=== PATIENT | female | born 1950 | race Caucasian/White ===

== ENCOUNTER → 2016-11-04 | Outpatient (CLI) | payer BC ==
--- NOTE | 2016-11-05 07:54 | MM ---
Reason for exam: screening (asymptomatic). Last mammogram was performed 2 years and 3 months ago. History: Patient is postmenopausal and has history of other cancer at age 59. Took hormonal contraceptives for 20 years. Physical Findings: A clinical breast exam by your physician is recommended on an annual basis and results should be correlated with mammographic findings. MG 3D Screening Mammo W/Cad Bilateral CC and MLO view(s) were taken. Prior study comparison: August 15, 2014, bilateral MG diagnostic mammo w CAD [facility]. January 03, 2013, [facility] DIGITAL LEFT BREAST MAMMOGRAM w/CAD. There are scattered fibroglandular densities. There is chronic nodularity bilaterally. No significant changes when compared with prior studies. ASSESSMENT: Benign, BI-RAD 2 RECOMMENDATION: Routine screening mammogram of both breasts in 1 year.
== END | disposition home or self-care (01) ==
LOC: RADMAMWWP 13:15
PROVIDERS: ATTEND Internal Medicine
DX: Z12.31 Encounter for screening mammogram for malignant neoplasm of breast (principal)
CPT/HCPCS: 77063; G0202

== ENCOUNTER → 2017-05-21 | Outpatient (CLI) | payer BC ==
[2017-05-21 13:24] LABS: Non-African American GFR(MDRD) >60 (>60 ml/min/1.73 sqM)
--- NOTE | 2017-05-27 16:20 | BMR ---
EXAMINATION TYPE: MR breast BILAT wo/w con DATE OF EXAM: 05/21/2017 COMPARISON: MRI Breast from an outside institution dated 01/05/2017. 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 History of chemotherapy without radiation. TECHNIQUE: A series of fat and water weighted images in the long and short axis views of both breasts are obtained in conjunction with dynamic contrast MRI with subtraction technique. The patient was i njected with 8 mL intravenous Gadavist gadolinium contrast. Three-dimensional and additional postpr ocessing imaging is created on independent workstation and reviewed during official interpretation of this study. FINDINGS: The breasts are composed of heterogenous fibroglandular tissue with asymmetric mild backgro und parenchymal enhancement. Distinct asymmetric moderate left breast thickening and edema is seen globally. Right breast: MediPort has been placed. No suspicious mass or nonmass enhancement. No skin thickening . No right-sided suspicious intramammary, internal mammary, or axillary adenopathy. Left breast: There is decrease in degree of enhancement of the known biopsy proven invasive ductal ca rcinoma at the 2:00 to 3:00 position, however this region has elongated now measuring 6.8 x 1.7 cm in anterior posterior by transverse dimensions (previously measuring 5.0 x 2.0 cm). Susceptibility ramonita fact is seen centrally within this region from prior biopsy. The previously seen suspicious mass at the 6:00 position approximately 9 cm from the nipple that mindy ured 1.6 x 1.3 x 1.2 cm is no longer evident on MR demonstrating response to treatment. The previously seen suspicious left axillary lymph nodes have decreased in size, however few lymph no elbert are clustered within the upper outer quadrant at posterior depth with somewhat rounded morphology . No suspicious internal mammary adenopathy is seen. Varicosity is noted from the right internal mamm eddy vasculature. IMPRESSION: BI-RADS [id number] left breast malignancy. There is response to treatment with decreased degree of enhancement in the biopsy-proven invasive ductal carcinoma the 2-3:00 position within the left evelyn ast and no appreciable enhancement of the previously described 1.6 cm mass at the 6:00 position appro ximately 9 cm from the nipple. The biopsy-proven carcinoma does appear more elongated on today's exam ination now measuring 6.8 x 1.7 cm and previously measuring 5.0 x 2.0 cm. If lumpectomy is planned de spite the elongated nature of the mass mammographic guided localization could be performed.
== END | disposition home or self-care (01) ==
LOC: RADMRIMAIN 12:43
PROVIDERS: ATTEND Surgery
DX: C50.912 Malignant neoplasm of unspecified site of left female breast (principal)
CPT/HCPCS: 82565; 77059; 0159T; 36415; A9581

== ENCOUNTER 2017-06-08 10:01 | Inpatient (IN) | payer BC ==
[2017-06-03 08:33] VITALS: BMI 31.9
[~2017-06-08 10:01] MED LIST: DEXAMETHASONE SOD PHOSPHATE 10 MG/ML 1 ML VIAL IV ONE; HEPARIN SODIUM,PORCINE 5,000 UNIT/ML 1 ML VIAL SQ ONE; HYDROmorphone 0.5 MG/0.5 ML SYRINGE IVP PRN; LACTATED RINGERS 1,000 ML IV SCH; LIDOCAINE 1% 20 ML VIAL (10MG/ML) FOR IV START INTRADERMA PRN; MIDAZOLAM 2 MG/2 ML VIAL IV PRN; ONDANSETRON 4 MG/2 ML VIAL IVP ONE; Pre Op ABX Message 1 EACH MISC MISCELLANE ONE; SCOPOLAMINE 1.5MG/72HR PATCH TRANSDERM ONE; ceFAZolin 2 GM in SODIUM CHLORIDE 0.9% 100 ML IVPB ONE
[2017-06-08] MEDS ORDERED: ALPRAZolam 0.5 MG TAB PO ONE (10:21)
[2017-06-08] MEDS ORDERED: METHYLENE BLUE 10 MG/ML (10 ML VIAL) INJ ONE (10:43)
--- NOTE | 2017-06-08 11:35 | NM ---
EXAMINATION TYPE: NM sentinel node injection DATE OF EXAM: 06/08/2017 COMPARISON: NONE HISTORY: Left-sided breast cancer TECHNIQUE AND FINDINGS: The procedure of sentinel lymph node injection was explained to the patient. The benefits, alternatives, and risks were discussed. An informed consent was then obtained. Overlying skin is cleaned with sterile alcohol. Lidocaine buffered with bicarbonate was used as anes thetic into the skin and subcutaneous tissue surrounding the nipple. Following this, 537 uCi Tc 99m Filtered Sulfur Colloid was injected into 4 equivalent doses at 12, 3, 6, and 9:00 position surroundi ng the left nipple intradermally. The injection sites were massaged by nuclear fuels research engineer for 10 minutes after injection. T he patient tolerated the procedure well without any immediate complication. The patient was kept in the radiology department for short stay after the procedure and then taken to surgery for surgical pr ocedure what is presumed intraoperative gamma probe will be used for sentinel lymph node detection. IMPRESSION: Left breast radiotracer injection for sentinel node localization as above.
[2017-06-08] MEDS ORDERED: LIDOCAINE 1% INJ 10MG/ML (20 ML MDV) ONE (12:19)
[2017-06-08] MEDS ORDERED: PROPOFOL 10 MG/ML 20 ML VIAL IV ONE (12:19)
[2017-06-08] MEDS ORDERED: HYDROmorphone (PF) 1 MG/ML ONE (12:19)
[2017-06-08] MEDS ORDERED: PHENYLEPHRINE-0.9% NACL SYG 1 MG/10 ML SYRINGE ONE (12:19)
[2017-06-08] MEDS ORDERED: SUCCINYLCHOLINE CHLORIDE 100 MG/5 ML SYR IV ONE (12:19)
[2017-06-08] MEDS ORDERED: MIDAZOLAM 2 MG/2 ML VIAL ONE (12:19)
[2017-06-08] MEDS ORDERED: fentaNYL (PF) 50 MCG/ML 2 ML AMP ONE (12:19)
[2017-06-08] MEDS ORDERED: ONDANSETRON 4 MG/2 ML VIAL IVP PRN (12:28)
[2017-06-08] MEDS ORDERED: LACTATED RINGERS 1,000 ML IV ONE (14:20)
[2017-06-08 15:09] LABS: Glucose,Whole Blood 128 mg/dL (75-99)
[2017-06-08] MEDS: HYDROmorphone 1 MG/ML 1 ML SYRINGE IVP PRN ×4 (15:27→15:34)
[2017-06-08] MEDS: HYDROcodone/APAP 5-325MG 1 EACH TAB PO PRN ×2 (16:30→19:56)
[2017-06-08] MEDS: LACTATED RINGERS 1,000 ML IV SCH ×2 (17:00→23:29)
[2017-06-08] MEDS: HEPARIN SODIUM,PORCINE 5,000 UNIT/ML 1 ML VIAL SQ SCH ×2 (18:09→23:45)
[2017-06-08] MEDS ORDERED: ACETAMINOPHEN TAB 325 MG TAB PO PRN (18:44)
[2017-06-08] MEDS ORDERED: FUROSEMIDE 20 MG TAB PO PRN (18:44)
[2017-06-08] MEDS ORDERED: ALPRAZolam 0.25 MG TAB PO PRN (18:44)
[2017-06-08] MEDS: VITAMIN E (DL,TOCOPHERYL ACET) 400 UNIT CAP PO SCH (21:12)
[2017-06-09] MEDS: HYDROmorphone 1 MG/ML 1 ML SYRINGE IVP PRN (01:17)
[2017-06-09] MEDS: HYDROcodone/APAP 5-325MG 1 EACH TAB PO PRN ×3 (05:41→15:19)
[2017-06-09 06:10] LABS: Glucose,Whole Blood 148 mg/dL (75-99)
[2017-06-09 06:23] LABS: Basophils % (A) 0 %; CH 30.6; Eosinophils # (A) 0.1 k/uL (0-0.7); Eosinophils % (A) 1 %; HCT 28.2 % (34.0-46.0); Luc # (Auto) 0.19; Luc % (Auto) 2; Lymphocytes # (A) 2.1 k/uL (1.0-4.8); Lymphocytes % (A) 22 %; MCH 30.3 pg (25.0-35.0); MCHC 32.5 g/dL (31.0-37.0); MCV 93.3 fL (80.0-100.0); Mean Platelet Volume 6.6; Monocytes # (A) 0.7 k/uL (0-1.0); Monocytes % (A) 7 %; Neutrophils # (A) 6.3 k/uL (1.3-7.7); Neutrophils % (A) 67 %; RBC 3.02 m/uL (3.80-5.40); RDW 13.7 % (11.5-15.5); WBC 9.4 k/uL (3.8-10.6); WBC (Perox) 9.62
[2017-06-09 06:24] LABS: HGB 9.2 gm/dL (11.4-16.0)
[2017-06-09 06:53] LABS: ALT 28 U/L (9-52); AST 21 U/L (14-36); Alkaline Phosphatase 52 U/L (38-126); Anion Gap 8 mmol/L; Blood Urea Nitrogen 17 mg/dL (7-17); Calcium 8.4 mg/dL (8.4-10.2); Carbon Dioxide 23 mmol/L (22-30); Chloride 103 mmol/L (98-107); Glucose 170 mg/dL (74-99); Magnesium 1.5 mg/dL (1.6-2.3); Non-African American GFR(MDRD) >60 (>60 ml/min/1.73 sqM); Phosphorous 3.9 mg/dL (2.5-4.5); Potassium 4.4 mmol/L (3.5-5.1); Sodium 134 mmol/L (137-145); Total Bilirubin 0.4 mg/dL (0.2-1.3); Total Protein 4.8 g/dL (6.3-8.2)
[2017-06-09] MEDS ORDERED: SODIUM CHLORIDE 0.9% 1,000 ML IV ONE (07:16)
[2017-06-09] MEDS ORDERED: RX INFO: IV CONTRAST WAS GIVEN 1 EACH MISC MISCELLANE PRN ×3 (07:18→12:06)
--- NOTE | 2017-06-09 08:19 | CT ---
EXAMINATION TYPE: CT chest angio for PE DATE OF EXAM: 06/09/2017 COMPARISON: 08/16/2012. HISTORY: PE, Lt mastectomy yesterday CT DLP: 664 mGycm. Automated Exposure Control for Dose Reduction was Utilized. CONTRAST: CTA scan of the thorax is performed with IV Contrast, patient injected with 100 mL of Omnipaque 350, pulmonary embolism protocol. MIP Images are created on CT scanner and reviewed. FINDINGS: LUNGS: Minimal subsegmental bibasilar dependent atelectasis is present, left greater than right. Righ t hemidiaphragm elevation is seen, similar to the exam of 08/16/2012. The lungs are grossly clear, th ere is no concerning parenchymal mass or nodule identified. There is no pleural effusion or pneumot horax seen. The tracheobronchial tree is patent. MEDIASTINUM: There is satisfactory enhancement of the pulmonary artery and its branches, there is no CT evidence for pulmonary embolism. There are no greater than 1 cm hilar or mediastinal lymph nodes. No cardiomegaly or pericardial effusion is seen. OTHER: Extensive inflammatory fat stranding, subcutaneous edema, and skin thickening as well as subcu taneous emphysema are seen of the left chest wall insinuating into the axilla. Surgical drain is also placed within the left chest wall. Few nonenlarged left supraclavicular lymph nodes are noted. Small hiatal hernia is seen with surgical sutures around the gastroesophageal junction. Osseous structures appear intact. IMPRESSION: 1. No evidence of pulmonary embolus. 2. Postoperative changes of extensive inflammatory fat stranding, subcutaneous edema, skin thickening , and subcutaneous edema of the left chest wall extending into the axilla with surgical drain in plac e. 3. Minimal bibasilar subsegmental dependent atelectasis, left greater than right.
[2017-06-09] MEDS: PANTOPRAZOLE 40 MG/10 ML VIAL IVP SCH (08:49)
[2017-06-09] MEDS: HEPARIN SODIUM,PORCINE 5,000 UNIT/ML 1 ML VIAL SQ SCH ×3 (08:49→23:30)
[2017-06-09] MEDS: ESCITALOPRAM 10 MG TAB PO SCH (08:49)
[2017-06-09] MEDS: VITAMIN E (DL,TOCOPHERYL ACET) 400 UNIT CAP PO SCH ×2 (08:49→20:30)
[2017-06-09] MEDS ORDERED: LISINOPRIL 10 MG TAB PO SCH (09:00)
[2017-06-09] MEDS ORDERED: NON-FORMULARY DRUG (Omega-3 Fatty Acids/Fish Oil [Fish Oil 1,000 Mg Softgel] 1 EACH) PO SCH (09:00)
[2017-06-09] MEDS ORDERED: NON-FORMULARY DRUG (Biotin [Biotin] 300 MCG) PO SCH (09:00)
[2017-06-09] MEDS: SODIUM CHLORIDE 0.9% 1,000 ML IV SCH ×2 (10:39→20:29)
[2017-06-09] MEDS: CALCIUM CARB-VIT D 500MG-200UN 1 EACH TAB PO SCH ×2 (10:39→18:00)
[2017-06-09 11:17] LABS: Glucose,Whole Blood 209 mg/dL (75-99)
--- NOTE | 2017-06-09 11:28 | P.CONS ---
History of Present Illness - Reason for Consult Consult date: 06/09/17 medical management Requesting physician: Preciosu Lubin - Chief Complaint status post a modified left mastectomy with lymph node dissection. - History of Present Illness This is a 66-year-old female patient of [facility] with past medical history of diabetes mellitus type 2, obstructive sleep apnea, morbid obesity status post gastric sleeve, gout, hypertension, recently diagnosed breast cancer and completed chemotherapy on 05/09/2017 and is now admitted to hospital under Dr. Lubin status post modified left mastectomy with the lymph node dissection, patient was admitted to the hospital under general surgery care and were asked to see the patient for medical management. Patient was sitting up in bed in the morning earlier at around 6:00 in the morning she sat at the edge of the bed and stood up for 1 minute and she started to walk around and felt suddenly she felt extremely weak hypertensive and elevated to the chair patient was sent down for a stat computed tomography scan of the chest that was negative for primary was some, patient was given a liter of lactated Ringer's and subsequently she was put on normal saline at her cc an hour her blood pressure is 112/70 she will be off her hypertension medicine for the next 24 hours, she will be kept in the hospital for another 24 hours for further evaluation. Review of Systems Constitutional: Reports fatigue, Reports weakness, Reports weight gain, Denies anorexia, Denies chronic headaches, Denies weight loss Eyes: denies blurred vision, denies bulging eye, denies decreased vision, denies diplopia Ears: deny: decreased hearing Ears, nose, mouth and throat: Denies dysphagia, Denies neck lump, Denies swelling in throat, Denies sore throat Cardiovascular: Reports high blood pressure, Reports syncope, Denies chest pain , Denies decreased exercise tolerance, Denies dyspnea on exertion, Denies phlebitis, Denies rapid heart beat, Denies shortness of breath Respiratory: Reports sleep apnea, Denies congestion, Denies cough, Denies cough with sputum, Denies home oxygen, Denies snoring, Denies wheezing Gastrointestinal: Denies abdominal pain, Denies bloating, Denies BRBPR, Denies heartburn, Denies hematemesis, Denies hematochezia, Denies indigestion, Denies melena, Denies nausea, Denies vomiting Genitourinary: Denies dysuria, Denies hematuria Menstruation: Reports postmenopausal Musculoskeletal: Reports as per HPI Musculoskeletal: absent: ankle pain, ankle stiffness, ankle swelling, elbow pain , elbow stiffness, elbow swelling, foot pain, foot stiffness, foot swelling, hand pain, hand stiffness, hand swelling, hip pain, hip stiffness, hip swelling , knee pain, knee stiffness, knee swelling, shoulder pain, shoulder stiffness, shoulder swelling, wrist pain, wrist stiffness, wrist swelling Integumentary: Denies pruritus, Denies rash Neurological: Denies numbness, Denies weakness Psychiatric: Denies anxiety, Denies depression Endocrine: Denies fatigue, Denies weight change Past Medical History Past Medical History: Cancer, Diabetes Mellitus, Hyperlipidemia, Hypertension, Osteoarthritis (OA), Sleep Apnea/CPAP/BIPAP Additional Past Medical History / Comment(s): varicose veins, skin cancer, breast cancer, hx gout, finished chemo 05/09/17, no longer problems with diabetes since gastric sleeve History of Any Multi-Drug Resistant Organisms: None Reported Past Surgical History: Bariatric Surgery, Breast Surgery, Section, Hernia Repair, Tonsillectomy, Tubal Ligation Additional Past Surgical History / Comment(s): sleeve gastrectomy 09/03/13, colonoscopy, EGD, left breast biopsy, left breast mastectomy 06/08/17 Past Anesthesia/Blood Transfusion Reactions: No Reported Reaction Past Psychological History: No Psychological Hx Reported Smoking Status: Never smoker Past Alcohol Use History: None Reported Past Drug Use History: None Reported - Past Family History Mother Family Medical History: Cancer (mother at age of 84 from lung cancer.) Additional Family Medical History / Comment(s): lung Father Family Medical History: Congestive Heart Failure (CHF) (father in his 70s from congestive heart failure.) Daughter(s) Family Medical History: Hypertension (patient has 2 daughters with hypertension. ) Brother(s) Family Medical History: Coronary Artery Disease (CAD) (patient has one brother who has CAD.) Sister(s) Family Medical History: Diabetes Mellitus (patient had one sister who from competition due to diabetes complications.) Medications and Allergies Home Medications Medication Instructions Recorded Confirmed Type Biotin 300 mcg PO DAILY 02/18/14 06/08/17 History Calcium Citrate/Vitamin D3 1 each PO BID 02/18/14 06/08/17 History [Calcium Citrate - Vit D3 Tab] Escitalopram [Lexapro] 10 mg PO DAILY 02/18/14 06/08/17 History Lisinopril [Zestril] 20 mg PO DAILY 03/06/14 06/08/17 History Vitamin E (Dl,Tocopheryl Acet) 400 unit PO BID 03/06/14 06/08/17 History [Vitamin E] Furosemide [Lasix] 10 mg PO DAILY PRN 08/28/14 06/08/17 History ALPRAZolam [Xanax] 0.25 mg PO Q6HR PRN 01/17/17 06/08/17 History Ascorbic Acid [Vitamin C] 500 mg PO DAILY 04/11/17 06/08/17 History Acetaminophen [Tylenol] 325 mg PO Q4H PRN 06/03/17 06/08/17 History Aspirin [Adult Low Dose Aspirin EC] 81 mg PO DAILY 06/03/17 06/08/17 History Cholecalciferol [Vitamin D3] 1,000 unit PO DAILY 06/03/17 06/08/17 History Ibuprofen [Motrin] 200 - 400 mg PO Q6HR PRN 06/03/17 06/08/17 History Multivitamins, Thera [Multivitamin 1 tab PO DAILY 06/03/17 06/08/17 History (formulary)] [place]-3 Fatty Acids/Fish Oil [Fish 1 each PO DAILY 06/03/17 06/08/17 History Oil 1,000 mg Softgel] Docusate [Colace] 100 mg PO BID #30 capsule 06/08/17 Rx Hydrocodone/Acetaminophen [Raymond 1 each PO Q6HR PRN #30 tab 06/08/17 Rx 5-325] Allergies Allergy/AdvReac Type Severity Reaction Status Date / Time Sulfa (Sulfonamide Allergy Anaphylaxis Verified 06/08/17 10:15 Antibiotics) honey AdvReac Unknown Verified 06/08/17 10:15 Physical Exam Vitals: Vital Signs Temp Pulse Resp BP Pulse Ox 06/09/17 09:15 88 112/54 06/09/17 08:16 97 06/09/17 08:15 79 123/51 06/09/17 07:53 97.8 F 84 18 87/47 98 06/09/17 07:14 16 87/47 95 06/09/17 06:55 76 91/52 97 06/09/17 06:23 71 96/57 06/09/17 06:19 67 100/60 06/09/17 06:05 71 116/68 06/09/17 06:00 69 114/67 06/09/17 05:59 79 107/62 06/09/17 05:58 92 119/60 06/09/17 05:56 81 138/63 06/09/17 05:55 85 81/57 06/08/17 23:48 79 134/93 99 06/08/17 23:00 97.5 F L 92 18 169/81 99 06/08/17 18:17 78 16 155/83 97 06/08/17 17:25 83 16 166/68 95 06/08/17 16:31 98 F 96 16 193/95 100 06/08/17 16:00 87 16 154/75 94 L 06/08/17 15:55 98 16 158/82 93 L 06/08/17 15:40 84 16 152/83 100 06/08/17 15:30 80 16 179/82 100 06/08/17 15:00 87 16 169/90 100 06/08/17 14:55 97.8 F 87 16 174/84 100 06/08/17 10:30 96.9 F L 77 16 141/86 93 L Intake and Output 06/08/17 06/09/17 06/09/17 22:59 06:59 14:59 Intake Total 300 Output Total 60 55 Balance 240 -55 Intake: IV 300 Lactated Ringers 1,000 ml 300 @ 75 mls/hr IV .[id number] [facility] Rx#:[id number] Output: Drainage 40 55 Left Breast 20 Left Chest 20 camelia#1 25 camelia#2 30 Estimated Blood Loss 20 Other: Voiding Method Toilet # Voids 1 Weight 84.368 kg - Constitutional General appearance: average body habitus, no acute distress - EENT Eyes: anicteric sclerae, EOMI, PERRLA, no ptosis, no scleral icterus, normal appearance ENT: hearing grossly normal, NA/AT, normal oropharynx, no thrush Ears: bilateral: normal - Neck Neck: no lymphadenopathy, normal ROM, no rigidity, no stridor, no thyromegaly Carotids: bilateral: upstroke normal Thyroid: bilateral: normal size - Respiratory Respiratory: bilateral: diminished, negative: dullness, rales, rhonchi, wheezing , prolonged expiration, prolonged inspiration - Cardiovascular Rhythm: regular Heart sounds: normal: S1, S2 Abnormal Heart Sounds: no S3 Gallop, no S4 Gallop, no click - Gastrointestinal General gastrointestinal: soft, no splenomegaly, no tenderness, no umbilical hernia, no ventral hernia - Integumentary Integumentary: normal, normal turgor - Neurologic Neurologic: CNII-XII intact - Musculoskeletal Musculoskeletal: generalized weakness, strength equal bilaterally - Psychiatric Psychiatric: A&O x's 3, appropriate affect, intact judgment & insight Results CBC & Chem 7: 06/09/17 06:10 06/09/17 06:10 Labs: Abnormal Lab Results - Last 24 Hours (Table) 06/08/17 06/09/17 06/09/17 Range/Units 15:06 05:48 06:10 RBC 3.02 L (3.80-5.40) m/uL Hgb 9.2 L D (11.4-16.0) gm/dL Hct 28.2 L (34.0-46.0) % Sodium (137-145) mmol/L Glucose (74-99) mg/dL POC Glucose (mg/dL) 128 H 148 H (75-99) mg/dL Magnesium (1.6-2.3) mg/dL Total Protein (6.3-8.2) g/dL Albumin (3.5-5.0) g/dL 06/09/17 Range/Units 06:10 RBC (3.80-5.40) m/uL Hgb (11.4-16.0) gm/dL Hct (34.0-46.0) % Sodium 134 L (137-145) mmol/L Glucose 170 H (74-99) mg/dL POC Glucose (mg/dL) (75-99) mg/dL Magnesium 1.5 L (1.6-2.3) mg/dL Total Protein 4.8 L (6.3-8.2) g/dL Albumin 2.7 L (3.5-5.0) g/dL Assessment and Plan Plan: Assessment and plan: 1. Post operative day #1 status post modified left mastectomy with lymph node dissection. Continue the use of incentive Stromberger to reduce the incidence of atelectasis and hospital-acquired pneumonia, continue to monitor the patient very closely, change IV fluid to normal saline at 100 mL an hour for the next 24 hours, encourage oral intake of fluids, advance diet as tolerated, his activity as tolerated with help. 2. Presyncope thought to be due to orthostatic hypotension. Hemoglobin did drop about half grams, we will recheck her CBC tomorrow morning. Transfuse for hemoglobin less than 7, continue IV fluid resuscitation normal saline 100 mL an hour for the next 24 hours. 3. History of the breast cancer status post the chemoradiation therapy as well as modified left mastectomy with lymph node dissection post chemo therapy that was done in April 2017 on Herceptin, and her the care of hematology oncology. 4. Hypertension and hypertensive cardio vascular disease. Currently hypotensive hold lisinopril for the next 24 hours. 5. Strict diabetes mellitus type 2. This is has not become an issue since patient underwent major weight loss after sleeve gastrectomy. Monitor the patient very closely. 6. Hyperlipidemia. Stable at this point in time. 7. Anxiety and depressive disorder. Continue Lexapro 10 mg orally once every day. 8. Acute blood loss anemia. Repeat CBC tomorrow morning transfuse for hemoglobin less than 8. 9. DVT prophylaxis. Bilateral knee-high VERA hose as well as heparin 5000 units subcutaneously every 12 hours, encourage ambulation. 10. GI prophylaxis. Continue Protonix 40 mg orally once every day. 11. Thank you Dr. Lubin for allowing me to participate in the care of your patient, we will follow the patient along with you.
--- NOTE | 2017-06-09 11:41 | P.OP ---
Date of Procedure: 06/08/17 Preoperative Diagnosis: Left breast cancer S/P neoadjuvant chemotherapy Postoperative Diagnosis: Same Procedure(s) Performed: Left modified radical mastectomy Implants: JAROD drainsx2 Anesthesia: JASVIR Surgeon: Precious Lubin Estimated Blood Loss (ml): 50 Pathology: other Disposition: PACU Indications for Procedure: 66 yrs old female presents S/P neoadjuvant chemotherapy for left breast cancer presents for left mastectomy with sentinel lymph node biopsy possible axillary lymph node dissection. Operative Findings: 1. Left breast simple mastectomy performed 2. The gamma probe did not detect radioisotope signal/hot spot in the left axilla. No blue nodes detected in the axilla 3. Three palpable lymph nodes from the axilla were sent, one of which showed some scarring and possible treatment effect. Hence decision to perform axillary lymph node dissection Description of Procedure: The patient underwent injection of radioisotope in the left breast in radiology department. She was brought to the operating room and placed in supine position with both arms out. 5 mL of methylene blue was injected in the subdermal plane at 4 quadrants around the areola and the breast was massaged for 5 minutes . General anesthesia with endotracheal intubation was performed as per anesthesia team. No muscle relaxants were given. Chlorhexidine was used to prep the left breast and left axilla Sterile drapes were applied. A timeout was performed to verify correct patient and correct procedure. Patient was confirmed to receive perioperative IV antibiotics, heparin 5000 units subcutaneous injection for the VTE prophylaxis and bilateral SCDs were placed. A hand-held gamma probe was used to detect signals overlying the breast. Radioisotope signal was not obtained in the axilla. An elliptical skin incision was made to incorporate the nipple and the areola. Subcutaneous flaps were raised superiorly up to the clavicle medially up to the lateral border of the sternum, laterally up to pectoralis major and inferiorly up to the inframammary crease. The breast tissue was taken off the chest wall including the pectoralis fascia. Hemostasis was checked in the flaps. Short superior and long lateral sutures were used to orient the mastectomy specimen The axillary skin incision was extended from the lateral edge of the pectoralis major muscle to the anterior edge of the latissimus dorsi muscle. Flaps were raised cephalad and caudad to the estimated level of the axillary vein superiorly and the edge of the pectoralis major medially using electrocautery. The clavicopectoral fascia was then incised along the edge of the pectoralis major and the pectoralis major and minor were freed from the surrounding fat and cherelle tissue. No blue dye or radioactive isotope signal could be obtained in the left axilla. There were 3 lymph nodes identified in the left axilla lateral to pectoralis minor muscle which were sent for frozen section. One of the lymph nodes appeared scarred and bulky . Since no blue dye or radioisotope signal was obtained, decision was made to perform ALND. Dissection progressed first under pectoralis major and then under the pectoralis minor muscle. The pectoralis muscles were retracted medially with a Franz retractor. The medial pectoral neurovascular bundle was identified and preserved. The level II cherelle tissue deep to the pectoralis minor was included in the dissection. The axillary vein was also identified and cleared of overlying fat. The first branch off the axillary vein was clamped, divided and tied with 2-0 silk ties. Thoracodorsal nerve was then identified deep to the ligated vein and preserved the long thoracic nerve was identified along the edge of the latissimus dorsi on the chest wall and preserved. The remaining cherelle tissue between these nerves was then carefully removed, taking care to protect the nerves. The specimen was then sent to pathology. The cavity was irrigated with normal saline. 2 flat JAROD drain was left in the axilla and was brought out through a separate stab incision . The resulting cavity was checked for hemostasis. Additional fatty tissue taken from inferior area and sent as additional inferior margin. The cavity was then closed in layers using 3-0 interrupted Vicryl and 4-0 running Monocryl subcuticular sutures. Pervena wound vac applied. Sponge, instrument and needle count were correct 2. Patient tolerated the procedure well and was taken to postanesthesia care unit in stable condition Specimen(s) Received A. Lymph Node, [place] Biopsy B. Lymph Node, [place] Biopsy C. Lymph Node, [place] Biopsy D. Breast Simple Mastectomy No Nodes - Left Breast E. Breast, with Margins/Lumpectomy - Additional Inferior Margin Left Breast F. Lymph Nodes, Axillary Clinical History Left breast cancer. Left breast simple mastectomy with sentinel lymph node biopsy. Modified radical left breast mastectomy. History of invasive ductal carcinoma with apocrine change left breast, status post neoadjuvant chemotherapy treatment. Intraoperative Diagnosis FROZEN SECTION DIAGNOSIS A-C. SENTINEL NODES 1-3: NEGATIVE FOR CARCINOMA. FOCAL FIBROSIS SEEN IN B, CANNOT EXCLUDE PREVIOUS METASTASIS WITH CHEMO RESPONSE. I, the undersigned pathologist, have confirmed the patient's identification and verbally delivered the report to the submitting clinician.Dictated by: Lakeshia Tadeo MD Final Pathologic Diagnosis A. SENTINEL LYMPH NODE #1, BIOPSY: LYMPH NODE NEGATIVE FOR METASTASIS. CK7 AND PERFECTO IMMUNOPEROXIDASE STAINS ARE CONFIRMATORY (CONTROLS APPROPRIATE). BENIGN FIBROADIPOSE TISSUE. B. SENTINEL LYMPH NODE #2, BIOPSY: AT LEAST TWO LYMPH NODES NEGATIVE FOR METASTASIS. CK7 AND PERFECTO IMMUNOPEROXIDASE STAINS ARE CONFIRMATORY (CONTROLS APPROPRIATE). FOCAL SCAR WITH FIBROSIS AND CHRONIC INFLAMMATION, CANNOT EXCLUDE PREVIOUS METASTASIS WITH COMPLETE PATHOLOGIC RESPONSE TO NEOADJUVANT CHEMOTHERAPY TREATMENT. BENIGN FIBROADIPOSE TISSUE. C. SENTINEL LYMPH NODE #3, BIOPSY: LYMPH NODE NEGATIVE FOR METASTASIS. CK7 AND PERFECTO IMMUNOPEROXIDASE STAINS ARE CONFIRMATORY (CONTROLS APPROPRIATE). D. BREAST, LEFT, MASTECTOMY: SCAR WITH FIBROSIS, CHRONIC INFLAMMATION AND HISTIOCYTES, FOCAL LOBULAR NEOPLASIA (ALH/LCIS), AND FIBROCYSTIC CHANGES. NO RESIDUAL INVASIVE MALIGNANCY IDENTIFIED STATUS POST NEOADJUVANT CHEMOTHERAPY TREATMENT. SEE SURGICAL PATHOLOGY CANCER CASE SUMMARY AND COMMENT. E. ADDITIONAL INFERIOR MARGIN, LEFT BREAST, EXCISION: BENIGN FIBROADIPOSE TISSUE. F. AXILLARY CONTENTS: ELEVEN TOTAL LYMPH NODES, ALL NODES NEGATIVE FOR METASTATIC MALIGNANCY. CAM 5.2 AND PERFECTO IMMUNOPEROXIDASE STAINS PERFORMED ON BLOCK F2 ARE CONFIRMATORY (CONTROLS APPROPRIATE). FOCAL SCAR WITH FIBROSIS AND CHRONIC INFLAMMATION, CANNOT EXCLUDE PREVIOUS METASTASIS WITH COMPLETE PATHOLOGIC RESPONSE TO NEOADJUVANT TREATMENT. Notes SURGICAL PATHOLOGY CANCER CASE SUMMARY: INVASIVE CARCINOMA OF THE BREAST Procedure: Total mastectomy (including nipple and skin). Lymph Node Sampling: [place] lymph nodes and axillary dissection. Specimen Laterality: Left. Tumor Size: No residual invasive carcinoma after presurgical (neoadjuvant) therapy. Histologic Type: No residual invasive carcinoma after presurgical (neoadjuvant ) therapy. Histologic Grade (Ruth Histologic Score): Glandular (Acinar)/Tubular Differentiation: No residual invasive carcinoma after presurgical (neoadjuvant) therapy. Nuclear Pleomorphism: No residual invasive carcinoma after presurgical ( neoadjuvant) therapy. Mitotic Rate: No residual invasive carcinoma after presurgical (neoadjuvant) therapy. Overall Grade: No residual invasive carcinoma after presurgical (neoadjuvant) therapy. Tumor Focality: No residual invasive carcinoma after presurgical (neoadjuvant) therapy. Ductal Carcinoma In Situ (DCIS): No DCIS is present. Lobular Carcinoma In Situ (LCIS): Present, see comment. Margins: Margins uninvolved by invasive carcinoma and DCIS. Distance from Closest Margin: Cannot be determined, no residual invasive carcinoma or DCIS identified. Lymph Nodes: Total Number of Lymph Nodes Examined ([place] and Non-[place]): At least 14. Number of [place] Lymph Nodes Examined: At least 4. Number of Lymph Nodes with Macrometastases, Micrometastases or Isolated Tumor Cells: 0. Treatment Effect (Response to presurgical (Neoadjuvant) therapy): In the Breast: No residual invasive carcinoma in the breast after presurgical therapy. In the Lymph Nodes: No lymph node metastases. Fibrous scarring, possibly related to prior lymph node metastases with pathologic complete response. Pathologic Staging (pTNM, modifier y (post treatment)): Primary Tumor: No evidence of primary tumor status post neoadjuvant chemotherapy treatment (ypT0). Regional Lymph Nodes: No regional lymph node metastases histologically, negative IHC (ypN0(i-)). Distant Metastasis: Not applicable. Additional Pathologic Findings: Scar with chronic inflammation, fibrosis and histiocytes consistent with neoadjuvant chemotherapy related changes. Fibrocystic changes. Seborrheic keratosis of nipple skin. Ancillary Studies: ER, [place], Her2/Festus studies where performed on the previous core biopsy specimen at an outside facility. COMMENT: Sections of breast (part D) show areas of scar with fibrosis, chronic inflammation and histiocytes consistent with presurgical neoadjuvant chemotherapy related changes. No residual invasive tumor is identified. There are focal lobules expanded by monotonous atypical cells. CK5/6 and E-cadherin immunoperoxidase stains performed on blocks D3 and D4 and evaluated with appropriate controls show the atypical cells within these lobules to be immunohistochemically negative for CK 5/6 and E-Cadherin. CK 5/6 highlights a surrounding myoepithelial layer. The results confirm the diagnosis of lobular neoplasia (ALH/LCIS).
[2017-06-09 11:51] LABS: ALT 36 U/L (9-52); AST 19 U/L (14-36); Alkaline Phosphatase 56 U/L (38-126); Blood Urea Nitrogen 18 mg/dL (7-17); Calcium 8.1 mg/dL (8.4-10.2); Carbon Dioxide 21 mmol/L (22-30); Chloride 104 mmol/L (98-107); Glucose 197 mg/dL (74-99); Non-African American GFR(MDRD) >60 (>60 ml/min/1.73 sqM); Potassium 4.2 mmol/L (3.5-5.1); Total Bilirubin 0.3 mg/dL (0.2-1.3); Total Protein 4.6 g/dL (6.3-8.2)
[2017-06-09 11:53] LABS: Anion Gap 8 mmol/L; Sodium 133 mmol/L (137-145)
--- NOTE | 2017-06-09 11:53 | P.PN ---
Subjective Progress Note Date: 06/09/17 66-year-old female seen and examined. Events noted during the night. A team called at 6 AM this morning. Patient reportedly had an episode of slightly disoriented getting up to ambulate felt dizzy lightheaded lost control over bladder systolic blood pressure at the time of the event 90/52-80/47 was notified ordered a CAT scan of the chest showed no evidence of a pulmonary emboli Patient contributed the event to the IV DILAUDID which was given at 1:00 in the morning currently this morning the patient is sitting up in bed pleasant cooperative talkative blood pressure 110 over 50s the heart rate is in the 80s to 90s room air sats are 97% patient's afebrile hemoglobin this morning 9.2 the remaining labs within normal limits At 11:30 this morning called to see patient with Dr. chau for an episode the patient was diaphoretic felt like she is going to pass out eyes rolled in the back the had nonresponsive incontinent a urine blood sugar 209 blood pressure 90/54 heart rate in the 70s afebrile now labs were ordered the CT of the brain ordered transfer to the ICU for closer monitoring this was discussed with the patient and the family at the bedside by dr chau Patient is postop June 09 left breast modified radical mastectomy with sentinel lymph node biopsy with Objective - Vital Signs Vital signs: Vital Signs Temp 97.8 F 06/09/17 07:53 Pulse 88 06/09/17 09:15 Resp 18 06/09/17 07:53 BP 112/54 06/09/17 09:15 Pulse Ox 97 06/09/17 08:16 Intake & Output 06/08/17 06/09/17 06/09/17 18:59 06:59 18:59 Intake Total 1300 300 Output Total 85 55 Balance 1215 245 Weight 84.368 kg Intake: IV 1300 300 Lactated Ringers 1,000 ml 300 @ 75 mls/hr IV .[id number] [facility] Rx#:[id number] Output: Drainage 40 55 Left Breast 20 Left Chest 20 camelia#1 25 camelia#2 30 Estimated Blood Loss 45 Other: Voiding Method Toilet Toilet Bedside Commode # Voids 1 - Exam Physical exam 66-year-old female pleasant cooperative oriented 3 aware of episodes of dizziness lightheadedness Lungs diminished at the bases otherwise adequate air movement Heart S1-S2 audible regular no murmur noted Abdomen soft nontender urinating no difficulty reports a nausea sensation Extremities Venodyne's on to the bilateral lower extremities Chest 2 CAMELIA drains left anterior chest wall with prevena VAC in place dressing to surgical site dry - Labs CBC & Chem 7: 06/09/17 06:10 06/09/17 06:10 Labs: Abnormal Lab Results - Last 24 Hours (Table) 06/08/17 06/09/17 06/09/17 Range/Units 15:06 05:48 06:10 RBC 3.02 L (3.80-5.40) m/uL Hgb 9.2 L D (11.4-16.0) gm/dL Hct 28.2 L (34.0-46.0) % Sodium (137-145) mmol/L Glucose (74-99) mg/dL POC Glucose (mg/dL) 128 H 148 H (75-99) mg/dL Magnesium (1.6-2.3) mg/dL Total Protein (6.3-8.2) g/dL Albumin (3.5-5.0) g/dL 06/09/17 Range/Units 06:10 RBC (3.80-5.40) m/uL Hgb (11.4-16.0) gm/dL Hct (34.0-46.0) % Sodium 134 L (137-145) mmol/L Glucose 170 H (74-99) mg/dL POC Glucose (mg/dL) (75-99) mg/dL Magnesium 1.5 L (1.6-2.3) mg/dL Total Protein 4.8 L (6.3-8.2) g/dL Albumin 2.7 L (3.5-5.0) g/dL Assessment and Plan Plan: Impression Status post modified left mastectomy with lymph node dissection done on the 08 of June Type 2 diabetes Obesity BMI 31 Recent diagnosed left breast cancer completed chemotherapy April 2017 Postop episode syncopal episode unclear etiology Postop acute blood loss anemia Plan Will order now CBC troponin electrolytes Consult neurology for the syncopal episode Computed tomography scan of the brain Transfer patient to the ICU for close monitoring Consult gear lapping machine operator for ICU management IV fluid 100 and hour monitor The above impression and plan of care have been discussed and directed by signing physician. Sanjana Valero nurse practitioner acting as scribe for signing physician.
[2017-06-09] MEDS: MULTIVITAMINS, THERA 1 EACH TAB PO SCH (12:17)
[2017-06-09] MEDS: MAGNESIUM SULFATE-D5W PMX 1 GM in DEXTROSE/WATER 1 100ML.BAG IVPB SCH ×2 (12:17→14:26)
[2017-06-09] MEDS: ASCORBIC ACID 500 MG TAB PO SCH (12:18)
[2017-06-09] MEDS: CHOLECALCIFEROL 1,000 UNIT TAB PO SCH (12:18)
[2017-06-09 12:19] LABS: Basophils % (A) 0 %; CH 30.9; Eosinophils % (A) 0 %; HCT 25.8 % (34.0-46.0); HDW 3.03; HGB 8.3 gm/dL (11.4-16.0); Hypochromasia Slight; Luc # (Auto) 0.14; Luc % (Auto) 1; Lymphocytes # (A) 1.9 k/uL (1.0-4.8); Lymphocytes % (A) 19 %; MCH 31.4 pg (25.0-35.0); MCHC 32.2 g/dL (31.0-37.0); MCV 97.3 fL (80.0-100.0); Mean Platelet Volume 7.3; Monocytes # (A) 0.6 k/uL (0-1.0); Monocytes % (A) 6 %; Neutrophils # (A) 7.4 k/uL (1.3-7.7); Neutrophils % (A) 73 %; RBC 2.65 m/uL (3.80-5.40); RDW 14.1 % (11.5-15.5); WBC 10.1 k/uL (3.8-10.6); WBC (Perox) 10.28
--- NOTE | 2017-06-09 12:59 | P.CNPUL ---
History of Present Illness Consult date: 06/09/17 Chief complaint: Presyncope History of present illness: A 66-year-old female patient who underwent a left mastectomy. The patient is postop day #1. The patient is also known to me regarding her atelectasis history of obstructive sleep apnea. She was morbidly obese and she has undergone gastric sleeve surgery with successful weight loss. She also has issues with diabetes mellitus and more recently she was diagnosed having breast cancer and she has completed chemotherapy on 05/09/2017 and she was admitted for a left mastectomy and lymph node dissection. Surgery was done without any complications. The patient was on a medical floor when she was trying to get out to the bathroom and she felt dizzy and she had an episode of presyncope. During that time she dropped her blood pressure down to the mid 80s. She was placed back in bed. A CT angios the chest was done that showed no acute abnormalities and there was no evidence of PE or pneumonia. She had another episode where she was laying down in bed and she felt nauseous and sweaty and she had a another episode of presyncope without any tonic body postures or any jerking body movements in upper and lower extremities. Currently she is doing well. CAT scan of the brain will be done. No speech deficits pH is fully alert and awake. She is following commands. She is answering questions. No focal neurological deficit. No vision changes. No speech changes. She is hemodynamically stable. Blood sugar during these episodes showed a level of above 200. No cardiac arrhythmias have been noted. Cardiac rhythm is sinus. EKG and cardiac enzymes are to follow. Review of Systems Constitutional: Reports fatigue, Reports weakness Eyes: denies blurred vision, denies bulging eye, denies decreased vision Ears: deny: decreased hearing, ear discharge, earache Ears, nose, mouth and throat: Denies headache, Denies sore throat Cardiovascular: Reports as per HPI Respiratory: Reports as per HPI Gastrointestinal: Reports nausea Genitourinary: Denies dysuria, Denies hematuria Musculoskeletal: Denies myalgias Musculoskeletal: absent: ankle pain, ankle stiffness, ankle swelling Integumentary: Reports wounds (Left anterior chest area with a placement of a wound VAC in 2 CAMELIA drains are also in place.) Neurological: Reports syncope, Reports weakness Psychiatric: Denies anxiety, Denies depression Endocrine: Denies fatigue, Denies weight change Past Medical History Past Medical History: Cancer, Diabetes Mellitus, Hyperlipidemia, Hypertension, Osteoarthritis (OA), Sleep Apnea/CPAP/BIPAP Additional Past Medical History / Comment(s): Obstructive sleep apnea, diabetes mellitus, history of obesity, varicose veins, skin cancer, breast cancer, hx gout, finished chemo 05/09/17, no longer problems with diabetes since gastric sleeve History of Any Multi-Drug Resistant Organisms: None Reported Past Surgical History: Bariatric Surgery, Breast Surgery, Section, Hernia Repair, Tonsillectomy, Tubal Ligation Additional Past Surgical History / Comment(s): sleeve gastrectomy 09/03/13, colonoscopy, EGD, left breast biopsy, left breast mastectomy 06/08/17 Past Anesthesia/Blood Transfusion Reactions: No Reported Reaction Past Psychological History: No Psychological Hx Reported Smoking Status: Never smoker Past Alcohol Use History: None Reported Past Drug Use History: None Reported - Past Family History Mother Family Medical History: Cancer (mother at age of 84 from lung cancer.) Additional Family Medical History / Comment(s): lung Father Family Medical History: Congestive Heart Failure (CHF) (father in his 70s from congestive heart failure.) Daughter(s) Family Medical History: Hypertension (patient has 2 daughters with hypertension. ) Brother(s) Family Medical History: Coronary Artery Disease (CAD) (patient has one brother who has CAD.) Sister(s) Family Medical History: Diabetes Mellitus (patient had one sister who from competition due to diabetes complications.) Medications and Allergies Home Medications Medication Instructions Recorded Confirmed Type Calcium Citrate/Vitamin D3 1 each PO BID 02/18/14 06/08/17 History [Calcium Citrate - Vit D3 Tab] Escitalopram [Lexapro] 10 mg PO DAILY 02/18/14 06/08/17 History Vitamin E (Dl,Tocopheryl Acet) 400 unit PO BID 03/06/14 06/08/17 History [Vitamin E] Furosemide [Lasix] 10 mg PO DAILY PRN 08/28/14 06/08/17 History ALPRAZolam [Xanax] 0.25 mg PO Q6HR PRN 01/17/17 06/08/17 History Ascorbic Acid [Vitamin C] 500 mg PO DAILY 04/11/17 06/08/17 History Acetaminophen [Tylenol] 325 mg PO Q4H PRN 06/03/17 06/08/17 History Aspirin [Adult Low Dose Aspirin EC] 81 mg PO DAILY 06/03/17 06/08/17 History Cholecalciferol [Vitamin D3] 1,000 unit PO DAILY 06/03/17 06/08/17 History Ibuprofen [Motrin] 200 - 400 mg PO Q6HR PRN 06/03/17 06/08/17 History Multivitamins, Thera [Multivitamin 1 tab PO DAILY 06/03/17 06/08/17 History (formulary)] [place]-3 Fatty Acids/Fish Oil [Fish 1 each PO DAILY 06/03/17 06/08/17 History Oil 1,000 mg Softgel] Docusate [Colace] 100 mg PO BID #30 capsule 06/08/17 Rx Hydrocodone/Acetaminophen [[place] 1 each PO Q6HR PRN #30 tab 06/08/17 Rx 5-325] Biotin 300 mcg PO DAILY 06/09/17 06/09/17 History Lisinopril [Zestril] 20 mg PO DAILY 06/09/17 06/09/17 History Allergies Allergy/AdvReac Type Severity Reaction Status Date / Time Sulfa (Sulfonamide Allergy Anaphylaxis Verified 06/08/17 10:15 Antibiotics) honey AdvReac Unknown Verified 06/08/17 10:15 Physical Exam Vitals: Vital Signs Temp Pulse Resp BP Pulse Ox 06/09/17 11:07 80 109/54 94 L 06/09/17 09:15 88 112/54 06/09/17 08:16 97 06/09/17 08:15 79 123/51 06/09/17 07:53 97.8 F 84 18 87/47 98 06/09/17 07:14 16 87/47 95 06/09/17 06:55 76 91/52 97 06/09/17 06:23 71 96/57 06/09/17 06:19 67 100/60 06/09/17 06:05 71 116/68 06/09/17 06:00 69 114/67 06/09/17 05:59 79 107/62 06/09/17 05:58 92 119/60 06/09/17 05:56 81 138/63 06/09/17 05:55 85 81/57 06/08/17 23:48 79 134/93 99 06/08/17 23:00 97.5 F L 92 18 169/81 99 06/08/17 18:17 78 16 155/83 97 06/08/17 17:25 83 16 166/68 95 06/08/17 16:31 98 F 96 16 193/95 100 06/08/17 16:00 87 16 154/75 94 L 06/08/17 15:55 98 16 158/82 93 L 06/08/17 15:40 84 16 152/83 100 06/08/17 15:30 80 16 179/82 100 06/08/17 15:00 87 16 169/90 100 06/08/17 14:55 97.8 F 87 16 174/84 100 Intake and Output 06/08/17 06/09/17 06/09/17 22:59 06:59 14:59 Intake Total 300 Output Total 60 55 Balance 240 -55 Intake: IV 300 Lactated Ringers 1,000 ml 300 @ 75 mls/hr IV .[id number] [facility] Rx#:[id number] Output: Drainage 40 55 Left Breast 20 Left Chest 20 camelia#1 25 camelia#2 30 Estimated Blood Loss 20 Other: Voiding Method Toilet Toilet Bedside Commode # Voids 1 Weight 84.368 kg Gen. appearance the patient is calm and comfortable. The patient not having any respiratory difficulties. She is alert and awake. She is asked to questions appropriately. Head exam was generally normal. There was no scleral icterus or corneal arcus. Mucous membranes were moist.Neck was supple and without jugular venous distension, thyromegaly, or carotid bruits. Carotids were easily palpable bilaterally. There was no adenopathy.Lungs were clear to auscultation and percussion, and with normal diaphragmatic excursion. No wheezes or rales were noted. Cardiac exam revealed the PMI to be normally situated and sized. The rhythm was regular and no extrasystoles were noted during several minutes of auscultation. The first and second heart sounds were normal and physiologic splitting of the second heart sound was noted. There were no murmurs, rubs, clicks, or gallops.Abdominal exam revealed normal bowel sounds. The abdomen was soft, non-tender, and without masses, organomegaly, or appreciable enlargement of the abdominal aorta.Examination of the extremities revealed easily palpable radial, femoral and pedal pulses. There was no cyanosis , clubbing or edema. The surgical wound site over the left anterior chest area dry clean and intact. Wound VAC is in place. There are 2 CAMELIA drains which are draining some bloody serosanguineous material. Neurologically she is awake and alert. Speech is within normal. No focal neurological deficit. Cranial nerves are intact. Skeletal examination shows no arthritis or joint deformities. Results - Laboratory Findings CBC and BMP: 06/09/17 11:24 06/09/17 11:24 Abnormal lab findings: Abnormal Labs 06/08/17 06/09/17 06/09/17 15:06 05:48 06:10 RBC 3.02 L Hgb 9.2 L D Hct 28.2 L Sodium Carbon Dioxide BUN Glucose POC Glucose (mg/dL) 128 H 148 H Calcium Magnesium Total Protein Albumin 06/09/17 06/09/17 06/09/17 06:10 11:05 11:24 RBC 2.65 L Hgb 8.3 L Hct 25.8 L Sodium 134 L Carbon Dioxide BUN Glucose 170 H POC Glucose (mg/dL) 209 H Calcium Magnesium 1.5 L Total Protein 4.8 L Albumin 2.7 L 06/09/17 11:24 RBC Hgb Hct Sodium 133 L Carbon Dioxide 21 L BUN 18 H Glucose 197 H POC Glucose (mg/dL) Calcium 8.1 L Magnesium Total Protein 4.6 L Albumin 2.7 L - Diagnostic Findings CT scan - chest: image reviewed Assessment and Plan Plan: Assessment 1 presyncope, highly doubt any acute neurologic event or cardiovascular events. Probably related to hypotension/intravascular volume depletion with postoperative blood loss noted that hemoglobin has dropped down to 8.2. She is fully alert and awake without any focal neurological deficit and her CT angios the chest has been negative for now. 2 obesity with a previous gastric sleeve 3 obstructive sleep apnea 4 diabetes mellitus 5 distention 6 breast cancer with recent left mastectomy and lymph node dissection and the patient is postop day #1 7 postoperative anemia with a hemoglobin of 8.2 8 hyperlipidemia 9 anxiety/depression Plan We'll move the patient to the intensive care unit. We'll monitor the cardiac rhythm. We will watch for any cardiac arrhythmias. Monitor cardiac enzymes. Monitor blood pressure. The patient was given a bolus of IV fluids in the form of lactated Ringer, 1 L and then a maintenance for now. Monitor hemoglobin. Monitor output from the CAMELIA drains. We'll make further recommendations based on her progress. For now she will to the intensive care unit for further monitoring.
[2017-06-09 14:19] LABS: Glucose,Whole Blood 169 mg/dL (75-99)
[2017-06-09 16:03] LABS: Creatine Kinase 24 U/L (30-135)
[2017-06-09 16:11] LABS: Basophils % (A) 0 %; CH 31.5; Eosinophils # (A) 0.1 k/uL (0-0.7); Eosinophils % (A) 1 %; HCT 23.9 % (34.0-46.0); Luc # (Auto) 0.05; Luc % (Auto) 1; Lymphocytes # (A) 1.2 k/uL (1.0-4.8); Lymphocytes % (A) 17 %; MCH 31.1 pg (25.0-35.0); MCHC 33.4 g/dL (31.0-37.0); MCV 93.1 fL (80.0-100.0); Mean Platelet Volume 7.2; Monocytes # (A) 0.4 k/uL (0-1.0); Monocytes % (A) 5 %; Neutrophils # (A) 5.7 k/uL (1.3-7.7); Neutrophils % (A) 77 %; RBC 2.57 m/uL (3.80-5.40); RDW 14.2 % (11.5-15.5); WBC 7.4 k/uL (3.8-10.6); WBC (Perox) 7.51
[2017-06-09 16:16] LABS: Creatine Kinase MB 0.2 ng/mL (0.0-2.4); Troponin I <0.012 ng/mL (0.000-0.034)
[2017-06-09 20:26] LABS: Glucose,Whole Blood 164 mg/dL (75-99)
[2017-06-09] MEDS: INSULIN LISPRO (humaLOG) 300 UNIT/3 ML VIAL SQ SCH (20:27)
[2017-06-09 20:29] LABS: Hemoglobin A1C 5.8 % (4.2-6.1)
--- NOTE | 2017-06-09 20:30 | CT ---
EXAMINATION TYPE: CT brain wo con DATE OF EXAM: 06/09/2017 COMPARISON: NONE HISTORY: History of melanoma and breast cancer. Possible brain mets. CT DLP: 1021.90 mGycm Automated exposure control for dose reduction was used. FINDINGS: Ventricles and sulci appear normal. There is no mass effect nor midline shift. There is no sign of in tracranial hemorrhage. The calvarium is intact. IMPRESSION: NEGATIVE CT SCAN OF THE BRAIN.
--- NOTE | 2017-06-09 23:31 | EEG ---
ELECTROENCEPHALOGRAM REPORT DATE OF EE06/09/2017. REFERRING PHYSICIAN: Dr. Lubin. CONSULTING INTERPRETING PHYSICIAN: Dr. Devora Wilks. INDICATION FOR EXAMINATION: This patient is a 66-year-old female who was being monitored in the intensive care unit following recurrent episodes of syncope and obtundation early this morning. Patient postoperative day 1 following left breast mastectomy. AGE: 66. EEG FINDINGS: A routine 21-channel awake digital EEG recording was accomplished utilizing the 10-20 international system with bipolar and referential montages. The background activity in the most alert resting state consists of a low to medium amplitude, fairly well developed and well sustained 7-8 Hz activity over the posterior head regions. Muscle and movement artifact was observed on a few occasions during the tracing. Hyperventilation was not performed. Photic stimulation at flash frequencies of 2-30 Hz produced a minimal occipital driving response. Toward the mid and lateral portion of the tracing, the patient does dripped into spontaneous drowsiness. No epileptiform discharges were seen. IMPRESSION: This EEG is within normal limits for the patient's age. The EEG failed to reveal any focal, lateralized, or epileptiform abnormalities. Clinical correlation is recommended. MMODL / IJN: [id number] /
[2017-06-10] MEDS: HYDROcodone/APAP 5-325MG 1 EACH TAB PO PRN ×5 (00:02→17:12)
[2017-06-10 00:45] LABS: Creatine Kinase 30 U/L (30-135)
--- NOTE | 2017-06-10 00:49 | P.CNNES ---
History of Present Illness Consult date: 06/09/17 Reason for Consult: Patient with acute mental status changes and hypotension. History of Present Illness: This patient is a 66-year-old right-handed white female who was on the oncology floor recovering from recent modified left mastectomy. She was postoperative day one this morning. At about 6 AM this morning she was up walking to the bathroom when she suddenly became very lightheaded and disoriented. She felt very dizzy and the nursing staff had to assist her back to the bedside. Her blood pressure was checked at the time and was significantly low and the reading was noted to be only 80/47. She was complaining of some lightheadedness and shortness of breath. She was sent for a computed tomography scan of the chest which came back negative for any evidence of pulmonary embolus. It was felt she may have had too much pain medication that made her very lightheaded and disoriented. Apparently she was able to return to bed and at 9 AM she had another episode in which she felt lightheaded and nauseous. Her eyes rolled back into her head and she became slightly unresponsive. Her was at bedside when this second episode occurred. A few minutes later she had a third episode at which time a code stroke was initiated. Was unclear why the patient became unresponsive at that time. She was then stabilized and sent for a computed tomography scan of the brain. CAT scan of the brain was reported negative for any acute changes. She was then transferred into the intensive care unit for close monitoring. The patient has no previous history of syncope or collapse. She was recently diagnosed with breast cancer in December of this year. She had evidence of a intraductal carcinoma. This was noted to be HER-2 positive. The patient has undergone 6 cycles of chemotherapy. It was decided for her to undergo this mastectomy which was just completed. She has history of other surgical interventions last year but did not have any complications. As noted she was postoperative day one today. Her hemoglobin was noted to be slightly low. Her most recent hemoglobin in the ICU as come back at 8.0. Dr. Lubin is following the patient closely following her surgery. She is considering whether she may require reexploration tomorrow if her hemoglobin continues to drop. The patient is currently resting comfortably in the ICU. Her and daughter at bedside. She is doing much better and her blood pressure is much improved since coming into the ICU. She is not on any pressor agents. The patient denies any previous history of seizures. She was able to complete a routine EEG in the ICU today and this was reviewed. Her EEG is normal with no evidence of any epileptiform changes. We have discussed the results of the CAT scan of the brain and the EEG with the patient today in detail. She was pleased to know that both studies were normal. The patient is feeling much better now in the ICU. She is receiving fluids as well. As noted her blood pressure is now in the range of 120/70. She has had no further syncopal or near syncopal episodes in the ICU setting. Neurology is now been consulted for further evaluation and recommendations. Review of Systems Constitutional: Denies chills, Denies fever Eyes: denies blurred vision, denies pain Ears, nose, mouth and throat: Denies headache, Denies sore throat Cardiovascular: Denies chest pain, Denies shortness of breath Respiratory: Denies cough Gastrointestinal: Denies abdominal pain, Denies diarrhea, Denies nausea, Denies vomiting Genitourinary: Denies dysuria, Denies hematuria Musculoskeletal: Denies myalgias Integumentary: Denies pruritus, Denies rash Neurological: Reports confusion, Reports paresthesias, Reports syncope, Denies numbness, Denies weakness Psychiatric: Denies anxiety, Denies depression Endocrine: Denies fatigue, Denies weight change Past Medical History Past Medical History: Cancer, Diabetes Mellitus, Hyperlipidemia, Hypertension, Osteoarthritis (OA), Sleep Apnea/CPAP/BIPAP Additional Past Medical History / Comment(s): Obstructive sleep apnea, diabetes mellitus, history of obesity, varicose veins, skin cancer, breast cancer, hx gout, finished chemo 05/09/17, no longer problems with diabetes since gastric sleeve History of Any Multi-Drug Resistant Organisms: None Reported Past Surgical History: Bariatric Surgery, Breast Surgery, Section, Hernia Repair, Tonsillectomy, Tubal Ligation Additional Past Surgical History / Comment(s): sleeve gastrectomy 09/03/13, colonoscopy, EGD, left breast biopsy, left breast mastectomy 06/08/17 Past Anesthesia/Blood Transfusion Reactions: No Reported Reaction Past Psychological History: No Psychological Hx Reported Smoking Status: Never smoker Past Alcohol Use History: None Reported Past Drug Use History: None Reported - Past Family History Mother Family Medical History: Cancer (mother at age of 84 from lung cancer.) Additional Family Medical History / Comment(s): lung Father Family Medical History: Congestive Heart Failure (CHF) (father in his 70s from congestive heart failure.) Daughter(s) Family Medical History: Hypertension (patient has 2 daughters with hypertension. ) Brother(s) Family Medical History: Coronary Artery Disease (CAD) (patient has one brother who has CAD.) Sister(s) Family Medical History: Diabetes Mellitus (patient had one sister who from competition due to diabetes complications.) Medications and Allergies Home Medications Medication Instructions Recorded Confirmed Type Calcium Citrate/Vitamin D3 1 tab PO BID 02/18/14 06/09/17 History [Calcium Citrate - Vit D3 Tab] Escitalopram [Lexapro] 10 mg PO DAILY 02/18/14 06/09/17 History Vitamin E (Dl,Tocopheryl Acet) 400 unit PO BID 03/06/14 06/09/17 History [Vitamin E] Furosemide [Lasix] 10 mg PO DAILY PRN 08/28/14 06/09/17 History ALPRAZolam [Xanax] 0.25 mg PO Q6HR PRN 01/17/17 06/09/17 History Ascorbic Acid [Vitamin C] 500 mg PO DAILY 04/11/17 06/09/17 History Acetaminophen [Tylenol] 325 mg PO Q4H PRN 06/03/17 06/09/17 History Aspirin [Adult Low Dose Aspirin EC] 81 mg PO DAILY 06/03/17 06/09/17 History Cholecalciferol [Vitamin D3] 1,000 unit PO DAILY 06/03/17 06/09/17 History Ibuprofen [Motrin] 200 - 400 mg PO Q6HR PRN 06/03/17 06/09/17 History Multivitamins, Thera [Multivitamin 1 tab PO DAILY 06/03/17 06/09/17 History (formulary)] [place]-3 Fatty Acids/Fish Oil [Fish 1 cap PO DAILY 06/03/17 06/09/17 History Oil 1,000 mg Softgel] Docusate [Colace] 100 mg PO BID #30 capsule 06/08/17 Rx Hydrocodone/Acetaminophen [[place] 1 each PO Q6HR PRN #30 tab 06/08/17 Rx 5-325] Biotin 300 mcg PO DAILY 06/09/17 06/09/17 History Lisinopril [Zestril] 20 mg PO DAILY 06/09/17 06/09/17 History Allergies Allergy/AdvReac Type Severity Reaction Status Date / Time Sulfa (Sulfonamide Allergy Anaphylaxis Verified 06/08/17 10:15 Antibiotics) honey AdvReac Unknown Verified 06/08/17 10:15 Physical Examination - Vital Signs Vital Signs: Vital Signs Temp Pulse Pulse Resp BP BP Pulse Ox 06/09/17 14:15 98.4 F 72 15 110/62 98 06/09/17 11:07 80 109/54 94 L 06/09/17 09:15 88 112/54 06/09/17 08:16 97 06/09/17 08:15 79 123/51 06/09/17 07:53 97.8 F 84 18 87/47 98 06/09/17 07:14 16 87/47 95 06/09/17 06:55 76 91/52 97 06/09/17 06:23 71 96/57 06/09/17 06:19 67 100/60 06/09/17 06:05 71 116/68 06/09/17 06:00 69 114/67 06/09/17 05:59 79 107/62 06/09/17 05:58 92 119/60 06/09/17 05:56 81 138/63 06/09/17 05:55 85 81/57 06/08/17 23:48 79 134/93 99 06/08/17 23:00 97.5 F L 92 18 169/81 99 06/08/17 18:17 78 16 155/83 97 06/08/17 17:25 83 16 166/68 95 06/08/17 16:31 98 F 96 16 193/95 100 06/08/17 16:00 87 16 154/75 94 L 06/08/17 15:55 98 16 158/82 93 L 06/08/17 15:40 84 16 152/83 100 06/08/17 15:30 80 16 179/82 100 06/08/17 15:00 87 16 169/90 100 06/08/17 14:55 97.8 F 87 16 174/84 100 Intake and Output 06/08/17 06/09/17 06/09/17 22:59 06:59 14:59 Intake Total 300 1649 Output Total 60 55 Balance 240 -55 1649 Intake: IV 300 Lactated Ringers 1,000 ml 300 @ 75 mls/hr IV .[id number] KEYLA Rx#:[id number] Intake, IV Titration 1649 Amount Magnesium Sulfate-D5w Pmx 100 1 gm In Dextrose/Water 1 100ml.bag @ 100 mls/hr IVPB Q1H [facility] Rx#: [id number] Sodium Chloride 0.9% 1, 550 000 ml @ 125 mls/hr IV . Q8H KEYLA Rx#:[id number] Sodium Chloride 0.9% 1, 999 000 ml @ 999 mls/hr IV . Q1H1M ONE Rx#:[id number] Output: Drainage 40 55 Left Breast 20 Left Chest 20 camelia#1 25 camelia#2 30 Estimated Blood Loss 20 Other: Voiding Method Toilet Toilet Bedside Commode # Voids 1 Weight 84.368 kg - Constitutional General appearance: average body habitus, cooperative - EENT EENT: PERRL, mucous membranes moist - Respiratory Respiratory: lungs clear, normal breath sounds - Cardiovascular Cardiovascular: regular rate, normal S1, normal S2 Extremities: no peripheral edema bilaterally - Gastrointestinal Gastrointestinal: normoactive bowel sounds - Integumentary Integumentary: normal - Neurologic Cranial nerve examination: PERRL, EOMI, VFF, V1/V2/V3 grossly intact, face symmetric, tongue midline, intact gag reflex, intact corneal reflex, normal palatal elevation Speech examination: intact Sensorimotor examination: intact Detailed motor examination: grossly full strength in all extremities Motor examination - right side: 4/5: biceps, triceps, wrist flexion, wrist extension, safety intern, hip flexors, knee extensors, dorsiflexion, toe extension (EHL) , plantarflexion Motor examination - left side: 4/5: biceps, triceps, wrist flexion, wrist extension, safety intern, hip flexors, knee extensors, dorsiflexion, toe extension (EHL) , plantarflexion Detailed sensory examination: intact Reflex and gait examination: intact Reflexes: 1+: ankle, bicep, knee, tricep - Musculoskeletal Musculoskeletal: no pain - Psychiatric Psychiatric: mood/affect appropriate, cooperative Results - Laboratory Findings CBC and BMP: 06/09/17 15:40 06/09/17 11:24 Abnormal Lab Findings: Abnormal Labs 06/08/17 06/09/17 06/09/17 15:06 05:48 06:10 RBC 3.02 L Hgb 9.2 L D Hct 28.2 L Sodium Carbon Dioxide BUN Glucose POC Glucose (mg/dL) 128 H 148 H Calcium Magnesium Total Protein Albumin 06/09/17 06/09/17 06/09/17 06:10 11:05 11:24 RBC 2.65 L Hgb 8.3 L Hct 25.8 L Sodium 134 L Carbon Dioxide BUN Glucose 170 H POC Glucose (mg/dL) 209 H Calcium Magnesium 1.5 L Total Protein 4.8 L Albumin 2.7 L 06/09/17 06/09/17 11:24 14:16 RBC Hgb Hct Sodium 133 L Carbon Dioxide 21 L BUN 18 H Glucose 197 H POC Glucose (mg/dL) 169 H Calcium 8.1 L Magnesium Total Protein 4.6 L Albumin 2.7 L Assessment and Plan (1) Acute encephalopathy Status: Acute Code(s): G93.40 - ENCEPHALOPATHY, UNSPECIFIED (2) Near syncope Status: Acute Code(s): R55 - SYNCOPE AND COLLAPSE (3) History of breast cancer Status: Acute Code(s): Z85.3 - PERSONAL HISTORY OF MALIGNANT NEOPLASM OF BREAST (4) H/O total mastectomy of left breast Status: Acute Code(s): Z90.12 - ACQUIRED ABSENCE OF LEFT BREAST AND NIPPLE Plan: This patient is a 66-year-old right-handed white female who underwent a modified left mastectomy with lymph node dissection yesterday by Dr. Lubin. Patient was postoperative day one this morning at about 6 AM on the oncology floor when she suddenly developed episode of lightheadedness and lethargy. She became very lightheaded and had a near syncopal episode. Apparently her eyes rolled back and she felt very weak and nearly collapsed. She had 2 further episodes at 9 AM very similar to the first. She was sent for a CTA angiogram of the lungs which came back negative for pulmonary embolus. She then went for a computed tomography scan of the brain which was negative for any acute changes. She was then transferred to the intensive care unit for close monitoring. The patient was noted to have evidence of severe hypotension prior to coming into the ICU. She was given fluids and is now doing much better. Patient's computed tomography scan of the brain was reviewed and is negative for any acute changes. She underwent routine EEG today which is reviewed and is normal for her age. There is no evidence of any epileptiform discharges. This patient likely suffered a near syncopal episode secondary to hypotension and intravascular volume depletion. She is being closely monitored for blood loss anemia as well. Her hemoglobin today in the ICU was 8.0. She is being followed closely by his surgery and Dr. Lubin was going to reevaluate her tomorrow morning and reassess her total hemoglobin count. The patient neurologically remains very much intact in the ICU. She is following all commands. She has no focal deficit on examination. We are recommending close monitoring of the patient for the next 24 hours in the ICU setting. We have reviewed the results of her CAT scan of the brain and EEG today with the patient and her . All of these findings were discussed in detail. We will continue close neurological follow-up for this patient in the ICU. Her overall prognosis at this time remains guarded. Time with Patient: Greater than 30
[2017-06-10 00:57] LABS: Creatine Kinase MB <0.2 ng/mL (0.0-2.4); Troponin I <0.012 ng/mL (0.000-0.034)
[2017-06-10] MEDS: SODIUM CHLORIDE 0.9% 1,000 ML IV SCH ×4 (04:29→22:19)
[2017-06-10 04:46] LABS: CH 31.8; HDW 3.08; HGB 7.4 gm/dL (11.4-16.0); MCH 30.3 pg (25.0-35.0); MCHC 32.1 g/dL (31.0-37.0); MCV 94.3 fL (80.0-100.0); Mean Platelet Volume 7.3; RBC 2.44 m/uL (3.80-5.40); RDW 14.2 % (11.5-15.5); WBC 6.4 k/uL (3.8-10.6)
[2017-06-10 05:01] LABS: ALT 30 U/L (9-52); AST 16 U/L (14-36); Alkaline Phosphatase 46 U/L (38-126); Anion Gap 5 mmol/L; Blood Urea Nitrogen 15 mg/dL (7-17); Calcium 8.1 mg/dL (8.4-10.2); Carbon Dioxide 24 mmol/L (22-30); Chloride 110 mmol/L (98-107); Glucose 96 mg/dL (74-99); Non-African American GFR(MDRD) >60 (>60 ml/min/1.73 sqM); Potassium 4.7 mmol/L (3.5-5.1); Sodium 139 mmol/L (137-145); Total Bilirubin 0.2 mg/dL (0.2-1.3); Total Protein 4.5 g/dL (6.3-8.2)
[2017-06-10] MEDS: CALCIUM CARB-VIT D 500MG-200UN 1 EACH TAB PO SCH ×2 (08:00→17:59)
--- NOTE | 2017-06-10 08:06 | P.PN ---
Subjective Progress Note Date: 06/10/17 Principal diagnosis: Left breast cancer S/P left MRM for left breast cancer. Patient had SOB and dizziness. No falls. No tachycardia or hypotension. Pain in left axilla. Hb drop from 11 as outpatient to 9 on post op #1 and 7.4 on post op #2 . CAMELIA drains have sanguinous output. She had work up including CTA negative for PE, neurology consult and EEG Objective - Vital Signs Vital signs: Vital Signs Temp 98.7 F 06/10/17 07:34 Pulse 89 06/10/17 07:34 Resp 16 06/10/17 07:34 BP 152/72 06/10/17 06:50 Pulse Ox 96 06/10/17 07:34 Intake & Output 06/09/17 06/10/17 06/10/17 18:59 06:59 18:59 Intake Total 2399 1712 0 Output Total 630 2110 Balance 1769 -398 0 Weight 95.1 kg Intake: IV 500 1475 Sodium Chloride 0.9% 1, 500 1475 000 ml @ 125 mls/hr IV . Q8H [facility] Rx#:[id number] Intake, IV Titration 1649 Amount Magnesium Sulfate-D5w Pmx 100 1 gm In Dextrose/Water 1 100ml.bag @ 100 mls/hr IVPB Q1H [facility] Rx#: [id number] Sodium Chloride 0.9% 1, 550 000 ml @ 125 mls/hr IV . Q8H [facility] Rx#:[id number] Sodium Chloride 0.9% 1, 999 000 ml @ 999 mls/hr IV . Q1H1M ONE Rx#:[id number] Oral 250 237 Blood Product 0 Rc As-1 Unit 0 [id number] Output: Drainage 30 10 Left Chest 0 camelia#1 20 10 camelia#2 10 0 Urine 600 2100 Other: Voiding Method Bedside Commode Bedside Commode # Voids 1 - Exam Patient alert and awake. Not inacute distress Breast flaps - viable. Fullness in left axilla - Labs CBC & Chem 7: 06/10/17 04:27 06/10/17 04:27 Labs: Abnormal Lab Results - Last 24 Hours (Table) 06/09/17 06/09/17 06/09/17 Range/Units 11:05 11:24 11:24 RBC 2.65 L (3.80-5.40) m/uL Hgb 8.3 L (11.4-16.0) gm/dL Hct 25.8 L (34.0-46.0) % Sodium 133 L (137-145) mmol/L Chloride (98-107) mmol/L Carbon Dioxide 21 L (22-30) mmol/L BUN 18 H (7-17) mg/dL Glucose 197 H (74-99) mg/dL POC Glucose (mg/dL) 209 H (75-99) mg/dL Calcium 8.1 L (8.4-10.2) mg/dL Total Creatine Kinase (30-135) U/L Total Protein 4.6 L (6.3-8.2) g/dL Albumin 2.7 L (3.5-5.0) g/dL Crossmatch 06/09/17 06/09/17 06/09/17 Range/Units 14:16 15:40 15:40 RBC 2.57 L (3.80-5.40) m/uL Hgb 8.0 L (11.4-16.0) gm/dL Hct 23.9 L (34.0-46.0) % Sodium (137-145) mmol/L Chloride (98-107) mmol/L Carbon Dioxide (22-30) mmol/L BUN (7-17) mg/dL Glucose (74-99) mg/dL POC Glucose (mg/dL) 169 H (75-99) mg/dL Calcium (8.4-10.2) mg/dL Total Creatine Kinase 24 L (30-135) U/L Total Protein (6.3-8.2) g/dL Albumin (3.5-5.0) g/dL Crossmatch 06/09/17 06/09/17 06/10/17 Range/Units 16:02 20:25 04:27 RBC 2.44 L (3.80-5.40) m/uL Hgb 7.4 L (11.4-16.0) gm/dL Hct 23.0 L (34.0-46.0) % Sodium (137-145) mmol/L Chloride (98-107) mmol/L Carbon Dioxide (22-30) mmol/L BUN (7-17) mg/dL Glucose (74-99) mg/dL POC Glucose (mg/dL) 164 H (75-99) mg/dL Calcium (8.4-10.2) mg/dL Total Creatine Kinase (30-135) U/L Total Protein (6.3-8.2) g/dL Albumin (3.5-5.0) g/dL Crossmatch See Detail 06/10/17 Range/Units 04:27 RBC (3.80-5.40) m/uL Hgb (11.4-16.0) gm/dL Hct (34.0-46.0) % Sodium (137-145) mmol/L Chloride 110 H (98-107) mmol/L Carbon Dioxide (22-30) mmol/L BUN (7-17) mg/dL Glucose (74-99) mg/dL POC Glucose (mg/dL) (75-99) mg/dL Calcium 8.1 L (8.4-10.2) mg/dL Total Creatine Kinase (30-135) U/L Total Protein 4.5 L (6.3-8.2) g/dL Albumin 2.5 L (3.5-5.0) g/dL Crossmatch Assessment and Plan (1) H/O total mastectomy of left breast Status: Acute (2) History of breast cancer Status: Acute Plan: 1. Discussed with patient and family 2. Symptomatic acute blood loss anemia. Transfuse 1 unit of PRBC. 2Units PRBC on hold 3. To OR for evacuation of left chest hematoma and washout.
[2017-06-10 08:09] LABS: Glucose,Whole Blood 114 mg/dL (75-99)
[2017-06-10] MEDS: INSULIN LISPRO (humaLOG) 300 UNIT/3 ML VIAL SQ SCH ×4 (08:11→20:29)
[2017-06-10] MEDS: HEPARIN SODIUM,PORCINE 5,000 UNIT/ML 1 ML VIAL SQ SCH (08:11)
[2017-06-10] MEDS ORDERED: PHENYLEPHRINE-0.9% NACL SYG 1 MG/10 ML SYRINGE ONE (09:27)
[2017-06-10] MEDS ORDERED: SUCCINYLCHOLINE CHLORIDE 100 MG/5 ML SYR IV ONE (09:27)
[2017-06-10] MEDS ORDERED: IV FLUID CONTINUATION 500 ML IV ONE (09:27)
[2017-06-10] MEDS ORDERED: fentaNYL (PF) 50 MCG/ML 2 ML AMP ONE (09:27)
[2017-06-10] MEDS ORDERED: PROPOFOL 10 MG/ML 20 ML VIAL IV ONE (09:27)
--- NOTE | 2017-06-10 09:31 | P.PN ---
<Ambika Hardy - Last Filed: 06/10/17 08:59> Subjective Progress Note Date: 06/10/17 Principal diagnosis: A 66-year-old female patient who underwent a left mastectomy. The patient is postop day #1. The patient is also known to me regarding her atelectasis history of obstructive sleep apnea. She was morbidly obese and she has undergone gastric sleeve surgery with successful weight loss. She also has issues with diabetes mellitus and more recently she was diagnosed having breast cancer and she has completed chemotherapy on 05/09/2017 and she was admitted for a left mastectomy and lymph node dissection. Surgery was done without any complications. The patient was on a medical floor when she was trying to get out to the bathroom and she felt dizzy and she had an episode of presyncope. During that time she dropped her blood pressure down to the mid 80s. She was placed back in bed. A CT angios the chest was done that showed no acute abnormalities and there was no evidence of PE or pneumonia. She had another episode where she was laying down in bed and she felt nauseous and sweaty and she had a another episode of presyncope without any tonic body postures or any jerking body movements in upper and lower extremities. Currently she is doing well. CAT scan of the brain will be done. No speech deficits pH is fully alert and awake. She is following commands. She is answering questions. No focal neurological deficit. No vision changes. No speech changes. She is hemodynamically stable. Blood sugar during these episodes showed a level of above 200. No cardiac arrhythmias have been noted. Cardiac rhythm is sinus. EKG and cardiac enzymes are to follow. The patient is seen again today 06/10/2017 in follow-up in the intensive care unit. She is awake and alert and oriented 3, in no acute distress. She did not have any further episodes of syncope throughout the evening. She has remained hemodynamically stable. No pressors required. Afebrile. Maintaining good O2 saturations in the 90s on room air. CT of the brain was negative for abnormality. EEG was normal. Troponins were negative. Her hemoglobin this morning is 7.4. She is receiving 1 unit of packed red blood cells. 2 more units are available. She has been seen and evaluated by Dr. Lubin who was planning to take the patient back to the operating room today for left chest wall hematoma evacuation and washout. Wound VAC remains in place. CAMELIA drains [address] with minimal sanguineous drainage. Objective - Vital Signs Vital signs: Vital Signs Temp 98.5 F 06/10/17 08:14 Pulse 81 06/10/17 08:14 Resp 14 06/10/17 08:14 BP 138/65 06/10/17 08:14 Pulse Ox 96 06/10/17 08:14 Intake & Output 06/09/17 06/10/17 06/10/17 18:59 06:59 18:59 Intake Total 2399 1712 100 Output Total 630 2110 570 Balance 3330 -519 -565 Weight 95.1 kg Intake: IV 500 1475 0 Sodium Chloride 0.9% 1, 500 1475 0 000 ml @ 125 mls/hr IV . Q8H [facility] Rx#:[id number] Intake, IV Titration 1649 Amount Magnesium Sulfate-D5w Pmx 100 1 gm In Dextrose/Water 1 100ml.bag @ 100 mls/hr IVPB Q1H [facility] Rx#: [id number] Sodium Chloride 0.9% 1, 550 000 ml @ 125 mls/hr IV . Q8H [facility] Rx#:[id number] Sodium Chloride 0.9% 1, 999 000 ml @ 999 mls/hr IV . Q1H1M [facility] Rx#:[id number] Oral 250 237 Blood Product 100 Rc As-1 Unit 0 [id number] Output: Drainage 30 10 20 Left Chest 0 camelia#1 20 10 15 camelia#2 10 0 5 Urine 600 2100 550 Other: Voiding Method Bedside Commode Bedside Commode # Voids 1 - Exam Gen. appearance the patient is calm and comfortable. The patient not having any respiratory difficulties. She is alert and awake. She is asked to questions appropriately. Head exam was generally normal. There was no scleral icterus or corneal arcus. Mucous membranes were moist.Neck was supple and without jugular venous distension, thyromegaly, or carotid bruits. Carotids were easily palpable bilaterally. There was no adenopathy.Lungs were clear to auscultation and percussion, and with normal diaphragmatic excursion. No wheezes or rales were noted. Cardiac exam revealed the PMI to be normally situated and sized. The rhythm was regular and no extrasystoles were noted during several minutes of auscultation. The first and second heart sounds were normal and physiologic splitting of the second heart sound was noted. There were no murmurs, rubs, clicks, or gallops.Abdominal exam revealed normal bowel sounds. The abdomen was soft, non-tender, and without masses, organomegaly, or appreciable enlargement of the abdominal aorta.Examination of the extremities revealed easily palpable radial, femoral and pedal pulses. There was no cyanosis , clubbing or edema. The surgical wound site over the left anterior chest area dry clean and intact. Wound VAC is in place. There are 2 CAMELIA drains which are draining some bloody serosanguineous material. Neurologically she is awake and alert. Speech is within normal. No focal neurological deficit. Cranial nerves are intact. Skeletal examination shows no arthritis or joint deformities. - Labs CBC & Chem 7: 06/10/17 04:27 06/10/17 04:27 Labs: Abnormal Lab Results - Last 24 Hours (Table) 06/09/17 06/09/17 06/09/17 Range/Units 11:05 11:24 11:24 RBC 2.65 L (3.80-5.40) m/uL Hgb 8.3 L (11.4-16.0) gm/dL Hct 25.8 L (34.0-46.0) % Sodium 133 L (137-145) mmol/L Chloride (98-107) mmol/L Carbon Dioxide 21 L (22-30) mmol/L BUN 18 H (7-17) mg/dL Glucose 197 H (74-99) mg/dL POC Glucose (mg/dL) 209 H (75-99) mg/dL Calcium 8.1 L (8.4-10.2) mg/dL Total Creatine Kinase (30-135) U/L Total Protein 4.6 L (6.3-8.2) g/dL Albumin 2.7 L (3.5-5.0) g/dL Crossmatch 06/09/17 06/09/17 06/09/17 Range/Units 14:16 15:40 15:40 RBC 2.57 L (3.80-5.40) m/uL Hgb 8.0 L (11.4-16.0) gm/dL Hct 23.9 L (34.0-46.0) % Sodium (137-145) mmol/L Chloride (98-107) mmol/L Carbon Dioxide (22-30) mmol/L BUN (7-17) mg/dL Glucose (74-99) mg/dL POC Glucose (mg/dL) 169 H (75-99) mg/dL Calcium (8.4-10.2) mg/dL Total Creatine Kinase 24 L (30-135) U/L Total Protein (6.3-8.2) g/dL Albumin (3.5-5.0) g/dL Crossmatch 06/09/17 06/09/17 06/10/17 Range/Units 16:02 20:25 04:27 RBC 2.44 L (3.80-5.40) m/uL Hgb 7.4 L (11.4-16.0) gm/dL Hct 23.0 L (34.0-46.0) % Sodium (137-145) mmol/L Chloride (98-107) mmol/L Carbon Dioxide (22-30) mmol/L BUN (7-17) mg/dL Glucose (74-99) mg/dL POC Glucose (mg/dL) 164 H (75-99) mg/dL Calcium (8.4-10.2) mg/dL Total Creatine Kinase (30-135) U/L Total Protein (6.3-8.2) g/dL Albumin (3.5-5.0) g/dL Crossmatch See Detail 06/10/17 06/10/17 Range/Units 04:27 08:08 RBC (3.80-5.40) m/uL Hgb (11.4-16.0) gm/dL Hct (34.0-46.0) % Sodium (137-145) mmol/L Chloride 110 H (98-107) mmol/L Carbon Dioxide (22-30) mmol/L BUN (7-17) mg/dL Glucose (74-99) mg/dL POC Glucose (mg/dL) 114 H (75-99) mg/dL Calcium 8.1 L (8.4-10.2) mg/dL Total Creatine Kinase (30-135) U/L Total Protein 4.5 L (6.3-8.2) g/dL Albumin 2.5 L (3.5-5.0) g/dL Crossmatch Assessment and Plan Plan: Assessment 1 presyncope, highly doubt any acute neurologic event or cardiovascular events. She is fully alert and awake without any focal neurological deficit and her CT angios the chest has been negative for now. Probably related to hypotension/ intravascular volume depletion with postoperative blood loss noted that hemoglobin has dropped down to 8.2. On 06/10/2017 she is seen again today in follow-up in the intensive care unit. She's not had any further syncopal episodes. She is awake and alert in no acute distress. Computed tomography scan of the brain was negative. EEG was negative. Her hemoglobin did drop to 7.4. She is receiving 1 unit of packed red blood cells with 2 units available. The plan is to return to the operating room for evacuation of left chest hematoma and washout today. 2 obesity with a previous gastric sleeve 3 obstructive sleep apnea 4 diabetes mellitus 5 distention 6 breast cancer with recent left mastectomy and lymph node dissection and the patient is postop day #2 7 postoperative anemia with a hemoglobin of 8.2, currently 7.4. She is receiving 1 unit of packed red blood cells. 8 hyperlipidemia 9 anxiety/depression Plan The patient was seen and evaluated by Dr. Alexandre. She is currently stable from the pulmonary and critical care standpoint. She did not require any pressors. She is receiving 1 unit of packed red blood cells today. The plan is to return to the OR for hematoma evacuation and washout. Wound VAC in CAMELIA drains remain in place. We will continue to follow her in the postoperative period. I performed a history and physical examination on this patient. Her lung sounds are clear. Maintaining good O2 saturations in the mid 90s on room air. No pulmonary complaints. I reviewed and discussed the assessment and plan of care with my nurse practitioner Ambika Hardy. I agree with the above note as dictated by her. <Dionna Alexandre - Last Filed: 06/10/17 09:58> Objective - Vital Signs Vital signs: Vital Signs Temp 98.5 F 06/10/17 08:14 Pulse 82 06/10/17 09:00 Resp 17 06/10/17 09:00 BP 133/63 06/10/17 09:00 Pulse Ox 98 06/10/17 09:00 Intake & Output 06/09/17 06/10/17 06/10/17 18:59 06:59 18:59 Intake Total 2399 1712 200 Output Total 967 2110 570 Balance 1769 -398 -370 Weight 95.1 kg Intake: IV 500 1475 0 Sodium Chloride 0.9% 1, 500 1475 0 000 ml @ 125 mls/hr IV . Q8H [facility] Rx#:[id number] Intake, IV Titration 1649 Amount Magnesium Sulfate-D5w Pmx 100 1 gm In Dextrose/Water 1 100ml.bag @ 100 mls/hr IVPB Q1H [facility] Rx#: [id number] Sodium Chloride 0.9% 1, 550 000 ml @ 125 mls/hr IV . Q8H [facility] Rx#:[id number] Sodium Chloride 0.9% 1, 999 000 ml @ 999 mls/hr IV . Q1H1M [facility] Rx#:[id number] Oral 250 237 Blood Product 200 Rc As-1 Unit 0 [id number] Output: Drainage 30 10 20 Left Chest 0 camelia#1 20 10 15 camelia#2 10 0 5 Urine 600 2100 550 Other: Voiding Method Bedside Commode Bedside Commode # Voids 1 - Labs CBC & Chem 7: 06/10/17 04:27 06/10/17 04:27 Labs: Abnormal Lab Results - Last 24 Hours (Table) 06/09/17 06/09/17 06/09/17 Range/Units 11:05 11:24 11:24 RBC 2.65 L (3.80-5.40) m/uL Hgb 8.3 L (11.4-16.0) gm/dL Hct 25.8 L (34.0-46.0) % Sodium 133 L (137-145) mmol/L Chloride (98-107) mmol/L Carbon Dioxide 21 L (22-30) mmol/L BUN 18 H (7-17) mg/dL Glucose 197 H (74-99) mg/dL POC Glucose (mg/dL) 209 H (75-99) mg/dL Calcium 8.1 L (8.4-10.2) mg/dL Total Creatine Kinase (30-135) U/L Total Protein 4.6 L (6.3-8.2) g/dL Albumin 2.7 L (3.5-5.0) g/dL Crossmatch 06/09/17 06/09/17 06/09/17 Range/Units 14:16 15:40 15:40 RBC 2.57 L (3.80-5.40) m/uL Hgb 8.0 L (11.4-16.0) gm/dL Hct 23.9 L (34.0-46.0) % Sodium (137-145) mmol/L Chloride (98-107) mmol/L Carbon Dioxide (22-30) mmol/L BUN (7-17) mg/dL Glucose (74-99) mg/dL POC Glucose (mg/dL) 169 H (75-99) mg/dL Calcium (8.4-10.2) mg/dL Total Creatine Kinase 24 L (30-135) U/L Total Protein (6.3-8.2) g/dL Albumin (3.5-5.0) g/dL Crossmatch 06/09/17 06/09/17 06/10/17 Range/Units 16:02 20:25 04:27 RBC 2.44 L (3.80-5.40) m/uL Hgb 7.4 L (11.4-16.0) gm/dL Hct 23.0 L (34.0-46.0) % Sodium (137-145) mmol/L Chloride (98-107) mmol/L Carbon Dioxide (22-30) mmol/L BUN (7-17) mg/dL Glucose (74-99) mg/dL POC Glucose (mg/dL) 164 H (75-99) mg/dL Calcium (8.4-10.2) mg/dL Total Creatine Kinase (30-135) U/L Total Protein (6.3-8.2) g/dL Albumin (3.5-5.0) g/dL Crossmatch See Detail 06/10/17 06/10/17 Range/Units 04:27 08:08 RBC (3.80-5.40) m/uL Hgb (11.4-16.0) gm/dL Hct (34.0-46.0) % Sodium (137-145) mmol/L Chloride 110 H (98-107) mmol/L Carbon Dioxide (22-30) mmol/L BUN (7-17) mg/dL Glucose (74-99) mg/dL POC Glucose (mg/dL) 114 H (75-99) mg/dL Calcium 8.1 L (8.4-10.2) mg/dL Total Creatine Kinase (30-135) U/L Total Protein 4.5 L (6.3-8.2) g/dL Albumin 2.5 L (3.5-5.0) g/dL Crossmatch Assessment and Plan Plan: This is a joint evaluation that was done along with an expectation her. I do attested information mentioned above. The patient had drop in hemoglobin down to 7.4 and she is currently receiving a unit of packed RBC. I discussed the case with the general surgeon. The bleeding source is the surgical wound site over the left breast. The CAMELIA drains have not been actively draining this morning. Nevertheless, based on her ongoing drop in hemoglobin the patient will be taken to the operating room for a reexploration. The patient will be moved back to the ICU after her surgery. She is awake and alert and she is hemodynamically stable at this point. We'll continue to follow.
[2017-06-10] MEDS ORDERED: SODIUM CHLORIDE 0.9% 500 ML IV ONE (11:32)
[2017-06-10] MEDS: VITAMIN E (DL,TOCOPHERYL ACET) 400 UNIT CAP PO SCH ×2 (11:37→20:30)
[2017-06-10] MEDS: HYDROmorphone 1 MG/ML 1 ML SYRINGE IVP PRN (11:58)
[2017-06-10] MEDS: PANTOPRAZOLE 40 MG/10 ML VIAL IVP SCH (12:03)
--- NOTE | 2017-06-10 12:09 | P.PN ---
Subjective Progress Note Date: 06/10/17 This is a 66-year-old female patient of [facility] with past medical history of diabetes mellitus type 2, obstructive sleep apnea, morbid obesity status post gastric sleeve, gout, hypertension, recently diagnosed breast cancer and completed chemotherapy on 05/09/2017 and is now admitted to hospital under Dr. Lubin status post modified left mastectomy with the lymph node dissection, patient was admitted to the hospital under general surgery care and were asked to see the patient for medical management. Patient was sitting up in bed in the morning earlier at around 6:00 in the morning she sat at the edge of the bed and stood up for 1 minute and she started to walk around and felt suddenly she felt extremely weak hypertensive and elevated to the chair patient was sent down for a stat computed tomography scan of the chest that was negative for primary was some, patient was given a liter of lactated Ringer's and subsequently she was put on normal saline at her cc an hour her blood pressure is 112/70 she will be off her hypertension medicine for the next 24 hours, she will be kept in the hospital for another 24 hours for further evaluation. 06/10: Yesterday, patient was moved into intensive care unit as her blood pressure dropped to the mid 80s when she was trying to get out of the bathroom and was feeling dizzy and presyncopal. New consults were added for Dr. Alexandre and Dr. Wilks. She is undergone an EEG which was within normal limits. CAT scan of the brain was negative. She had further drop in her hemoglobin down to 7.4 and she has been ordered for 1 unit of packed RBCs. She also underwent a CTA of the chest that was negative for pulmonary embolism. Patient did have drainage from the CAMELIA drain yesterday of 6 Elina's fluid but this has decreased today. Patient was taken back to the OR for left chest wall hematoma evacuation washout. The VAC was placed. Patient now has 2 CAMELIA drains. Objective - Vital Signs Vital signs: Vital Signs Temp 98.5 F 06/10/17 08:14 Pulse 81 06/10/17 08:14 Resp 14 06/10/17 08:14 BP 138/65 06/10/17 08:14 Pulse Ox 96 06/10/17 08:14 Intake & Output 06/09/17 06/10/17 06/10/17 18:59 06:59 18:59 Intake Total 2399 1712 100 Output Total 630 2110 570 Balance 1769 398 -470 Weight 95.1 kg Intake: IV 500 1475 0 Sodium Chloride 0.9% 1, 500 1475 0 000 ml @ 125 mls/hr IV . Q8H [facility] Rx#:[id number] Intake, IV Titration 1649 Amount Magnesium Sulfate-D5w Pmx 100 1 gm In Dextrose/Water 1 100ml.bag @ 100 mls/hr IVPB Q1H [facility] Rx#: [id number] Sodium Chloride 0.9% 1, 550 000 ml @ 125 mls/hr IV . Q8H [facility] Rx#:[id number] Sodium Chloride 0.9% 1, 999 000 ml @ 999 mls/hr IV . Q1H1M [facility] Rx#:[id number] Oral 250 237 Blood Product 100 Rc As-1 Unit 0 [id number] Output: Drainage 30 10 20 Left Chest 0 camelia#1 20 10 15 camelia#2 10 0 5 Urine 600 2100 550 Other: Voiding Method Bedside Commode Bedside Commode # Voids 1 - Exam General appearance: average body habitus, no acute distress - EENT Eyes: anicteric sclerae, EOMI, PERRLA, no ptosis, no scleral icterus, normal appearance ENT: hearing grossly normal, NA/AT, normal oropharynx, no thrush Ears: bilateral: normal - Neck Neck: no lymphadenopathy, normal ROM, no rigidity, no stridor, no thyromegaly Carotids: bilateral: upstroke normal Thyroid: bilateral: normal size - Respiratory Respiratory: bilateral: diminished, negative: dullness, rales, rhonchi, wheezing , prolonged expiration, prolonged inspiration - Cardiovascular Rhythm: regular Heart sounds: normal: S1, S2 Abnormal Heart Sounds: no S3 Gallop, no S4 Gallop, no click - Gastrointestinal General gastrointestinal: soft, no splenomegaly, no tenderness, no umbilical hernia, no ventral hernia - Integumentary Integumentary: normal, normal turgor - Neurologic Neurologic: CNII-XII intact - Musculoskeletal Musculoskeletal: generalized weakness, strength equal bilaterally - Psychiatric Psychiatric: A&O x's 3, appropriate affect, intact judgment & insight - Labs CBC & Chem 7: 06/10/17 04:27 06/10/17 04:27 Labs: Abnormal Lab Results - Last 24 Hours (Table) 06/09/17 06/09/17 06/09/17 Range/Units 11:05 11:24 11:24 RBC 2.65 L (3.80-5.40) m/uL Hgb 8.3 L (11.4-16.0) gm/dL Hct 25.8 L (34.0-46.0) % Sodium 133 L (137-145) mmol/L Chloride (98-107) mmol/L Carbon Dioxide 21 L (22-30) mmol/L BUN 18 H (7-17) mg/dL Glucose 197 H (74-99) mg/dL POC Glucose (mg/dL) 209 H (75-99) mg/dL Calcium 8.1 L (8.4-10.2) mg/dL Total Creatine Kinase (30-135) U/L Total Protein 4.6 L (6.3-8.2) g/dL Albumin 2.7 L (3.5-5.0) g/dL Crossmatch 06/09/17 06/09/17 06/09/17 Range/Units 14:16 15:40 15:40 RBC 2.57 L (3.80-5.40) m/uL Hgb 8.0 L (11.4-16.0) gm/dL Hct 23.9 L (34.0-46.0) % Sodium (137-145) mmol/L Chloride (98-107) mmol/L Carbon Dioxide (22-30) mmol/L BUN (7-17) mg/dL Glucose (74-99) mg/dL POC Glucose (mg/dL) 169 H (75-99) mg/dL Calcium (8.4-10.2) mg/dL Total Creatine Kinase 24 L (30-135) U/L Total Protein (6.3-8.2) g/dL Albumin (3.5-5.0) g/dL Crossmatch 06/09/17 06/09/17 06/10/17 Range/Units 16:02 20:25 04:27 RBC 2.44 L (3.80-5.40) m/uL Hgb 7.4 L (11.4-16.0) gm/dL Hct 23.0 L (34.0-46.0) % Sodium (137-145) mmol/L Chloride (98-107) mmol/L Carbon Dioxide (22-30) mmol/L BUN (7-17) mg/dL Glucose (74-99) mg/dL POC Glucose (mg/dL) 164 H (75-99) mg/dL Calcium (8.4-10.2) mg/dL Total Creatine Kinase (30-135) U/L Total Protein (6.3-8.2) g/dL Albumin (3.5-5.0) g/dL Crossmatch See Detail 06/10/17 06/10/17 Range/Units 04:27 08:08 RBC (3.80-5.40) m/uL Hgb (11.4-16.0) gm/dL Hct (34.0-46.0) % Sodium (137-145) mmol/L Chloride 110 H (98-107) mmol/L Carbon Dioxide (22-30) mmol/L BUN (7-17) mg/dL Glucose (74-99) mg/dL POC Glucose (mg/dL) 114 H (75-99) mg/dL Calcium 8.1 L (8.4-10.2) mg/dL Total Creatine Kinase (30-135) U/L Total Protein 4.5 L (6.3-8.2) g/dL Albumin 2.5 L (3.5-5.0) g/dL Crossmatch Assessment and Plan Plan: 1. Status post modified left mastectomy with lymph node dissection. Continue the use of incentive spirometer to reduce the incidence of atelectasis and hospital-acquired pneumonia, continue to monitor the patient very closely, change IV fluid to normal saline at 100 mL an hour for the next 24 hours, encourage oral intake of fluids, advance diet as tolerated, his activity as tolerated with help. 2. Presyncope thought to be due to orthostatic hypotension. Hemoglobin did drop about half grams, we will recheck her CBC tomorrow morning. Transfuse for hemoglobin less than 7, continue IV fluid resuscitation normal saline 100 mL an hour for the next 24 hours. 3. History of the breast cancer status post the chemoradiation therapy as well as modified left mastectomy with lymph node dissection post chemo therapy that was done in April 2017 on Herceptin, and her the care of hematology oncology. 4. Hypertension and hypertensive cardio vascular disease. Currently hypotensive hold lisinopril for the next 24 hours. 5. Diabetes mellitus type 2. This is has not become an issue since patient underwent major weight loss after sleeve gastrectomy. Monitor the patient very closely. 6. Hyperlipidemia. Stable at this point in time. 7. Generalized anxiety disorder and recurrent depression. Continue Lexapro 10 mg orally once every day. 8. Acute blood loss anemia. Status post transfusion 1 unit of packed RBCs. 9. DVT prophylaxis. Bilateral knee-high VERA hose as well as heparin 5000 units subcutaneously every 12 hours, encourage ambulation. 10. GI prophylaxis. Continue Protonix 40 mg orally once every day. Impression and plan of care have been directed as dictated by the signing physician. Nano uDque nurse practitioner acting as scribe for signing physician.
[2017-06-10 12:32] LABS: Glucose,Whole Blood 103 mg/dL (75-99)
[2017-06-10 15:10] LABS: Basophils % (A) 0 %; CH 31.3; CHCM 32.8; Eosinophils # (A) 0.1 k/uL (0-0.7); Eosinophils % (A) 1 %; HDW 3.19; Luc # (Auto) 0.05; Luc % (Auto) 1; Lymphocytes # (A) 1.1 k/uL (1.0-4.8); Lymphocytes % (A) 23 %; MCH 30.5 pg (25.0-35.0); MCHC 31.8 g/dL (31.0-37.0); Mean Platelet Volume 7.2; Monocytes # (A) 0.3 k/uL (0-1.0); Monocytes % (A) 5 %; Neutrophils # (A) 3.3 k/uL (1.3-7.7); Neutrophils % (A) 69 %; RBC 2.61 m/uL (3.80-5.40); RDW 14.7 % (11.5-15.5); WBC 4.8 k/uL (3.8-10.6)
[2017-06-10 17:05] LABS: Glucose,Whole Blood 108 mg/dL (75-99)
[2017-06-10] MEDS: ESCITALOPRAM 10 MG TAB PO SCH (17:12)
--- NOTE | 2017-06-10 17:22 | P.OP ---
Date of Procedure: 06/10/17 Preoperative Diagnosis: Left breast cancer status post left modified radical mastectomy Left chest wall hematoma Acute blood loss anemia Postoperative Diagnosis: Same Procedure(s) Performed: Evacuation of left chest wall hematoma S/P Left MRM Implants: NA Anesthesia: CORBINA Surgeon: Precious Lubin Estimated Blood Loss (ml): 200 Pathology: none sent Condition: stable Disposition: PACU Indications for Procedure: 66 years old female status post modified radical mastectomy presents with acute blood loss anemia and chest wall hematoma. Operative Findings: No active bleeder. Approximately 300 mL of old clots evacuated. Description of Procedure: The patient was brought to the operating room and placed in supine position with both arms out. Gen. anesthesia with endotracheal intubation was performed as per anesthesia team. Pervena wound VAC was removed. Existing JAROD drains were also removed. Area was prepped with Betadine. The surgical incision was opened up using scalpel blade after removing all the sutures. Approximately 350 mL of old blood clot was evacuated. No active area of bleeding identified. There was some diffuse oozing noted from the skin flaps and hemostasis was obtained. The cavity was copiously irrigated with 3 L warm saline. 3 JAROD drains were brought out through separate stab incisions and placed up in the axilla and one along the breast flap. The subcutaneous tissue was closed with interrupted sutures of 3-0 Vicryl and running 4-0 Monocryl. The drains were secured. Dermabond skin glue applied. Clean dressings applied. Instrument and needle count were correct 2. Patient tolerated procedure well and was taken to post anesthesia care unit in stable condition
[2017-06-10] MEDS: CHOLECALCIFEROL 1,000 UNIT TAB PO SCH (17:59)
[2017-06-10] MEDS: MULTIVITAMINS, THERA 1 EACH TAB PO SCH (17:59)
[2017-06-10] MEDS: ASCORBIC ACID 500 MG TAB PO SCH (17:59)
[2017-06-10 20:31] LABS: Glucose,Whole Blood 124 mg/dL (75-99)
--- NOTE | 2017-06-10 20:33 | P.PN ---
Subjective Progress Note Date: 06/10/17 This patient is a 66-year-old right-handed white female who was seen in neurology consultation yesterday for episode of unresponsiveness and questionable stroke versus seizure. Patient underwent a computed tomography scan of the brain as well as a routine EEG both of which were reviewed and were negative for any acute findings. Patient had been admitted to the hospital and was postoperative day 1 following a modified left mastectomy and lymph node dissection for breast cancer. She was transferred to the intensive care unit when she became unresponsive and was having near syncopal episode feelings while in bed. She was noted to be severely hypotensive during the time. She was seen yesterday in the intensive care unit and was near baseline level of function. She was able to answer all questions appropriately. As mentioned her EEG was reviewed and was normal for her age. Yesterday her hemoglobin level was noted to be 8.0. Today her hemoglobin dropped to 7.4. She was ordered one unit of packed RBCs for treatment. The patient was taken back to the operating room for left chest wall hematoma evacuation with washout. A wound VAC was placed. 2 CAMELIA drains were also placed. Patient is now back in the intensive care unit following this surgery early this morning. Serial hemoglobins have been ordered for the patient. Neurologically she remains very much intact. There is no evidence of any recurrent syncope or confusion today. The patient has been sitting up in the chair in the ICU and seems to be comfortable. She denies any headache or focal weakness. We will wait to see how her repeat hemoglobin level comes back tomorrow morning. We will continue close neurological follow-up with this patient in the intensive care unit. Her overall prognosis at this time remains guarded. Objective - Vital Signs Vital signs: Vital Signs Temp 98.1 F 06/10/17 16:00 Pulse 88 06/10/17 18:00 Resp 14 06/10/17 18:00 BP 151/72 06/10/17 18:00 Pulse Ox 100 06/10/17 18:00 Intake & Output 06/09/17 06/10/17 06/10/17 18:59 06:59 18:59 Intake Total 2399 1712 1995 Output Total 630 2110 790 Balance 1769 -398 1205 Weight 95.1 kg Intake: IV 500 1475 1375 Sodium Chloride 0.9% 1, 500 1475 875 000 ml @ 125 mls/hr IV . Q8H [facility] Rx#:[id number] Intake, IV Titration 1649 Amount Magnesium Sulfate-D5w Pmx 100 1 gm In Dextrose/Water 1 100ml.bag @ 100 mls/hr IVPB Q1H [facility] Rx#: [id number] Sodium Chloride 0.9% 1, 550 000 ml @ 125 mls/hr IV . Q8H [facility] Rx#:[id number] Sodium Chloride 0.9% 1, 999 000 ml @ 999 mls/hr IV . Q1H1M [facility] Rx#:[id number] Oral 250 237 Blood Product 620 Rc As-1 Unit 310 [id number] Output: Drainage 30 10 40 CAMELIA #3 10 Left Chest 0 camelia#1 20 10 20 camelia#2 10 0 10 Urine 600 2100 550 Estimated Blood Loss 200 Other: Voiding Method Bedside Commode Bedside Commode Bedside Commode # Voids 1 - Exam Physical examination: PHYSICAL EXAMINATION: Patient is resting comfortably in bed. VITAL SIGNS: Blood pressure is [151/72]. Heart rate is [88]. Respiration is [16] . Temperature is [98.1]. HEENT: Head is atraumatic, neck is supple, there were no carotid bruits. CHEST: Lungs are clear to auscultation and percussion. CARDIAC: S1, S2 normal rate and rhythm. There is no murmur. ABDOMEN: Soft and nontender. Bowel sounds are present. EXTREMITIES: There is no pedal edema. Peripheral pulses are present. Neurological examination: Patient has a nonfocal neurological examination today in the intensive care unit. - Labs CBC & Chem 7: 06/10/17 15:00 06/10/17 04:27 Labs: Abnormal Lab Results - Last 24 Hours (Table) 06/09/17 06/09/17 06/10/17 Range/Units 16:02 20:25 04:27 RBC 2.44 L (3.80-5.40) m/uL Hgb 7.4 L (11.4-16.0) gm/dL Hct 23.0 L (34.0-46.0) % Chloride (98-107) mmol/L POC Glucose (mg/dL) 164 H (75-99) mg/dL Calcium (8.4-10.2) mg/dL Total Protein (6.3-8.2) g/dL Albumin (3.5-5.0) g/dL Crossmatch See Detail 06/10/17 06/10/17 06/10/17 Range/Units 04:27 08:08 12:30 RBC (3.80-5.40) m/uL Hgb (11.4-16.0) gm/dL Hct (34.0-46.0) % Chloride 110 H (98-107) mmol/L POC Glucose (mg/dL) 114 H 103 H (75-99) mg/dL Calcium 8.1 L (8.4-10.2) mg/dL Total Protein 4.5 L (6.3-8.2) g/dL Albumin 2.5 L (3.5-5.0) g/dL Crossmatch 06/10/17 06/10/17 Range/Units 15:00 17:02 RBC 2.61 L (3.80-5.40) m/uL Hgb 8.0 L (11.4-16.0) gm/dL Hct 25.0 L (34.0-46.0) % Chloride (98-107) mmol/L POC Glucose (mg/dL) 108 H (75-99) mg/dL Calcium (8.4-10.2) mg/dL Total Protein (6.3-8.2) g/dL Albumin (3.5-5.0) g/dL Crossmatch Assessment and Plan (1) Acute encephalopathy Status: Acute Code(s): G93.40 - ENCEPHALOPATHY, UNSPECIFIED (2) Near syncope Status: Acute Code(s): R55 - SYNCOPE AND COLLAPSE (3) History of breast cancer Status: Acute Code(s): Z85.3 - PERSONAL HISTORY OF MALIGNANT NEOPLASM OF BREAST (4) H/O total mastectomy of left breast Status: Acute Code(s): Z90.12 - ACQUIRED ABSENCE OF LEFT BREAST AND NIPPLE Plan: This patient is a 66-year-old right-handed white female who underwent a modified left mastectomy with lymph node dissection yesterday by Dr. Lubin. Patient was postoperative day one this morning at about 6 AM on the oncology floor when she suddenly developed episode of lightheadedness and lethargy. She became very lightheaded and had a near syncopal episode. Apparently her eyes rolled back and she felt very weak and nearly collapsed. She had 2 further episodes at 9 AM very similar to the first. She was sent for a CTA angiogram of the lungs which came back negative for pulmonary embolus. She then went for a computed tomography scan of the brain which was negative for any acute changes. She was then transferred to the intensive care unit for close monitoring. The patient was noted to have evidence of severe hypotension prior to coming into the ICU. She was given fluids and is now doing much better. Patient's computed tomography scan of the brain was reviewed and is negative for any acute changes. She underwent routine EEG today which is reviewed and is normal for her age. There is no evidence of any epileptiform discharges. This patient likely suffered a near syncopal episode secondary to hypotension and intravascular volume depletion. She is being closely monitored for blood loss anemia as well. Her hemoglobin today in the ICU was 8.0. She is being followed closely by his surgery and Dr. Lubin was going to reevaluate her tomorrow morning and reassess her total hemoglobin count. Her hemoglobin this morning was 7.4. This was a drop from her hemoglobin from yesterday. She was taken back to the operating room today for left chest wall hematoma evacuation with washout. She was given 1 unit of packed red cells for treatment as well. The patient neurologically remains very much intact in the ICU. She is following all commands. She has no focal deficit on examination. We are recommending close monitoring of the patient for the next 24 hours in the ICU setting. We have reviewed the results of her CAT scan of the brain and EEG today with the patient and her . All of these findings were discussed in detail. The patient did return to the operating room and seems to have made a very good recovery. She does have a very tight compression dressing to the chest wall. She is to have a repeat hemoglobin level done tomorrow morning. We will continue close neurological follow-up for this patient in the ICU. Her overall prognosis at this time remains guarded.
[2017-06-10] MEDS: diphenhydrAMINE 25 MG CAP PO PRN (22:19)
[2017-06-10 23:02] LABS: Basophils % (A) 0 %; CH 31.2; CHCM 33.1; Eosinophils # (A) 0.1 k/uL (0-0.7); Eosinophils % (A) 1 %; HDW 3.29; Luc # (Auto) 0.04; Luc % (Auto) 1; Lymphocytes % (A) 18 %; MCH 30.5 pg (25.0-35.0); MCHC 32.1 g/dL (31.0-37.0); MCV 94.8 fL (80.0-100.0); Mean Platelet Volume 6.7; Monocytes # (A) 0.4 k/uL (0-1.0); Monocytes % (A) 6 %; Neutrophils # (A) 4.1 k/uL (1.3-7.7); Neutrophils % (A) 73 %; RBC 2.64 m/uL (3.80-5.40); RDW 14.6 % (11.5-15.5); WBC 5.6 k/uL (3.8-10.6); WBC (Perox) 5.75
[2017-06-11] MEDS: SODIUM CHLORIDE 0.9% 1,000 ML IV SCH ×2 (00:06→01:55)
[2017-06-11] MEDS: HYDROmorphone 1 MG/ML 1 ML SYRINGE IVP PRN ×2 (00:13→06:09)
[2017-06-11] MEDS ORDERED: FUROSEMIDE 10 MG/ML 2 ML VIAL IV ONE (01:32)
[2017-06-11] MEDS: HYDROcodone/APAP 5-325MG 1 EACH TAB PO PRN ×3 (03:38→13:15)
[2017-06-11 05:50] LABS: Glucose,Whole Blood 118 mg/dL (75-99)
[2017-06-11] MEDS: INSULIN LISPRO (humaLOG) 300 UNIT/3 ML VIAL SQ SCH ×4 (06:05→20:09)
[2017-06-11 06:10] LABS: Basophils % (A) 0 %; CH 29.9; CHCM 32.7; Eosinophils # (A) 0.1 k/uL (0-0.7); Eosinophils % (A) 2 %; HCT 24.3 % (34.0-46.0); HDW 3.48; HGB 7.9 gm/dL (11.4-16.0); Hypochromasia Slight; Luc # (Auto) 0.13; Luc % (Auto) 2; Lymphocytes # (A) 1.3 k/uL (1.0-4.8); Lymphocytes % (A) 20 %; MCH 29.9 pg (25.0-35.0); MCHC 32.5 g/dL (31.0-37.0); MCV 92.2 fL (80.0-100.0); Mean Platelet Volume 6.4; Monocytes # (A) 0.4 k/uL (0-1.0); Monocytes % (A) 7 %; Neutrophils # (A) 4.3 k/uL (1.3-7.7); Neutrophils % (A) 69 %; Poikilocytosis Slight; RBC 2.64 m/uL (3.80-5.40); WBC 6.2 k/uL (3.8-10.6); WBC (Perox) 6.04
[2017-06-11 06:33] LABS: ALT 26 U/L (9-52); AST 21 U/L (14-36); Alkaline Phosphatase 51 U/L (38-126); Anion Gap 7 mmol/L; Blood Urea Nitrogen 13 mg/dL (7-17); Calcium 8.3 mg/dL (8.4-10.2); Carbon Dioxide 29 mmol/L (22-30); Chloride 102 mmol/L (98-107); Glucose 106 mg/dL (74-99); Non-African American GFR(MDRD) >60 (>60 ml/min/1.73 sqM); Potassium 4.2 mmol/L (3.5-5.1); Sodium 138 mmol/L (137-145); Total Bilirubin 0.3 mg/dL (0.2-1.3); Total Protein 4.9 g/dL (6.3-8.2)
[2017-06-11] MEDS: CALCIUM CARB-VIT D 500MG-200UN 1 EACH TAB PO SCH ×3 (07:05→17:13)
[2017-06-11] MEDS: diphenhydrAMINE 25 MG CAP PO PRN ×2 (07:53→17:13)
[2017-06-11] MEDS: VITAMIN E (DL,TOCOPHERYL ACET) 400 UNIT CAP PO SCH ×2 (07:55→20:09)
[2017-06-11] MEDS: PANTOPRAZOLE 40 MG/10 ML VIAL IVP SCH (07:58)
[2017-06-11] MEDS: MULTIVITAMINS, THERA 1 EACH TAB PO SCH (07:58)
[2017-06-11] MEDS: CHOLECALCIFEROL 1,000 UNIT TAB PO SCH (07:58)
[2017-06-11] MEDS: ASCORBIC ACID 500 MG TAB PO SCH (07:58)
[2017-06-11] MEDS: ESCITALOPRAM 10 MG TAB PO SCH (07:59)
--- NOTE | 2017-06-11 10:45 | P.PN ---
Subjective Progress Note Date: 06/11/17 A 66-year-old female patient who underwent a left mastectomy. The patient is postop day #1. The patient is also known to me regarding her atelectasis history of obstructive sleep apnea. She was morbidly obese and she has undergone gastric sleeve surgery with successful weight loss. She also has issues with diabetes mellitus and more recently she was diagnosed having breast cancer and she has completed chemotherapy on 05/09/2017 and she was admitted for a left mastectomy and lymph node dissection. Surgery was done without any complications. The patient was on a medical floor when she was trying to get out to the bathroom and she felt dizzy and she had an episode of presyncope. During that time she dropped her blood pressure down to the mid 80s. She was placed back in bed. A CT angios the chest was done that showed no acute abnormalities and there was no evidence of PE or pneumonia. She had another episode where she was laying down in bed and she felt nauseous and sweaty and she had a another episode of presyncope without any tonic body postures or any jerking body movements in upper and lower extremities. Currently she is doing well. CAT scan of the brain will be done. No speech deficits pH is fully alert and awake. She is following commands. She is answering questions. No focal neurological deficit. No vision changes. No speech changes. She is hemodynamically stable. Blood sugar during these episodes showed a level of above 200. No cardiac arrhythmias have been noted. Cardiac rhythm is sinus. EKG and cardiac enzymes are to follow. The patient is seen again today 06/10/2017 in follow-up in the intensive care unit. She is awake and alert and oriented 3, in no acute distress. She did not have any further episodes of syncope throughout the evening. She has remained hemodynamically stable. No pressors required. Afebrile. Maintaining good O2 saturations in the 90s on room air. CT of the brain was negative for abnormality. EEG was normal. Troponins were negative. Her hemoglobin this morning is 7.4. She is receiving 1 unit of packed red blood cells. 2 more units are available. She has been seen and evaluated by Dr. Lubin who was planning to take the patient back to the operating room today for left chest wall hematoma evacuation and washout. Wound VAC remains in place. CAMELIA drains [address] with minimal sanguineous drainage. On 06/11/2017 the patient is being seen in follow-up. The patient is doing well. As mentioned the patient was taken to back to the operating room and she had an evacuation of a hematoma of her left breast. Currently she is not having any active bleeding. His hemoglobin has remained stable and hemodynamics is also remains stable. Morning hemoglobin is at 7.9. She is post modified radical mastectomy of the left breast and she has no specific complaints pH is tolerating her diet. No nausea vomiting or diarrhea. No abdominal pain. Objective - Vital Signs Vital signs: Vital Signs Temp 97.8 F 06/11/17 08:00 Pulse 83 06/11/17 08:00 Resp 18 06/11/17 08:00 BP 134/64 06/11/17 08:00 Pulse Ox 93 L 06/11/17 08:00 Intake & Output 06/10/17 06/11/17 06/11/17 18:59 06:59 18:59 Intake Total 1995 525 120 Output Total 790 125 Balance 1205 400 120 Weight 91.7 kg Intake: IV 1375 525 Sodium Chloride 0.9% 1, 875 525 000 ml @ 80 mls/hr IV . [id number] [facility] Rx#:[id number] Oral 120 Blood Product 620 Rc As-1 Unit 310 [id number] Output: Drainage 40 125 CAMELIA #3 10 55 camelia#1 20 35 camelia#2 10 35 Urine 550 Estimated Blood Loss 200 Other: Voiding Method Bedside Commode Toilet # Voids 2 - Exam Gen. appearance the patient is calm and comfortable. The patient not having any respiratory difficulties. She is alert and awake. She is asked to questions appropriately. Head exam was generally normal. There was no scleral icterus or corneal arcus. Mucous membranes were moist.Neck was supple and without jugular venous distension, thyromegaly, or carotid bruits. Carotids were easily palpable bilaterally. There was no adenopathy.Lungs were clear to auscultation and percussion, and with normal diaphragmatic excursion. No wheezes or rales were noted. Cardiac exam revealed the PMI to be normally situated and sized. The rhythm was regular and no extrasystoles were noted during several minutes of auscultation. The first and second heart sounds were normal and physiologic splitting of the second heart sound was noted. There were no murmurs, rubs, clicks, or gallops.Abdominal exam revealed normal bowel sounds. The abdomen was soft, non-tender, and without masses, organomegaly, or appreciable enlargement of the abdominal aorta.Examination of the extremities revealed easily palpable radial, femoral and pedal pulses. There was no cyanosis , clubbing or edema. The surgical wound site over the left anterior chest area dry clean and intact. Wound VAC is in place. Neurologically she is awake and alert. Speech is within normal. No focal neurological deficit. Cranial nerves are intact. Skeletal examination shows no arthritis or joint deformities. - Labs CBC & Chem 7: 06/11/17 05:50 06/11/17 05:50 Labs: Abnormal Lab Results - Last 24 Hours (Table) 06/09/17 06/10/17 06/10/17 Range/Units 16:02 12:30 15:00 RBC 2.61 L (3.80-5.40) m/uL Hgb 8.0 L (11.4-16.0) gm/dL Hct 25.0 L (34.0-46.0) % Glucose (74-99) mg/dL POC Glucose (mg/dL) 103 H (75-99) mg/dL Calcium (8.4-10.2) mg/dL Total Protein (6.3-8.2) g/dL Albumin (3.5-5.0) g/dL Crossmatch See Detail 06/10/17 06/10/17 06/10/17 Range/Units 17:02 20:28 22:30 RBC 2.64 L (3.80-5.40) m/uL Hgb 8.0 L (11.4-16.0) gm/dL Hct 25.0 L (34.0-46.0) % Glucose (74-99) mg/dL POC Glucose (mg/dL) 108 H 124 H (75-99) mg/dL Calcium (8.4-10.2) mg/dL Total Protein (6.3-8.2) g/dL Albumin (3.5-5.0) g/dL Crossmatch 06/11/17 06/11/17 06/11/17 Range/Units 05:48 05:50 05:50 RBC 2.64 L (3.80-5.40) m/uL Hgb 7.9 L (11.4-16.0) gm/dL Hct 24.3 L (34.0-46.0) % Glucose 106 H (74-99) mg/dL POC Glucose (mg/dL) 118 H (75-99) mg/dL Calcium 8.3 L (8.4-10.2) mg/dL Total Protein 4.9 L (6.3-8.2) g/dL Albumin 2.8 L (3.5-5.0) g/dL Crossmatch Assessment and Plan Plan: Assessment 1 presyncope, highly doubt any acute neurologic event or cardiovascular events. She is fully alert and awake without any focal neurological deficit and her CT angios the chest has been negative for now. Probably related to hypotension/ intravascular volume depletion with postoperative blood loss and she without open a hematoma the left breast and the hematoma was evacuated surgically and the patient is postop day #1 from modified radical mastectomy and postop day #2 post hematoma evacuation. Hemoglobin stable at 7.9. Hemodynamically stable. 2 obesity with a previous gastric sleeve 3 obstructive sleep apnea 4 diabetes mellitus 5 distention 6 breast cancer with recent left mastectomy and lymph node dissection and the patient is postop day #2 7 postoperative anemia with a hemoglobin of 8.2, currently 7.9. She is receiving 1 unit of packed red blood cells. 8 hyperlipidemia 9 anxiety/depression Plan Continue routine postoperative care. Monitor hemoglobin. We'll continue to follow as needed. We'll need further surgical follow-up.
[2017-06-11 11:43] LABS: Glucose,Whole Blood 142 mg/dL (75-99)
--- NOTE | 2017-06-11 12:03 | PN ---
PROGRESS NOTE INTERVAL HISTORY: Patient continues to be hemodynamically stable. No major events reported overnight. Patient currently is denying chest pain, shortness of breath, nausea, vomiting, abdominal pain, dizziness, lightheadedness and blurry vision. PHYSICAL EXAMINATION: Vital signs reviewed and stable. LUNGS: Diminished bilaterally. HEART: Normal S1, S2. ABDOMEN: Soft. No tenderness. Positive bowel sounds in all 4 quadrants. LOWER EXTREMITIES: No edema. PSYCH: Alert, oriented x3. LEFT BREAST AREA: Dressing intact and clean. IMAGING AND LABS: Hemoglobin this morning 7.9, down from 8.0 yesterday. Chemistry seems to be stable. Glucose fluctuating between 106 and 124. Albumin is 2.8 and total protein 4.9. ASSESSMENT AND PLAN: 1. Status post modified left mastectomy with lymph node dissection. Patient seems to be clinically improved and discharge planning per primary surgery recommendation. Will Hep-Lock the fluid and encourage oral intake. 2. Presyncope, resolved; likely orthostatic. 3. History of breast cancer. Follow up with oncology recommendations. 4. Hypertension, under fair control. 5. Diabetes, fairly controlled. Will continue current medication. 6. Hyperlipidemia. Will continue statin. 7. Anxiety, under fair control. 8. Anemia, stable and asymptomatic. Will avoid transfusion. 9. Discharge planning per primary team recommendations. MMODL / IJN: [id number] /
[2017-06-11] MEDS ORDERED: HYDROcodone/APAP 10-325MG 1 EACH TAB PO PRN (16:38)
[2017-06-11 16:53] LABS: Glucose,Whole Blood 135 mg/dL (75-99)
[2017-06-11 20:06] LABS: Glucose,Whole Blood 110 mg/dL (75-99)
[2017-06-11] MEDS: HYDROcodone/APAP 10-325MG 1 EACH TAB PO PRN (20:09)
--- NOTE | 2017-06-11 23:27 | P.PN ---
Subjective Progress Note Date: 06/11/17 Principal diagnosis: Left breast cancer S/P left MRM for left breast cancer. Patient had SOB and dizziness. No falls. No tachycardia or hypotension. Pain in left axilla. Hb drop from 11 as outpatient to 9 on post op #1 and 7.4 on post op #2 . CAMELIA drains have sanguinous output. She had work up including CTA negative for PE. S/P evacuation of left chest wall hematoma. Hb stable, 7.9 this am. Patient reports no further dizziness episodes or chest pain. CAMELIA drains have serosanguinous output Objective - Vital Signs Vital signs: Vital Signs Temp 99.1 F 06/11/17 22:27 Pulse 85 06/11/17 22:27 Resp 17 06/11/17 22:27 BP 135/75 06/11/17 22:27 Pulse Ox 90 L 06/11/17 22:27 Intake & Output 06/11/17 06/11/17 06/12/17 06:59 18:59 06:59 Intake Total 525 360 Output Total 125 490 690 Balance 400 -130 -690 Weight 91.7 kg Intake: IV 525 Sodium Chloride 0.9% 1, 525 000 ml @ 80 mls/hr IV . [id number] [facility] Rx#:[id number] Oral 360 Output: Drainage 125 90 90 CAMELIA #3 55 30 30 camelia#1 35 30 30 camelia#2 35 30 30 Urine 400 600 Other: Voiding Method Toilet Toilet # Voids 2 # Bowel Movements 0 - Exam Patient alert and awake. Not in acute distress Breast flaps - viable. CAMELIA drains x3have serous output - Labs CBC & Chem 7: 06/11/17 05:50 06/11/17 05:50 Labs: Abnormal Lab Results - Last 24 Hours (Table) 06/09/17 06/11/17 06/11/17 Range/Units 16:02 05:48 05:50 RBC (3.80-5.40) m/uL Hgb (11.4-16.0) gm/dL Hct (34.0-46.0) % Glucose 106 H (74-99) mg/dL POC Glucose (mg/dL) 118 H (75-99) mg/dL Calcium 8.3 L (8.4-10.2) mg/dL Total Protein 4.9 L (6.3-8.2) g/dL Albumin 2.8 L (3.5-5.0) g/dL Crossmatch See Detail 06/11/17 06/11/17 06/11/17 Range/Units 05:50 11:30 16:39 RBC 2.64 L (3.80-5.40) m/uL Hgb 7.9 L (11.4-16.0) gm/dL Hct 24.3 L (34.0-46.0) % Glucose (74-99) mg/dL POC Glucose (mg/dL) 142 H 135 H (75-99) mg/dL Calcium (8.4-10.2) mg/dL Total Protein (6.3-8.2) g/dL Albumin (3.5-5.0) g/dL Crossmatch 06/11/17 Range/Units 20:03 RBC (3.80-5.40) m/uL Hgb (11.4-16.0) gm/dL Hct (34.0-46.0) % Glucose (74-99) mg/dL POC Glucose (mg/dL) 110 H (75-99) mg/dL Calcium (8.4-10.2) mg/dL Total Protein (6.3-8.2) g/dL Albumin (3.5-5.0) g/dL Crossmatch Assessment and Plan (1) H/O total mastectomy of left breast Status: Acute (2) History of breast cancer Status: Acute Plan: 1. S/P left MRM, S/p evacuation of left chest wall hematoma 2. Symptomatic acute blood loss anemia. Received1 unit of PRBC. 2Units PRBC on hold 3. Hb stable 4. regular diet 5. CBc in am 6. DC planning in am
[2017-06-12] MEDS: HYDROcodone/APAP 10-325MG 1 EACH TAB PO PRN ×2 (02:55→10:06)
[2017-06-12] MEDS: diphenhydrAMINE 25 MG CAP PO PRN (05:31)
[2017-06-12 07:25] LABS: Glucose,Whole Blood 101 mg/dL (75-99)
[2017-06-12 08:01] LABS: CH 31.4; CHCM 33.3; HCT 28.3 % (34.0-46.0); HDW 3.22; MCH 30.2 pg (25.0-35.0); MCHC 31.9 g/dL (31.0-37.0); MCV 94.8 fL (80.0-100.0); Mean Platelet Volume 7.3; RBC 2.98 m/uL (3.80-5.40); RDW 14.8 % (11.5-15.5)
[2017-06-12] MEDS: ESCITALOPRAM 10 MG TAB PO SCH (08:48)
[2017-06-12] MEDS: CALCIUM CARB-VIT D 500MG-200UN 1 EACH TAB PO SCH (08:48)
[2017-06-12] MEDS: ASCORBIC ACID 500 MG TAB PO SCH (08:49)
[2017-06-12] MEDS: VITAMIN E (DL,TOCOPHERYL ACET) 400 UNIT CAP PO SCH (08:49)
[2017-06-12] MEDS: INSULIN LISPRO (humaLOG) 300 UNIT/3 ML VIAL SQ SCH (08:53)
[2017-06-12] MEDS ORDERED: PANTOPRAZOLE 40 MG TABLET PO SCH (09:15)
[2017-06-12 10:33] VITALS: BP 149/68; PULSE 78; RESP 14; TEMP 98.6
--- NOTE | 2017-06-12 13:52 | P.PN ---
Subjective Progress Note Date: 06/11/17 This patient is a 66-year-old right-handed white female who was seen in neurology consultation yesterday for episode of unresponsiveness and questionable stroke versus seizure. Patient underwent a computed tomography scan of the brain as well as a routine EEG both of which were reviewed and were negative for any acute findings. Patient had been admitted to the hospital and was postoperative day 1 following a modified left mastectomy and lymph node dissection for breast cancer. She was transferred to the intensive care unit when she became unresponsive and was having near syncopal episode feelings while in bed. She was noted to be severely hypotensive during the time. She was seen yesterday in the intensive care unit and was near baseline level of function. She was able to answer all questions appropriately. As mentioned her EEG was reviewed and was normal for her age. Yesterday her hemoglobin level was noted to be 8.0. Today her hemoglobin dropped to 7.4. She was ordered one unit of packed RBCs for treatment. The patient was taken back to the operating room for left chest wall hematoma evacuation with washout. A wound VAC was placed. 2 CAMELIA drains were also placed. Patient is now back in the intensive care unit following this surgery early this morning. Serial hemoglobins have been ordered for the patient. Neurologically she remains very much intact. There is no evidence of any recurrent syncope or confusion today. The patient has been sitting up in the chair in the ICU and seems to be comfortable. She denies any headache or focal weakness. We will wait to see how her repeat hemoglobin level comes back tomorrow morning. The patient was transferred to the surgical floor earlier today. She seems to continue to do very well in terms of her recovery from her recent surgery. She is being considered for possible discharge home tomorrow morning. We will continue close neurological follow-up with this patient in the intensive care unit. Her overall prognosis at this time remains guarded. Objective - Vital Signs Vital signs: Vital Signs Temp 97.8 F 06/11/17 08:00 Pulse 83 06/11/17 08:00 Resp 18 06/11/17 08:00 BP 134/64 06/11/17 08:00 Pulse Ox 93 L 06/11/17 08:00 Intake & Output 06/10/17 06/11/17 06/11/17 18:59 06:59 18:59 Intake Total 1995 525 120 Output Total 790 125 Balance 1205 400 120 Weight 91.7 kg Intake: IV 1375 525 Sodium Chloride 0.9% 1, 875 525 000 ml @ 80 mls/hr IV . [id number] [facility] Rx#:[id number] Oral 120 Blood Product 620 Rc As-1 Unit 310 [id number] Output: Drainage 40 125 CAMELIA #[phone] camelia#1 20 [phone] camelia#[phone] Urine 550 Estimated Blood Loss 200 Other: Voiding Method Bedside Commode Toilet # Voids 2 - Exam Physical examination: PHYSICAL EXAMINATION: Patient is resting comfortably in bed. VITAL SIGNS: Blood pressure is [146/80]. Heart rate is [85]. Respiration is [18] . Temperature is [97.8]. HEENT: Head is atraumatic, neck is supple, there were no carotid bruits. CHEST: Lungs are clear to auscultation and percussion. CARDIAC: S1, S2 normal rate and rhythm. There is no murmur. ABDOMEN: Soft and nontender. Bowel sounds are present. EXTREMITIES: There is no pedal edema. Peripheral pulses are present. Neurological examination: Patient has a nonfocal neurological examination today on the surgical medical floor. She has a normal neurological exam with no focal deficits. - Labs CBC & Chem 7: 06/12/17 06:40 06/11/17 05:50 Labs: Abnormal Lab Results - Last 24 Hours (Table) 06/09/17 06/10/17 06/10/17 Range/Units 16:02 12:30 15:00 RBC 2.61 L (3.80-5.40) m/uL Hgb 8.0 L (11.4-16.0) gm/dL Hct 25.0 L (34.0-46.0) % Glucose (74-99) mg/dL POC Glucose (mg/dL) 103 H (75-99) mg/dL Calcium (8.4-10.2) mg/dL Total Protein (6.3-8.2) g/dL Albumin (3.5-5.0) g/dL Crossmatch See Detail 06/10/17 06/10/17 06/10/17 Range/Units 17:02 20:28 22:30 RBC 2.64 L (3.80-5.40) m/uL Hgb 8.0 L (11.4-16.0) gm/dL Hct 25.0 L (34.0-46.0) % Glucose (74-99) mg/dL POC Glucose (mg/dL) 108 H 124 H (75-99) mg/dL Calcium (8.4-10.2) mg/dL Total Protein (6.3-8.2) g/dL Albumin (3.5-5.0) g/dL Crossmatch 06/11/17 06/11/17 06/11/17 Range/Units 05:48 05:50 05:50 RBC 2.64 L (3.80-5.40) m/uL Hgb 7.9 L (11.4-16.0) gm/dL Hct 24.3 L (34.0-46.0) % Glucose 106 H (74-99) mg/dL POC Glucose (mg/dL) 118 H (75-99) mg/dL Calcium 8.3 L (8.4-10.2) mg/dL Total Protein 4.9 L (6.3-8.2) g/dL Albumin 2.8 L (3.5-5.0) g/dL Crossmatch Assessment and Plan (1) Acute encephalopathy Status: Acute Code(s): G93.40 - ENCEPHALOPATHY, UNSPECIFIED (2) Near syncope Status: Acute Code(s): R55 - SYNCOPE AND COLLAPSE (3) History of breast cancer Status: Acute Code(s): Z85.3 - PERSONAL HISTORY OF MALIGNANT NEOPLASM OF BREAST (4) H/O total mastectomy of left breast Status: Acute Code(s): Z90.12 - ACQUIRED ABSENCE OF LEFT BREAST AND NIPPLE Plan: This patient is a 66-year-old right-handed white female who underwent a modified left mastectomy with lymph node dissection yesterday by Dr. Lubin. Patient was postoperative day one this morning at about 6 AM on the oncology floor when she suddenly developed episode of lightheadedness and lethargy. She became very lightheaded and had a near syncopal episode. Apparently her eyes rolled back and she felt very weak and nearly collapsed. She had 2 further episodes at 9 AM very similar to the first. She was sent for a CTA angiogram of the lungs which came back negative for pulmonary embolus. She then went for a computed tomography scan of the brain which was negative for any acute changes. She was then transferred to the intensive care unit for close monitoring. The patient was noted to have evidence of severe hypotension prior to coming into the ICU. She was given fluids and is now doing much better. Patient's computed tomography scan of the brain was reviewed and is negative for any acute changes. She underwent routine EEG today which is reviewed and is normal for her age. There is no evidence of any epileptiform discharges. This patient likely suffered a near syncopal episode secondary to hypotension and intravascular volume depletion. She is being closely monitored for blood loss anemia as well. Her hemoglobin today in the ICU was 8.0. She is being followed closely by his surgery and Dr. Lubin was going to reevaluate her tomorrow morning and reassess her total hemoglobin count. Her hemoglobin this morning was 7.4. This was a drop from her hemoglobin from yesterday. She was taken back to the operating room today for left chest wall hematoma evacuation with washout. She was given 1 unit of packed red cells for treatment as well. The patient neurologically remains very much intact in the ICU. She is following all commands. She has no focal deficit on examination. We are recommending close monitoring of the patient for the next 24 hours in the ICU setting. We have reviewed the results of her CAT scan of the brain and EEG today with the patient and her . All of these findings were discussed in detail. The patient did return to the operating room and seems to have made a very good recovery. She does have a very tight compression dressing to the chest wall. She is to have a repeat hemoglobin level done tomorrow morning. Patient's neurological examination remains nonfocal. She appears to be near baseline level of function. She will likely be able to be discharged home tomorrow morning. We will continue close neurological follow-up for this patient in the ICU. Her overall prognosis at this time remains guarded.
== END 2017-06-12 11:34 | disposition home health service (06) | DRG 579 ==
LOC: OR 10:01 → 5ONC 14:45 → OR 06-09 11:37 → 5ONC 06-09 11:37 → 6ICU 06-09 14:10 → 6SEL 06-11 01:20 → 3SUR 06-11 15:44
PROVIDERS: ADMIT Surgery; ATTEND Surgery
PROC: 0HBU0ZZ Excision of Left Breast, Open Approach (ICD-10-PCS; principal; 2017-06-09)
PROC: 07B60ZX Excision of Left Axillary Lymphatic, Open Approach, Diagnostic (ICD-10-PCS; principal; 2017-06-09)
PROC: 30233N1 Transfusion of Nonautologous Red Blood Cells into Peripheral Vein, Percutaneous Approach (ICD-10-PCS; 2017-06-10)
PROC: 0JC60ZZ Extirpation of Matter from Chest Subcutaneous Tissue and Fascia, Open Approach (ICD-10-PCS; 2017-06-10)
DX: C50.912 Malignant neoplasm of unspecified site of left female breast (principal); G93.40 Encephalopathy, unspecified; D62 Acute posthemorrhagic anemia; I95.9 Hypotension, unspecified; E86.9 Volume depletion, unspecified; E11.9 Type 2 diabetes mellitus without complications; E78.5 Hyperlipidemia, unspecified; G47.33 Obstructive sleep apnea (adult) (pediatric); I10 Essential (primary) hypertension; F32.9 Major depressive disorder, single episode, unspecified; F41.9 Anxiety disorder, unspecified; S20.212A Contusion of left front wall of thorax, initial encounter; Z17.0 Estrogen receptor positive status [ER+]; Z79.82 Long term (current) use of aspirin; Z79.899 Other long term (current) drug therapy; Z80.1 Family history of malignant neoplasm of trachea, bronchus and lung; Z82.49 Family history of ischemic heart disease and other diseases of the circulatory system; Z85.828 Personal history of other malignant neoplasm of skin; Z92.21 Personal history of antineoplastic chemotherapy; Z98.84 Bariatric surgery status; Z88.2 Allergy status to sulfonamides
CPT/HCPCS: 38792; 70450; 71275; 80053; 82550; 82553; 83036; 83735; 84100; 84132; 84484; 85025; 85027; 86850; 86900; 86901; 86920; 88307; 88331; 88332; 88341; 88342; 94760; 95819

== ENCOUNTER → 2017-12-27 | Day surgery (SDC) | payer MEDICARE ==
[2017-12-22 11:04] VITALS: BMI 32.9
[~2017-12-27] MED LIST changes: +ALPRAZolam 0.25 MG TAB PO PRN; +ALPRAZolam 0.5 MG TAB PO PRN; +ASPIRIN 325 MG TAB PO STA; +ATORVASTATIN 80 MG TAB PO STA; -DEXAMETHASONE SOD PHOSPHATE 10 MG/ML 1 ML VIAL IV ONE; -HEPARIN SODIUM,PORCINE 5,000 UNIT/ML 1 ML VIAL SQ ONE; -HYDROmorphone 0.5 MG/0.5 ML SYRINGE IVP PRN; +IOPAMIDOL-370 125ML BTL INJ ONE; +IOPAMIDOL-370 50ML BTL INJ ONE; -LACTATED RINGERS 1,000 ML IV SCH; -LIDOCAINE 1% 20 ML VIAL (10MG/ML) FOR IV START INTRADERMA PRN; +LIDOCAINE 2% INJ 20 MG/ML SQ ONE; +MIDAZOLAM 2 MG/2 ML VIAL IV ONE; -MIDAZOLAM 2 MG/2 ML VIAL IV PRN; +NITROGLYCERIN SL TABS 0.4 MG TAB SUBLINGUAL PRN; -ONDANSETRON 4 MG/2 ML VIAL IVP ONE; -Pre Op ABX Message 1 EACH MISC MISCELLANE ONE; +RX INFO: IV CONTRAST WAS GIVEN 1 EACH MISC MISCELLANE PRN; -SCOPOLAMINE 1.5MG/72HR PATCH TRANSDERM ONE; +SODIUM CHLORIDE 0.9% 1,000 ML IV ONE; +SODIUM CHLORIDE 0.9% 1,000 ML IV SCH; +SODIUM CHLORIDE 0.9% 1,000 ML in EMPTY BAG 1 BAG IV ONE; -ceFAZolin 2 GM in SODIUM CHLORIDE 0.9% 100 ML IVPB ONE; +fentaNYL (PF) 50 MCG/ML 2 ML AMP IV ONE
[2017-12-27 10:13] VITALS: BP 139/71; PULSE 58; RESP 20; TEMP 98.1
[2017-12-27 10:31] LABS: Anion Gap 9 mmol/L; Blood Urea Nitrogen 23 mg/dL (7-17); Calcium 9.5 mg/dL (8.4-10.2); Carbon Dioxide 33 mmol/L (22-30); Chloride 100 mmol/L (98-107); Glucose 92 mg/dL (74-99); Potassium 4.6 mmol/L (3.5-5.1); Sodium 142 mmol/L (137-145)
--- NOTE | 2017-12-27 11:19 | P.PCN ---
Date of Procedure: 12/27/17 Preoperative Diagnosis: Ischemic cardiomyopathy, shortness of breath Postoperative Diagnosis: Triple-vessel disease and cardiomyopathy Procedure(s) Performed: Left heart catheterization with left ventriculography Description of Procedure: HISTORY: This is a 66-year-old female with history of hypertension and family history of ischemic heart disease was recently diagnosed to have breast cancer. She has completed 7 course of chemotherapy. An echocardiogram done recently showed evidence of ischemic cardiomyopathy with the focal wall motion abnormalities. She is advised to have a cardiac catheterization for definitive diagnosis. CONSENT:I have discussed the risks, benefits and alternative therapies for the above-mentioned procedure and for both sedation/analgesia as well as necessary blood product administration, if indicated, as they pertain to this patient. The patient has indicated understanding and acceptance of the risks and procedures discussed. PROCEDURE: Patient was brought to the lab in a fasting state. Patient was given some IV sedation. The right groin is infiltrated with lidocaine and right femoral artery was entered using Seldinger technique. A 6-Mohawk catheter was left in place and selective coronary arteriography and left ventriculography was performed. Patient tolerated the procedure well. Femoral angiogram was performed and Angio-Seal was applied for hemostasis. No immediate complications were noted and patient was transferred to [facility] in a stable condition Conscious Sedation: Versed 1mg Fentanyl 50g Duration 35minutes HEMODYNAMICS: The aortic pressure is about 150/70. Left ankle end-diastolic pressure is about 10. No gradient across the aortic valve SELECTIVE CORONARY ARTERIOGRAPHY: LEFT MAIN: Normal length and patent THE LEFT ANTERIOR DESCENDING CORONARY ARTERY: This is a moderate caliber vessel with diffuse disease in the midportion involving a long segment. There after the origin of the first septal and diagonal branches is a long area of stenosis with a 95-99% luminal narrowing. The LAD appears to be relatively small beyond the lesion. THE LEFT CIRCUMFLEX AND IS CORONARY ARTERY: This is a large caliber vessel giving rise to a PLV branch. There is total occlusion of OM branch which is filled by faint collaterals in a retrograde fashion. THE RIGHT CORONARY ARTERY: This is a dominant vessel and good in caliber. There is 50-60% stenosis proximally. And use ice to PDA and PLV branches. The PDA branch is about 80-90% stenosis. LEFT VENTRICULOGRAPHY: This revealed mildly dilated left ventricle with moderate to severe hypokinesis of the anteroapical and mid inferior wall and apical regions. Ejection fraction about 30-35% FINAL IMPRESSION: Triple-vessel disease with a long critical lesion involving the mid LAD, total occlusion of the OM branch of the circumflex, intermediate disease involving the proximal RCA with a critical lesion involving the PDA. Ischemic cardiomyopathy with ejection fraction 30 to 35% PLAN: Maximum medical therapy. Films are reviewed with Dr. SHRUTHI Ma. He is planning to do states stent placement of the LAD and the PDA, probable with atherectomy. PROGNOSIS: Guarded.
== END | disposition home or self-care (01) ==
LOC: CATHCVL 09:27
PROVIDERS: ATTEND Internal Medicine Cardiovascular Disease
DX: I25.10 Atherosclerotic heart disease of native coronary artery without angina pectoris (principal); I25.82 Chronic total occlusion of coronary artery; I25.5 Ischemic cardiomyopathy; I11.0 Hypertensive heart disease with heart failure; I50.9 Heart failure, unspecified; C50.919 Malignant neoplasm of unspecified site of unspecified female breast; Z92.21 Personal history of antineoplastic chemotherapy; Z82.49 Family history of ischemic heart disease and other diseases of the circulatory system; Z79.82 Long term (current) use of aspirin; Z79.899 Other long term (current) drug therapy; Z88.2 Allergy status to sulfonamides
CPT/HCPCS: 93458; 80048; C1760; C1894; C1769; J2001; J2250; J3010; Q9967 ×2

== ENCOUNTER 2018-01-03 07:21 | Day surgery (SDC) | payer MEDICARE ==
[~2018-01-03 07:21] MED LIST changes: -ALPRAZolam 0.5 MG TAB PO PRN; -IOPAMIDOL-370 125ML BTL INJ ONE; -IOPAMIDOL-370 50ML BTL INJ ONE; -LIDOCAINE 2% INJ 20 MG/ML SQ ONE; -MIDAZOLAM 2 MG/2 ML VIAL IV ONE; -NITROGLYCERIN SL TABS 0.4 MG TAB SUBLINGUAL PRN; -RX INFO: IV CONTRAST WAS GIVEN 1 EACH MISC MISCELLANE PRN; -SODIUM CHLORIDE 0.9% 1,000 ML IV ONE; -SODIUM CHLORIDE 0.9% 1,000 ML IV SCH; -fentaNYL (PF) 50 MCG/ML 2 ML AMP IV ONE
[2018-01-03 08:10] LABS: Anisocytosis Slight; Basophils % (A) 1 %; Eosinophils # (A) 0.2 k/uL (0-0.7); Eosinophils % (A) 5 %; HCT 34.2 % (34.0-46.0); HGB 11.2 gm/dL (11.4-16.0); Lymphocytes # (A) 1.4 k/uL (1.0-4.8); Lymphocytes % (A) 33 %; MCH 26.3 pg (25.0-35.0); MCHC 32.8 g/dL (31.0-37.0); MCV 80.2 fL (80.0-100.0); Mean Platelet Volume 6.9; Monocytes # (A) 0.3 k/uL (0-1.0); Monocytes % (A) 7 %; Neutrophils # (A) 2.1 k/uL (1.3-7.7); Neutrophils % (A) 51 %; Platelet Count 236 k/uL (150-450); RBC 4.27 m/uL (3.80-5.40); RDW 16.7 % (11.5-15.5); WBC 4.2 k/uL (3.8-10.6)
[2018-01-03] MEDS ORDERED: LIDOCAINE 2% INJ 20 MG/ML (20 ML MDV) ONE (09:25)
[2018-01-03] MEDS ORDERED: MIDAZOLAM 2 MG/2 ML VIAL ONE (09:25)
[2018-01-03] MEDS ORDERED: diphenhydrAMINE 50 MG/ML 1 ML VIAL ONE (09:25)
[2018-01-03] MEDS ORDERED: diphenhydrAMINE 50 MG/ML 1 ML VIAL IVP ONE (09:36)
[2018-01-03] MEDS: MIDAZOLAM 2 MG/2 ML VIAL IV ONE ×2 (09:41→10:18)
[2018-01-03] MEDS ORDERED: fentaNYL (PF) 50 MCG/ML 2 ML AMP ONE (09:46)
[2018-01-03] MEDS ORDERED: LIDOCAINE 2% INJ 20 MG/ML SQ ONE (09:48)
[2018-01-03] MEDS ORDERED: fentaNYL (PF) 50 MCG/ML 2 ML AMP IV ONE (09:51)
[2018-01-03] MEDS ORDERED: BIVALIRUDIN BOLUS 250 MG/50 ML IV ONE (09:57)
[2018-01-03] MEDS ORDERED: BIVALIRUDIN 250 MG in SODIUM CHLORIDE 0.9% 50 ML IV ONE (09:58)
[2018-01-03] MEDS: NITROGLYCERIN 1000MCG/10ML SYRINGE INTRACORON ONE ×2 (10:25→10:51)
[2018-01-03] MEDS ORDERED: NITROGLYCERIN SL TABS 0.4 MG TAB SUBLINGUAL ONE ×2 (10:39→10:41)
[2018-01-03] MEDS ORDERED: TICAGRELOR 90 MG TAB ONE (10:46)
[2018-01-03] MEDS ORDERED: TICAGRELOR 90 MG TAB PO ONE (10:48)
[2018-01-03] MEDS: SODIUM CHLORIDE 0.9% 1,000 ML IV SCH ×2 (11:00→23:57)
[2018-01-03] MEDS ORDERED: IOPAMIDOL-370 100ML BTL INJ ONE ×2 (11:09→11:10)
[2018-01-03] MEDS ORDERED: MAG HYDROX/AL HYDROX/SIMETH 30 ML CUP PO PRN (11:12)
[2018-01-03] MEDS ORDERED: ATROPINE SULFATE 0.1 MG/ML 10ML SYRINGE IV PRN (11:12)
[2018-01-03] MEDS ORDERED: ZOLPIDEM 5 MG TAB PO PRN (11:12)
[2018-01-03] MEDS ORDERED: RX INFO: IV CONTRAST WAS GIVEN 1 EACH MISC MISCELLANE PRN (11:12)
[2018-01-03] MEDS ORDERED: NITROGLYCERIN SL TABS 0.4 MG TAB SUBLINGUAL PRN (11:12)
[2018-01-03] MEDS ORDERED: IBUPROFEN 400 MG TAB PO STA (11:27)
--- NOTE | 2018-01-03 11:30 | PTCA ---
PERCUTANEOUSTRANS CORORONARY ANGIOGRAPHY This is a 67-year-old lady with a history of hypertension and hypercholesterolemia who was seen by Dr. Sanchez and after she also developed breast cancer and has a treatment with chemotherapy for breast cancer progress, she was found to have significant LV dysfunction. Dr. Sanchez evaluated the patient and performed coronary angiography last week and the study revealed a significant lesion involving the mid LAD. This was a very long lesion which was heavily calcified and the lesion extended before a diagonal branch, beyond the diagonal into the second large diagonal branch. She was advised intervention electively and was brought in for the procedure. Risks, benefits, options and rationale were carefully explained to the patient in the office. I spoke to the patient and and they understood the rationale for the procedure and involved risks, which were quite higher than usual. I recommended orbital atherectomy and stenting. PROCEDURE NOTE: Under local anesthesia and strict aseptic precautions, a 6-Croatian introducer was placed in the right femoral artery. I used a XB LAD guide catheter to cannulate the left coronary artery. I used a Whisper wire to cross the lesion and wire was kept in the second diagonal branch distally. I exchanged this wire for a ViperWire using a Supercross straight catheter. I then advanced under fluoroscopic guidance the orbital atherectomy catheter very carefully and made about 2 passes and the lesion appeared to be quite tight. After 2 passes, the wire came back somewhat proximally. I then took the device out and exchanged this wire with a Supercross catheter for a Whisper wire. Wire was kept distally. I then performed dilatation of the mid LAD. Two inflations were given with a 12 mm long 2.25 caliber NC Trek balloon. I then deployed a 12 mm long 2.5 caliber Xience stent in the distal portion of the lesion. Proximal to it and telescoping into it was a 15 mm long 2.5 caliber Xience stent that just ended at the diagonal branch and this was the first diagonal. The distal stent was placed just before the second diagonal and the proximal stent was placed just after the first diagonal. I then noted that proximal to the first diagonal there was another focal lesion. This was addressed with a 3.0 caliber 8 mm long Xience balloon. All inflations were up to 12 atmospheres. Excellent angiographic result was achieved. Patient had transient ST elevation, which resolved. Final angiograms revealed remarkably good angiographic appearance and flow without complication. Three drug- eluting stents were deployed. Between the 3.0 caliber stent and the 2.2 caliber stent there was a gap with a diagonal branch and this was at a very acute bend and the lesion in this area is no more than 30%. Excellent angiographic result without complication was achieved. The sheath was sutured and she was sent to the room in a stable condition. She received Angiomax bolus and infusion and also received Brilinta 180 mg. Moderate conscious sedation time was 1 hour and 13 minutes. Patient was monitored closely with oxygen saturation, hemodynamics and EKG. She was administered a combination of fentanyl, Versed and Benadryl. Results were discussed with the patient and family and I expect that she will be discharged tomorrow if she remains stable. She also has a right coronary artery lesion, which will be looked at at a later date. I will be looking at the proximal RCA lesion, which has a moderate lesion. We will do an FFR of this and the PDA lesion also will require intervention, but I will do this after 2 or 3 weeks and then I will assess the patency of LAD prior to this intervention. This was discussed with the patient and family. MMODL / IJN: [id number] /
--- NOTE | 2018-01-03 11:36 | LTR ---
January 03, [address] English: Thank you for the opportunity to participate in the care of Mrs. Lozoya. Please find enclosed my detailed PTCA report for your records. I performed stenting of a very complex calcified mid LAD. Three drug-eluting stents were used. Her RCA lesion will be addressed at a later date. Thank you for your referral and please call for questions. With kindest regards. Sincerely yours, MD KATHERINE Bishop / GEOVANNAN: [id number] /
[2018-01-03 17:55] LABS: Anisocytosis Slight; Basophils % (A) 0 %; Eosinophils # (A) 0.1 k/uL (0-0.7); Eosinophils % (A) 1 %; HCT 30.3 % (34.0-46.0); Hypochromasia Slight; Lymphocytes # (A) 1.2 k/uL (1.0-4.8); Lymphocytes % (A) 12 %; MCH 26.6 pg (25.0-35.0); MCHC 31.9 g/dL (31.0-37.0); MCV 83.4 fL (80.0-100.0); Mean Platelet Volume 6.6; Monocytes # (A) 0.5 k/uL (0-1.0); Monocytes % (A) 5 %; Neutrophils # (A) 7.8 k/uL (1.3-7.7); Neutrophils % (A) 80 %; Platelet Count 209 k/uL (150-450); RBC 3.64 m/uL (3.80-5.40); WBC 9.8 k/uL (3.8-10.6)
[2018-01-03] MEDS: ALPRAZolam 0.5 MG TAB PO PRN ×2 (17:58→23:58)
[2018-01-03 18:02] LABS: HGB 9.7 gm/dL (11.4-16.0)
[2018-01-03] MEDS: CARVEDILOL 3.125 MG TAB PO SCH (18:11)
[2018-01-03] MEDS ORDERED: MORPHINE SULFATE 4 MG/ML SYRINGE IVP STA (20:16)
[2018-01-03] MEDS ORDERED: ATORVASTATIN 40 MG TAB PO SCH (21:00)
[2018-01-03] MEDS ORDERED: TICAGRELOR 90 MG TAB PO SCH (21:00)
[2018-01-03] MEDS ORDERED: LISINOPRIL 20 MG TAB PO SCH (21:00)
[2018-01-03] MEDS: CALCIUM CARB-VIT D 500MG-200UN 1 EACH TAB PO SCH (21:28)
[2018-01-03] MEDS: VITAMIN E (DL,TOCOPHERYL ACET) 400 UNIT CAP PO SCH (21:28)
[2018-01-04 04:12] VITALS: RESP 16
[2018-01-04 06:50] LABS: Anisocytosis Slight; Basophils % (A) 0 %; Eosinophils # (A) 0.2 k/uL (0-0.7); Eosinophils % (A) 3 %; HCT 28.2 % (34.0-46.0); HGB 9.3 gm/dL (11.4-16.0); Lymphocytes # (A) 1.9 k/uL (1.0-4.8); Lymphocytes % (A) 26 %; MCH 26.8 pg (25.0-35.0); MCHC 33.2 g/dL (31.0-37.0); MCV 80.7 fL (80.0-100.0); Mean Platelet Volume 7.3; Monocytes # (A) 0.5 k/uL (0-1.0); Monocytes % (A) 7 %; Neutrophils # (A) 4.5 k/uL (1.3-7.7); Neutrophils % (A) 63 %; Platelet Count 195 k/uL (150-450); RBC 3.49 m/uL (3.80-5.40); RDW 17.6 % (11.5-15.5); WBC 7.2 k/uL (3.8-10.6)
[2018-01-04] MEDS: CARVEDILOL 3.125 MG TAB PO SCH (06:58)
[2018-01-04] MEDS ORDERED: FERROUS SULFATE 325 MG TAB PO STA (07:21)
[2018-01-04 07:37] LABS: Anion Gap 9 mmol/L; Blood Urea Nitrogen 20 mg/dL (7-17); Calcium 8.5 mg/dL (8.4-10.2); Carbon Dioxide 25 mmol/L (22-30); Chloride 107 mmol/L (98-107); Glucose 84 mg/dL (74-99); Potassium 4.3 mmol/L (3.5-5.1); Sodium 141 mmol/L (137-145)
[2018-01-04 08:02] VITALS: BP 123/51; PULSE 72; TEMP 97.6
--- NOTE | 2018-01-04 08:19 | DS ---
DISCHARGE SUMMARY DATE OF ADMISSION: 01/03/2018. DATE OF DISCHARGE: 01/04/2018. DIAGNOSES: 1. Unstable angina. 2. Status post breast cancer with chemotherapy. 3. Ischemic cardiomyopathy. PROCEDURES PERFORMED: PTCA and stenting of left anterior descending coronary artery in the midportion with 3 drug-eluting stents. Orbital atherectomy was performed and then stenting was performed. Mrs Christine Lozoya is a lady with significant multivessel disease, who is also recovering from breast cancer after chemotherapy, was found to have a significant anterior wall hypokinesia, was evaluated by Dr. Sanchez and she underwent a cardiac cath a week ago. Because of very heavily calcified long lesion in the mid LAD, she was brought in for the procedure electively. PCI of mid LAD was performed after orbital atherectomy with excellent results. Post procedure was complicated by a hematoma in the left groin after pulling the sheath. This happened in the extended stay unit. After some blood loss and moderate-sized hematoma, good hemostasis was secured. I came in and saw her last night. Throughout the night, she was comfortable and this morning she is asymptomatic and is able to ambulate without symptoms. There is no bruit. Blood pressure is 118/70, pulse rate is about 60 per minute. No JVD or carotid bruit. S1, S2 heard normally. A short systolic murmur noted. Lungs are clear. Abdomen is soft. Right groin has a hematoma, but there is no bruit. Central nervous system is normal. EKG revealed sinus mechanism with lateral wall T-wave changes which are nonspecific. Laboratory data is good. Hemoglobin is down to 9.3, down about 1.6 grams. I am recommending that we perform ultrasound of the right groin and I do not expect there will be pseudoaneurysm, this is probably a hematoma. She can be discharged on aspirin, Plavix, Lipitor, and beta blockers. She will be seen by Dr. Sanchez in one week. Discharge instructions regarding activity, diet and medications were given. MMODL / IJN: [id number] /
[2018-01-04] MEDS: VITAMIN E (DL,TOCOPHERYL ACET) 400 UNIT CAP PO SCH (08:53)
[2018-01-04] MEDS: CALCIUM CARB-VIT D 500MG-200UN 1 EACH TAB PO SCH (08:54)
[2018-01-04] MEDS ORDERED: ASPIRIN 81 MG PO SCH (09:00)
[2018-01-04] MEDS ORDERED: ESCITALOPRAM 20 MG TAB PO SCH (09:00)
[2018-01-04] MEDS ORDERED: CLOPIDOGREL 75 MG TAB PO SCH (09:00)
[2018-01-04] MEDS ORDERED: ISOSORBIDE MONONITRATE ER 30 MG TAB.ER.24H PO SCH (09:00)
[2018-01-04] MEDS ORDERED: NON-FORMULARY DRUG (Aspirin [Adult Low Dose Aspirin Ec] 81 MG) PO SCH (09:00)
[2018-01-04] MEDS ORDERED: ASCORBIC ACID 500 MG TAB PO SCH (09:00)
[2018-01-04] MEDS ORDERED: NON-FORMULARY DRUG (Biotin [Biotin] 300 MCG) PO SCH (09:00)
--- NOTE | 2018-01-04 09:01 | US ---
EXAMINATION TYPE: US lower ext pseudo artery RT DATE OF EXAM: 01/04/2018 COMPARISON: NONE CLINICAL HISTORY: rule out pseudoaneurysm. Heart cath with right groin approach yesterday EXAM PERFORMED: Grayscale and color Doppler duplex imaging performed of the groin, post cardiac rosetta ter to assess for pseudoaneurysm. SIDE PERFORMED: Right Color and Waveform Doppler performed to assess for the presence of pseudoaneurysm; Is there ultrasound evidence of a pseudoaneurysm: No Is there evidence of AV shunting: No Is there a fluid collection present: Yes, 5.8 x 1.2 x 6.5 cm *Results called to Dr Ma at time of exam IMPRESSION: No diagnostic evidence of pseudoaneurysm. There is a 5.8 x 6.5 cm fluid collection is nonspecific pot entially could represent hematoma. Correlate clinically.
[2018-01-04 09:51] VITALS: BMI 33.2
[2018-01-04] MEDS ORDERED: FUROSEMIDE 20 MG TAB PO PRN (11:10)
[2018-01-04] MEDS ORDERED: MULTIVITAMINS, THERA 1 EACH TAB PO SCH (12:00)
== END 2018-01-04 12:30 | disposition home or self-care (01) ==
LOC: CATHCVL 07:21 → 6SEL 16:23 → CATHCVL 01-04 12:30 → 6SEL 01-04 12:31
PROVIDERS: ATTEND Internal Medicine Interventional Cardiology
DX: I25.110 Atherosclerotic heart disease of native coronary artery with unstable angina pectoris (principal); I25.82 Chronic total occlusion of coronary artery; I97.630 Postprocedural hematoma of a circulatory system organ or structure following a cardiac catheterization; R00.1 Bradycardia, unspecified; I44.7 Left bundle-branch block, unspecified; I25.5 Ischemic cardiomyopathy; I10 Essential (primary) hypertension; C50.919 Malignant neoplasm of unspecified site of unspecified female breast; Z92.21 Personal history of antineoplastic chemotherapy; Z82.49 Family history of ischemic heart disease and other diseases of the circulatory system; Z88.2 Allergy status to sulfonamides; Z79.82 Long term (current) use of aspirin; Z79.899 Other long term (current) drug therapy
CPT/HCPCS: 80048; 85025 ×2; 93975; 93926; C9602; C1769 ×5; C1887 ×2; C1725; C1894; C1874; C1714; J2001; J2250; J2270; J1200; J3010; J0583; Q9967

== ENCOUNTER → 2018-03-02 | Outpatient (CLI) | payer MEDICARE ==
[2018-03-02 14:27] LABS: Anion Gap 8 mmol/L; Anisocytosis Slight; Blood Urea Nitrogen 20 mg/dL (7-17); Calcium 9.3 mg/dL (8.4-10.2); Carbon Dioxide 29 mmol/L (22-30); Chloride 103 mmol/L (98-107); Glucose 92 mg/dL (74-99); MCH 29.8 pg (25.0-35.0); MCHC 32.5 g/dL (31.0-37.0); Mean Platelet Volume 6.6; Platelet Count 226 k/uL (150-450); Potassium 4.9 mmol/L (3.5-5.1); RBC 4.25 m/uL (3.80-5.40); RDW 17.2 % (11.5-15.5); Sodium 140 mmol/L (137-145); WBC 4.5 k/uL (3.8-10.6)
[2018-03-02 14:41] LABS: HGB 12.7 gm/dL (11.4-16.0); MCV 91.6 fL (80.0-100.0)
== END | disposition home or self-care (01) ==
LOC: LABWHC1 13:15
PROVIDERS: ATTEND Internal Medicine Interventional Cardiology
DX: Z01.812 Encounter for preprocedural laboratory examination (principal); I25.10 Atherosclerotic heart disease of native coronary artery without angina pectoris
CPT/HCPCS: 36415; 80048; 85027

== ENCOUNTER 2018-03-13 09:32 | Day surgery (SDC) | payer MEDICARE ==
[2018-03-08 08:39] VITALS: BMI 30.9
[~2018-03-13 09:32] MED LIST changes: -ALPRAZolam 0.25 MG TAB PO PRN; +NITROGLYCERIN SL TABS 0.4 MG TAB SUBLINGUAL PRN
[2018-03-13] MEDS ORDERED: ASPIRIN 325 MG TAB PO ONE (10:45)
[2018-03-13] MEDS ORDERED: MIDAZOLAM 2 MG/2 ML VIAL IVP ONE (12:48)
[2018-03-13] MEDS ORDERED: diphenhydrAMINE 50 MG/ML 1 ML VIAL IVP ONE (12:48)
[2018-03-13] MEDS ORDERED: LIDOCAINE 1% (PF) 10MG/ML VIAL SQ ONE (12:48)
[2018-03-13] MEDS ORDERED: BIVALIRUDIN BOLUS 250 MG/50 ML IV ONE (12:52)
[2018-03-13] MEDS ORDERED: BIVALIRUDIN 250 MG in SODIUM CHLORIDE 0.9% 50 ML IV ONE (12:52)
[2018-03-13] MEDS ORDERED: IOPAMIDOL-370 100ML BTL INJ ONE (13:08)
[2018-03-13] MEDS ORDERED: NITROGLYCERIN 1000MCG/10ML SYRINGE INTRACORON ONE (13:10)
[2018-03-13] MEDS ORDERED: ATROPINE SULFATE 0.1 MG/ML 10ML SYRINGE IV PRN (13:15)
[2018-03-13] MEDS ORDERED: MAG HYDROX/AL HYDROX/SIMETH 30 ML CUP PO PRN (13:15)
[2018-03-13] MEDS ORDERED: ZOLPIDEM 5 MG TAB PO PRN (13:15)
[2018-03-13] MEDS ORDERED: CLOPIDOGREL 75 MG TAB PO ONE (13:15)
[2018-03-13] MEDS ORDERED: NITROGLYCERIN SL TABS 0.4 MG TAB SUBLINGUAL PRN (13:15)
[2018-03-13] MEDS ORDERED: RX INFO: IV CONTRAST WAS GIVEN 1 EACH MISC MISCELLANE PRN (13:15)
--- NOTE | 2018-03-13 14:04 | LTR ---
March 13, [address] English: Thank you for the opportunity to participate in the care of Mrs. Christine Lozoya. I am pleased to report to you that the previously stented LAD was widely patent. I performed stenting of the PDA branch of RCA as well as the proximal RCA with a drug- eluting stent. Excellent angiographic result was achieved without complication. I expect she will be discharged tomorrow if she remains stable. Thank you for your referral and please call for questions. With kindest regards. Sincerely, Windy Ma. VERITOL / IJN: [id number] /
--- NOTE | 2018-03-13 14:04 | PTCA ---
PERCUTANEOUSTRANS CORORONARY ANGIOGRAPHY DATE OF SERVICE: 03/13/2018. PROCEDURE: 1. Coronary angiography of the left anterior descending coronary artery to check patency of LAD that was stented in December of this year. 2. PTCA and stenting of proximal RCA, a dominant vessel with drug-eluting stent and stenting of PDA branch of RCA with a drug-eluting stent. PERFORMED BY: Dr. Segundo Ma. Moderate conscious sedation time was 23 minutes. Patient was administered Versed, Benadryl and oxygen saturation, hemodynamics and EKG were monitored closely. CLINICAL INFORMATION: Mrs. Christine Lozoya underwent stenting of a very complex calcified LAD performed in December of this year with excellent results. Her LV function showed remarkable improvement. She had known stenosis and significant narrowing involving the PDA branch of RCA and there was a borderline lesion in the proximal RCA and a significant lesion in the PDA branch of RCA. She was brought in for the procedure with the intent of performing FFR of RCA if the lesion was borderline. PROCEDURE NOTE: Under local anesthesia and strict aseptic precautions, a 6-[place] introducer was placed in the right femoral artery. I performed selective coronary angiography of the left system using a standard left Mega diagnostic catheter. I noted that the LAD that was stented was widely patent there with remarkably good angiographic appearance and flow. I then turned my attention to the RCA. A standard right Mega guide catheter was used to cannulate the right coronary artery. A whisper wire was used to cross the lesion in the proximal RCA and the wire was kept distally in the PDA branch of RCA. Predilatation was performed using a 2.25 caliber 12 mm long Trek balloon. I then deployed a 2.25 caliber 12 mm long Xience stent in the PDA branch. Excellent angiographic result was achieved. No significant chest pain or EKG was noted. I then deployed a 3.5 caliber 12 mm long Xience stent in the proximal RCA. I felt the lesion was at least 70% very eccentric in both the SINHALA and LECHUGA projections. I therefore did not perform FFR and instead directly performed stenting of this significant lesion and a very dominant vessel. The patient had chest pain and pre and a ST elevation involving leads 2, 3, AVF with inflation. Fourteen atmospheres pressure was used. Excellent angiographic result without complication was achieved. The sheath was sutured and patient was advised a manual pull in about 2 hours. The patient received Angiomax bolus and infusion as per protocol. She also received additional 150 mg of Plavix. She was already on aspirin and Plavix to begin with. Excellent angiographic result was achieved with 2 drug-eluting stents; 1 in the PDA branch of RCA, a 2.25 caliber 12 mm long stent and in the proximal RCA there was 3.5 12 mm long Xience stent. I expect the patient to be discharged tomorrow and will see Dr. Sanchez in one week. MMCONSTANCEL / GEOVANNAN: [id number] /
[2018-03-13] MEDS: SODIUM CHLORIDE 0.9% 1,000 ML IV SCH (17:46)
[2018-03-13 18:14] VITALS: RESP 18
[2018-03-13] MEDS ORDERED: MORPHINE SULFATE 2 MG/ML SYRINGE IVP ONE (20:32)
[2018-03-13] MEDS: CARVEDILOL 6.25 MG TAB PO SCH (20:49)
[2018-03-13] MEDS: VITAMIN E (DL,TOCOPHERYL ACET) 400 UNIT CAP PO SCH (20:49)
[2018-03-13] MEDS: CALCIUM CARB-VIT D 500MG-200UN 1 EACH TAB PO SCH (20:49)
[2018-03-13] MEDS ORDERED: ATORVASTATIN 40 MG TAB PO SCH (21:00)
[2018-03-13] MEDS ORDERED: LISINOPRIL 20 MG TAB PO SCH (21:00)
[2018-03-14] MEDS: SODIUM CHLORIDE 0.9% 1,000 ML IV SCH (02:45)
[2018-03-14] MEDS: CARVEDILOL 6.25 MG TAB PO SCH (06:04)
[2018-03-14 07:18] LABS: Basophils % (A) 1 %; Eosinophils # (A) 0.1 k/uL (0-0.7); Eosinophils % (A) 3 %; HCT 34.8 % (34.0-46.0); HGB 11.1 gm/dL (11.4-16.0); Lymphocytes # (A) 1.4 k/uL (1.0-4.8); Lymphocytes % (A) 32 %; MCH 29.1 pg (25.0-35.0); MCHC 31.7 g/dL (31.0-37.0); MCV 91.7 fL (80.0-100.0); Mean Platelet Volume 6.6; Monocytes # (A) 0.3 k/uL (0-1.0); Monocytes % (A) 8 %; Neutrophils # (A) 2.3 k/uL (1.3-7.7); Neutrophils % (A) 55 %; Platelet Count 194 k/uL (150-450); WBC 4.2 k/uL (3.8-10.6)
[2018-03-14 07:26] LABS: Anion Gap 4 mmol/L; Blood Urea Nitrogen 18 mg/dL (7-17); Calcium 8.6 mg/dL (8.4-10.2); Carbon Dioxide 28 mmol/L (22-30); Chloride 107 mmol/L (98-107); Glucose 81 mg/dL (74-99); Potassium 4.5 mmol/L (3.5-5.1); Sodium 139 mmol/L (137-145)
[2018-03-14 08:59] VITALS: BP 128/58; PULSE 57; TEMP 99
[2018-03-14] MEDS ORDERED: ASPIRIN 81 MG PO SCH (09:00)
[2018-03-14] MEDS ORDERED: ASCORBIC ACID 500 MG TAB PO SCH (09:00)
[2018-03-14] MEDS ORDERED: ESCITALOPRAM 20 MG TAB PO SCH (09:00)
[2018-03-14] MEDS ORDERED: CLOPIDOGREL 75 MG TAB PO SCH (09:00)
[2018-03-14] MEDS ORDERED: NON-FORMULARY DRUG (Biotin [Biotin] 300 MCG) PO SCH (09:00)
[2018-03-14] MEDS: VITAMIN E (DL,TOCOPHERYL ACET) 400 UNIT CAP PO SCH (09:28)
[2018-03-14] MEDS: CALCIUM CARB-VIT D 500MG-200UN 1 EACH TAB PO SCH (09:28)
--- NOTE | 2018-03-14 11:44 | DS ---
DISCHARGE SUMMARY DATE OF ADMISSION: 03/13/2018. DATE OF DISCHARGE: 03/14/2018. DIAGNOSIS: Unstable angina. PROCEDURES PERFORMED: Coronary angiography of the LAD to check patency and PTCA and stenting of proximal RCA as well as PDA branch of RCA with drug-eluting stents. Mrs. Lozoya was brought in electively for a PCI of RCA. The LAD was stented in December. This was checked and verified. LAD was widely patent with good flow. I then performed stenting of proximal RCA as well as PDA branch with 2 drug-eluting stents. Excellent angiographic result was achieved. This morning, patient is asymptomatic. She is doing well. Her EKG and labs are unremarkable. She is ambulating without any symptoms. Her right cardiac cath site is clean and dry with a good pulse. PHYSICAL EXAMINATION: Blood pressure today is 130/70, pulse rate is 62 per minute. HEENT: Unremarkable. Fundus was not examined by me. NECK: Supple. There is no JVD. I do not hear a carotid bruit. Heart exam reveals S1, S2 with a short systolic murmur at the base. Lungs are clear. Abdomen is soft. Right groin is clean and dry with a good pulse. EKG and labs are unremarkable. The patient will be discharged today and she will be seen by Dr. Sanchez in the office next week. Discharge instructions regarding activity, diet and medications were given. MMODL / IJN: [id number] /
[2018-03-14] MEDS ORDERED: FERROUS SULFATE 325 MG TAB PO SCH (12:00)
[2018-03-14] MEDS ORDERED: MULTIVITAMINS, THERA 1 EACH TAB PO SCH (12:00)
== END 2018-03-14 10:58 | disposition home or self-care (01) ==
LOC: CATHCVL 09:32 → 6SEL 13:11 → CATHCVL 03-14 10:58
PROVIDERS: ATTEND Internal Medicine Interventional Cardiology
DX: I25.10 Atherosclerotic heart disease of native coronary artery without angina pectoris (principal); I10 Essential (primary) hypertension; I25.5 Ischemic cardiomyopathy; Z95.5 Presence of coronary angioplasty implant and graft; R01.1 Cardiac murmur, unspecified; C50.919 Malignant neoplasm of unspecified site of unspecified female breast; Z82.49 Family history of ischemic heart disease and other diseases of the circulatory system; Z79.02 Long term (current) use of antithrombotics/antiplatelets; Z79.82 Long term (current) use of aspirin; Z79.899 Other long term (current) drug therapy; Z88.2 Allergy status to sulfonamides
CPT/HCPCS: 80048; 85025; C9600; C1769 ×2; C1887; C1725; C1894; C1874; J2250; J1200; J2270; J1642; J0583; J2001; Q9967

== ENCOUNTER 2018-12-06 06:30 | Day surgery (SDC) | payer MEDICARE ==
[2018-12-04 11:05] VITALS: BMI 33.8
[~2018-12-06 06:30] MED LIST changes: -ASPIRIN 325 MG TAB PO STA; -ATORVASTATIN 80 MG TAB PO STA; +LACTATED RINGERS 1,000 ML IV SCH; +LIDOCAINE 1% 20 ML VIAL (10MG/ML) FOR IV START INTRADERMA PRN; +MOXIFLOXACIN HCL 0.5% DROPS 3 ML BTL OP ONE; -NITROGLYCERIN SL TABS 0.4 MG TAB SUBLINGUAL PRN; -SODIUM CHLORIDE 0.9% 1,000 ML in EMPTY BAG 1 BAG IV ONE; +TETRACAINE 0.5% OPHTH (PF) DROPS 4 ML BTL OP ONE; +TIMOLOL 0.5% OPHTH DROPS 5 ML BTL OP ONE
[2018-12-06] MEDS: CYCLOPENTOLATE 1% OPHTH SOLN 2 ML BTL OP ONE ×3 (06:53→07:12)
[2018-12-06] MEDS: PHENYLEPHRINE 2.5% OPHTH DRP 2ML OP NR ×3 (07:00→07:15)
[2018-12-06 07:08] VITALS: RESP 16; TEMP 98.2
[2018-12-06 07:13] LABS: Glucose,Whole Blood 89 mg/dL (75-99)
[2018-12-06] MEDS ORDERED: fentaNYL (PF) 50 MCG/ML 2 ML AMP ONE (07:19)
[2018-12-06] MEDS ORDERED: MIDAZOLAM 2 MG/2 ML VIAL ONE (07:19)
[2018-12-06] MEDS ORDERED: EPINEPHrine (PF) 0.3 ML in BALANCED SALT IRRIG SOLN COMB2 500 ML IRRIGATION ONE (07:40)
[2018-12-06] MEDS ORDERED: HYALURONATE SODIUM INTRAOCULAR 1 EACH SYRINGE (12MG/ML) INTRAOCULA ONE (07:42)
[2018-12-06] MEDS ORDERED: BALANCED SALT IRRIG SOLN COMB2 15 ML IRRIG.SOLN INTRAOCULA ONE (07:43)
[2018-12-06] MEDS ORDERED: LIDOCAINE 1% (PF) 10MG/ML VIAL MISCELLANE ONE (07:43)
--- NOTE | 2018-12-06 07:54 | P.PCN ---
Date of Procedure: 12/06/18 Preoperative Diagnosis: NS & CS & PSC Postoperative Diagnosis: NS & cS & PSC Procedure(s) Performed: PIOL, OD Implants: PCB00 20.00 Anesthesia: MAC Surgeon: Yousif Fuentes Estimated Blood Loss (ml): 0 Pathology: none sent Condition: stable Disposition: same day Indications for Procedure: blurry vision Operative Findings: No complications
[2018-12-06 08:13] VITALS: BP 128/67; PULSE 46
--- NOTE | 2018-12-06 13:03 | OP ---
OPERATIVE REPORT DATE OF SURGERY: December 06, 2018. SURGEON: Yousif Fuentes MD PREOPERATIVE DIAGNOSIS: Nuclear sclerosis, cortical sclerosis, posterior subcapsular cataract. POSTOPERATIVE DIAGNOSIS: Nuclear sclerosis, cortical sclerosis, posterior subcapsular cataract. PROCEDURE: Phacoemulsification of cataract and intraocular lens implant of the right eye. ESTIMATED BLOOD LOSS: Zero. SPECIMEN TAKEN: None. NARRATIVE: After obtaining the appropriate consent, the patient was brought to the operating room where the patient was placed under cardiac monitoring and prepped and draped in the usual sterile manner. At the 11 o'clock position a 15 degree super sharp blade was used to create a paracentesis followed by instillation of 1% Xylocaine MPF 50:50 mix with BSS into the anterior chamber. This was followed by Amvisc to stabilize the anterior chamber. At the 9 o'clock position a self-sealing corneal flap incision was created using 2.8 mm yeimi keratome. A cystotome was used to initiate a continuous tear capsulorrhexis which was completed with the Utrata forceps. A Binkhorst cannula was used to hydrodissect the lens nucleus followed by hydrodelineation. Phacoemulsification of the lens was performed utilizing phaco chop in 11.89 seconds at 10% power. The remaining cortical material was removed using the irrigation aspiration mode followed by additional 1% Xylocaine MPF into the anterior chamber followed by viscoelastic to stabilize the capsular bag. An FLIP PCB00 20.0 diopters posterior chamber lens was placed into the capsular bag without difficulty. The remaining viscoelastic material was removed from the anterior chamber with the irrigation/aspiration. Balanced salt solution was used to normalize the intraocular pressure. The incision was checked for watertight integrity. The patient then received two drops of 0.5% timolol followed by two drops Vigamox, was lightly patched and shielded in the usual manner. There were no complications from the procedure. The patient tolerated the procedure well and was returned to recovery in good condition. MMODL / IJN: [id number] /
== END 2018-12-06 08:46 | disposition home or self-care (01) ==
LOC: OR 06:30
PROVIDERS: ATTEND Ophthalmology
DX: H25.11 Age-related nuclear cataract, right eye (principal); H25.011 Cortical age-related cataract, right eye; H25.041 Posterior subcapsular polar age-related cataract, right eye; H52.223 Regular astigmatism, bilateral; H52.4 Presbyopia; Z88.2 Allergy status to sulfonamides; Z91.018 Allergy to other foods; E11.9 Type 2 diabetes mellitus without complications; F32.9 Major depressive disorder, single episode, unspecified; I10 Essential (primary) hypertension; Z79.4 Long term (current) use of insulin; Z79.82 Long term (current) use of aspirin; Z79.899 Other long term (current) drug therapy
CPT/HCPCS: 66984; C1780; J2250; J0171; J3010; J2001

== ENCOUNTER 2020-12-29 07:25 | Day surgery (SDC) | payer MEDICARE ==
[2020-12-25 11:33] VITALS: BMI 38.4
[~2020-12-29 07:25] MED LIST changes: +LIDOCAINE 1% (10MG/ML) FOR IV START INTRADERMA PRN; -LIDOCAINE 1% 20 ML VIAL (10MG/ML) FOR IV START INTRADERMA PRN; -MOXIFLOXACIN HCL 0.5% DROPS 3 ML BTL OP ONE; -TETRACAINE 0.5% OPHTH (PF) DROPS 4 ML BTL OP ONE; -TIMOLOL 0.5% OPHTH DROPS 5 ML BTL OP ONE
[2020-12-29 07:54] VITALS: TEMP 98.5
[2020-12-29 08:01] LABS: Glucose,Whole Blood 102 mg/dL (75-99)
[2020-12-29] MEDS ORDERED: LIDOCAINE 1% INJ 10MG/ML (20 ML MDV) ONE (08:04)
[2020-12-29] MEDS ORDERED: PROPOFOL 10 MG/ML 20 ML VIAL IV ONE (08:04)
--- NOTE | 2020-12-29 08:26 | P.PCN ---
Date of Procedure: 12/29/20 Procedure(s) Performed: BRIEF HISTORY: Patient is a 70-year-old pleasant female scheduled for an elective colonoscopy as a part of evaluation of iron deficiency anemia. She had an attempted colonoscopy by in 2020 and could not be completed beyond the sigmoid colon. PROCEDURE PERFORMED: Colonoscopy. PREOPERATIVE DIAGNOSIS: Iron deficiency anemia and recent incomplete colonoscopy. IV sedation per Anesthesia. PROCEDURE: After informed consent was obtained, the patient, was brought into the endoscopy unit. IV sedation was administered by Anesthesia under continuous monitoring. Digital rectal examination was normal. Initially the Olympus CF-160 flexible video colonoscope was then inserted in the rectum, gradually advanced into the cecum with moderate difficulty. Careful examination was performed as the scope was gradually being withdrawn. Ileocecal valve and the appendiceal orifice were visualized and appeared normal. Prep was excellent. Mucosa of the cecum, ascending colon, transverse colon, descending colon, sigmoid colon, and rectum appeared normal. Scattered sigmoidal reticulosis seen. Retroflexion was performed in the rectum and no lesions were seen. The patient tolerated the procedure well. IMPRESSION: Normal-appearing colon from rectum to cecum with no evidence of colitis or colorectal neoplasia Scattered sigmoid diverticulosis. RECOMMENDATIONS: Findings of this examination were discussed with the patient as well as a family. She was advised to have a repeat screening colonoscopy in 10 years.
[2020-12-29 08:36] VITALS: RESP 18
[2020-12-29 08:44] VITALS: BP 100/60; PULSE 78
== END 2020-12-29 08:59 | disposition home or self-care (01) ==
LOC: ORWHC2ENDO 07:25
PROVIDERS: ATTEND Internal Medicine Gastroenterology
DX: D50.9 Iron deficiency anemia, unspecified (principal); K57.30 Diverticulosis of large intestine without perforation or abscess without bleeding; I10 Essential (primary) hypertension; I25.10 Atherosclerotic heart disease of native coronary artery without angina pectoris; E78.5 Hyperlipidemia, unspecified; E11.9 Type 2 diabetes mellitus without complications; Z79.02 Long term (current) use of antithrombotics/antiplatelets; Z79.82 Long term (current) use of aspirin; Z79.84 Long term (current) use of oral hypoglycemic drugs; Z79.899 Other long term (current) drug therapy; Z88.2 Allergy status to sulfonamides; Z91.018 Allergy to other foods; Z95.5 Presence of coronary angioplasty implant and graft; Z85.3 Personal history of malignant neoplasm of breast
CPT/HCPCS: 45378; J2001; J2704

== ENCOUNTER → 2022-02-06 | Outpatient (CLI) | payer MEDICARE ==
--- NOTE | 2022-02-06 13:09 | MR ---
EXAMINATION TYPE: MR lumbar spine wo con DATE OF EXAM: 02/06/2022 COMPARISON: None HISTORY: Extreme low back pain that radiates down both legs for 4 months. TECHNIQUE: Multiplanar, multisequence images of the lumbar spine were acquired without IV contrast. Findings: The lumbar vertebral segments are normal in height and there is no evidence of fracture. There is a slight anterolisthesis of L4 and L5. There is marked degenerative disc disease at the L1-2 and L3-4 levels with there is marked disc space narrowing and discogenic endplate changes. There is moderate degenerative disease at the L4-5 level where there is moderate disc space narrowing. At the L4-5 level there is a large disc herniation with extrusion resulting in disc material posterio r to the L4 vertebral segment. In combination with a large disc fragment and thickening of ligamentum flavum, there is a severe spinal stenosis at the L4-5 level. The conus medullaris and cauda equina appear normal although there is mild buckling of the nerve root s superior to the L4-5 stenosis. On the right, there is severe neural foraminal stenosis at L4-5 there is severe foraminal stenosis at the L3-4 and L4-5. The visualized portion the sacrum and SI joints are normal. There is marked facet arthropathy throughout the lumbar region. The paraspinal soft tissues are unremarkable. IMPRESSION:. 1. Multilevel severe degenerative disease. 2. Mild anterolisthesis of L4-L5. 3. Large L4-5 disc herniation and extrusion with severe spinal stenosis at the L4-5 level. 4. Severe multilevel bilateral neural foraminal stenosis as described above. 5. Marked facet arthropathy throughout the lumbar region.
== END | disposition home or self-care (01) ==
LOC: RADMRIMAIN 11:55
PROVIDERS: ATTEND Internal Medicine
DX: M51.36 Other intervertebral disc degeneration, lumbar region (principal); M43.16 Spondylolisthesis, lumbar region; M47.816 Spondylosis without myelopathy or radiculopathy, lumbar region; M99.73 Connective tissue and disc stenosis of intervertebral foramina of lumbar region
CPT/HCPCS: 72148

== ENCOUNTER → 2022-03-02 | Outpatient (CLI) | payer MEDICARE ==
--- NOTE | 2022-03-02 12:50 | CA ---
Transthoracic Echo Report Name: Christine Lozoya Age: 71 Gender: F : 1950 Exam Date: 03/02/2022 10:52 Exam Location: [facility] Ht (in): 63 Wt (lb): 220 Ordering Physician: Ruel English MD Attending/Referring Phys: Hand Glove Cleaner Mirtha Mishra RDCS Procedure CPT: Indications: Z01.810 Cardiac Hx: Technical Quality: Good Contrast 1: Total Dose (mL): Contrast 2: Total Dose (mL): MEASUREMENTS (Male / Female) Normal Values 2D ECHO LV Diastolic Diameter PLAX 4.3 cm 4.2 - 5.9 / 3.9 - 5.3 cm LV Systolic Diameter PLAX 2.5 cm IVS Diastolic Thickness 1.0 cm 0.6 - 1.0 / 0.6 - 0.9 cm LVPW Diastolic Thickness 1.0 cm 0.6 - 1.0 / 0.6 - 0.9 cm LV Relative Wall Thickness 0.5 M-MODE Aortic Root Diameter MM 3.2 cm LA Systolic Diameter MM 3.2 cm LA Ao Ratio MM 1.0 MV E Point Septal Separation 3.0 cm AV Cusp Separation MM 1.4 cm DOPPLER AV Peak Velocity 137.0 cm/s AV Peak Gradient 7.5 mmHg MV Area PHT 4.2 cm??? MR Peak Velocity 126.7 cm/s MR Peak Gradient 6.4 mmHg Mitral E Point Velocity 59.9 cm/s Mitral A Point Velocity 90.1 cm/s Mitral E to A Ratio 0.7 MV Deceleration Time 178.8 ms TR Peak Velocity 191.1 cm/s TR Peak Gradient 14.6 mmHg Right Ventricular Systolic Press 19.2 mmHg FINDINGS Left Ventricle Normal Left ventricular size, wall thickness, systolic function with no obvious regional wall motion abnormalities. Low-normal left ventricular systolic. Right Ventricle The right ventricle is normal in size and function. Right Atrium The right atrium is normal in size. Left Atrium The left atrium is normal in size. Mitral Valve Structurally normal mitral valve without significant stenosis or prolapse. There is mild mitral regurgitation. Mitral valve thickened. Aortic Valve Structurally normal aortic valve without significant sclerosis or stenosis. There is no aortic regurgitation. Focal thickening of the aortic valve cusps. Tricuspid Valve Structurally normal tricuspid valve without significant stenosis. Pulmonary artery systolic pressure is normal. Trace tricuspid regurgitation. Pulmonic Valve Structurally normal pulmonic valve without significant stenosis. There is no pulmonic regurgitation. Pericardium Normal pericardium without effusion. Aorta Normal aortic root dimension. CONCLUSIONS Technically difficult study for interpretation Low-normal left ventricular systolic function was EF around 50% Previewed by: Dr. Juni Barone MD (Electronically Signed) Final Date: 02 March 2022 12:50
== END | disposition home or self-care (01) ==
LOC: RADECHMAIN 10:39
PROVIDERS: ATTEND Internal Medicine
DX: Z01.810 Encounter for preprocedural cardiovascular examination (principal); I07.1 Rheumatic tricuspid insufficiency
CPT/HCPCS: 93306

== ENCOUNTER → 2022-03-03 | Outpatient (CLI) | payer MEDICARE ==
[~2022-03-03] MED LIST changes: -LACTATED RINGERS 1,000 ML IV SCH; -LIDOCAINE 1% (10MG/ML) FOR IV START INTRADERMA PRN; +REGADENOSON 0.4 MG/5 ML SYRINGE IV PRN
--- NOTE | 2022-03-03 12:49 | NM ---
EXAMINATION TYPE: NM stress lexiscan cardiolite DATE OF EXAM: 03/03/2022 COMPARISON: NONE HISTORY: Coronary artery disease, Z01.810 TECHNIQUE: After the intravenous administration of 9.7 mCi Tc 99m Sestamibi - Cardiolite resting SPE CT images acquired 55 minutes post injection. The patient received 0.4mg Lexiscan, 25.6 mCi Tc 99m Sestamibi - Stress images obtained [address] injection FINDINGS: Review of stress and rest SPECT images demonstrates decreased uptake along the inferior wall the left ventricle extending into the septal and lateral hickey on stress and rest imaging. There is decreased uptake along the septal left ventricle on stress as compared to rest imaging towards the base of the heart and decreased uptake along the septal and lateral hickey noted on stress as compared to rest im ages. Gated analysis shows normal wall motion with an estimated left ventricular ejection fraction o f 57 %. Question cardiac enlargement. 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 A Yellow level critical message alert has been initiated for Ruel English MD via the [employer] Critical Results System on 03/03/2022 12:47 PM. This message alert has been sent to Ruel English MD via the preferences provided by the clinician for the receipt of Radiology Critical Findings. Message ID [id number].
--- NOTE | 2022-03-03 13:26 | CA ---
Lexiscan Nuclear Stress Test Report Name: Christine Lozoya Exam Date: 03/03/2022 10:44 Exam Location: [facility] Ht (in): 64 Wt (lb): 220 BSA: 2.04 Ordering Phys: Ruel English MD Referring Phys: Amador, Technologist: PHYLLIS,, Age: 71 Gender: F : 1950 Procedure CPT: Indications: Z01.810 ENCOUNTER FOR PREPROCEDURAL CARDIOVASCULAR ICD-10 Codes: Patient History: HTN, DM, HIGH CHOL, FAMILY HX, CATH, PTCA, 7 VESSELS Medications: Meds past 24 hrs: Pretest Chest Pain: STRESS TEST Lexiscan Protocol Exercise Duration (min:sec): 02:[address] Depressions (mm): Angina Score: Cali Score: Resting HR (bpm): 61 Peak HR (bpm): 79 Resting BP (mmHg): 142 / 74 Peak BP (mmHg): 142 / 72 MPHR: 151 Target HR: 128 % MPHR: 52 METS: 1.0 Total Dose: Peak Dose: Atropine: Double Product: 56400 BP Response: Stress Termination: Reached target heart rate Stress Symptoms: Stress Summary: ECG ANALYSIS Resting ECG: Stress ECG: CONCLUSIONS Nondiagnostic echocardiogram stress testing and response to Lexiscan Please follow-up on the Cardiolite portion Dr. Juni Barone MD (Electronically Signed) Final Date: 03 March 2022 13:26
== END | disposition home or self-care (01) ==
LOC: RADNMMAIN 09:00
PROVIDERS: ATTEND Internal Medicine
DX: Z01.810 Encounter for preprocedural cardiovascular examination (principal); R94.31 Abnormal electrocardiogram [ECG] [EKG]
CPT/HCPCS: 93017; 78452; A9500; J2785

== ENCOUNTER → 2022-03-15 | Outpatient (CLI) | payer MEDICARE ==
[2022-03-15 13:19] LABS: INR 0.9 (<1.2); Partial Thromboplastin Time 22.7 sec (22.0-30.0); Prothrombin Time 10.1 sec (9.0-12.0)
[2022-03-15 18:41] LABS: Basophils # (A) 0.04 X 10*3/uL (0.00-0.10); Basophils % (A) 0.8 %; Eosinophils # (A) 0.12 X 10*3/uL (0.04-0.35); Eosinophils % (A) 2.3 %; HCT 42.1 % (37.2-46.3); Immature Grans, Automated 0.4 %; Lymphocytes % (A) 26.9 %; MCH 29.4 pg (27.0-32.0); MCHC 30.9 g/dL (32.0-37.0); MCV 95.2 fL (80.0-97.0); Mean Platelet Volume 9.5 fL (9.5-12.2); Monocytes # (A) 0.48 X 10*3/uL (0.20-1.00); Monocytes % (A) 9.2 %; NRBC Per 100 WBC 0 /100 WBCS (0.0-0.0); Neutrophils # (A) 3.14 X 10*3/uL (1.80-7.70); Neutrophils % (A) 60.4 %; Platelet Count 245 X 10*3/uL (140-440); RBC 4.42 X 10*6/uL (4.10-5.20); RDW 14.4 % (11.5-14.5)
[2022-03-15 18:51] LABS: African American GFR (CKD) 66.6 (60.0-200.0); Albumin 4.5 g/dL (3.8-4.9); Albumin/Globulin Ratio 2.25 (1.60-3.17); Anion Gap 12.9 mmol/L (10.00-18.00); BUN/Creat Ratio 20.3 Ratio (12.00-20.00); Blood Urea Nitrogen 20.3 mg/dL (9.0-27.0); Calcium 9.5 mg/dL (8.7-10.3); Carbon Dioxide 28.1 mmol/L (20.0-27.5); Non-African American GFR(CKD) 57.4 (60.0-200.0); Potassium 4.3 mmol/L (3.5-5.5); Prealbumin 32.2 mg/dL (18.0-42.0); Total Bilirubin 0.3 mg/dL (0.30-1.20); Total Protein 6.5 g/dL (6.2-8.2)
[2022-03-15 20:06] LABS: Appearance,Urine Clear (Clear); Bilirubin,Urine Negative (Negative); Blood,Urine Negative (Negative); Color,Urine Yellow (Yellow); Ketones,Urine Negative (Negative); Nitrite,Urine Negative (Negative); PH, Urine 5.5 (5.0-8.0); Specific Gravity,Urine 1.022 (1.001-1.030)
[2022-03-15 20:13] LABS: Bacteria,Urine None Seen /HPF (None Seen)
== END | disposition home or self-care (01) ==
LOC: LABWHC1 11:51
PROVIDERS: ATTEND Internal Medicine Interventional Cardiology
DX: Z01.812 Encounter for preprocedural laboratory examination (principal); I10 Essential (primary) hypertension; I25.10 Atherosclerotic heart disease of native coronary artery without angina pectoris
CPT/HCPCS: 36415; 80053; 81001; 83036; 84134; 85025; 85610; 85730; 87070

== ENCOUNTER → 2022-05-27 | Outpatient (CLI) | payer MEDICARE ==
--- NOTE | 2022-05-28 09:09 | US ---
EXAMINATION TYPE: US arterial LE single level DATE OF EXAM: 05/27/2022 10:50 AM CLINICAL HISTORY: I73.9 PERIPHERAL VASCULAR DISEASE, UNSPECIFIED. Doppler Waveforms: Right: Multiphasic Left: Multiphasic Pressure Gradients: No evident gradient Ankle-Brachial Indices: Right: 1.21 Left: 1.20 Toe Brachial Indices: Right: 0.26 Left: 0.48 IMPRESSION: Normal ankle-brachial indices
== END | disposition home or self-care (01) ==
LOC: RADUSWWP 10:05
PROVIDERS: ATTEND Internal Medicine
DX: I73.9 Peripheral vascular disease, unspecified (principal)
CPT/HCPCS: 93922

== ENCOUNTER → 2023-01-20 | Outpatient (CLI) | payer MEDICARE ==
--- NOTE | 2023-01-20 09:37 | MM ---
Reason for Exam: Follow-up at short interval from prior study. Last mammogram was performed 6 year(s) and 2 month(s) ago. Patient History: Menarche at age 14. First Full-Term at age 26. Postmenopausal. Other cancer, age 59. Previous chest radiation therapy at age 59. Patient used Hormonal Contraceptives for 20 years. Maternal cousin had breast cancer. Risk Values: Jeannie 5 year model risk: 1.5%. NCI Lifetime model risk: 4.5%. Prior Study Comparison: 01/03/2013 Left Diagnostic Mammogram, [facility]. 08/15/2014 Bilateral Diagnostic Mammogram, [facility]. 11/04/2016 Bilateral Screening Mammogram, [facility]. Tissue Density: Right: There are scattered fibroglandular densities. Findings: Analyzed By CAD. Scattered benign oil cyst and vascular calcifications. Unchanged intramammary lymph node upper outer quadrant right breast. Injection port noted posteriorly on the MLO view. No significant change from prior exams. Overall Assessment: Benign, BI-RAD 2 Management: Screening Mammogram of the right breast in 1 year. . Results were given to the patient verbally at the time of exam. Patient should continue monthly self-breast exams. A clinical breast exam by your physician is recommended on an annual basis. This exam should not preclude additional follow-up of suspicious palpable abnormalities. Note on Jeannie scores and lifetime risk: 1. A Jeannie score greater than 3% is considered moderate risk. If this is the case, consider specialist referral to assess eligibility for a risk reducing agent. 2. If overall lifetime risk for the development of breast cancer is 20% or higher, the patient may qualify for future screening with alternating mammogram and breast MRI. Electronically signed and approved by: Gauri Crane M.D. Radiologist
== END | disposition home or self-care (01) ==
LOC: RADMAMWWP 09:00
PROVIDERS: ATTEND Internal Medicine
DX: C50.911 Malignant neoplasm of unspecified site of right female breast (principal); Z78.0 Asymptomatic menopausal state; Z80.3 Family history of malignant neoplasm of breast
CPT/HCPCS: 77065; G0279; 77061

== ENCOUNTER 2024-07-04 06:40 | Day surgery (SDC) | payer MEDICARE ==
[2024-07-04 07:17] VITALS: TEMP 97.6
[2024-07-04] MEDS: IV FLUID CONTINUATION 1,000 ML IV ONE (07:38)
[2024-07-04] MEDS: LACTATED RINGERS 1,000 ML IV SCH (07:39)
[2024-07-04] MEDS ORDERED: LIDOCAINE 2% (PF) 20 MG/ML 5 ML VIAL ONE (07:44)
[2024-07-04] MEDS ORDERED: PROPOFOL 10 MG/ML 20 ML VIAL IV ONE (07:44)
--- NOTE | 2024-07-04 08:20 | P.PCN ---
Date of Procedure: 07/04/24 Procedure(s) Performed: Brief history: Patient is a pleasant 73-year-old white female scheduled for an elective upper endoscopy as well as colonoscopy as a part of evaluation of severe symptomatic iron deficiency anemia with a hemoglobin of 6 g/dL requiring clearance of PRBC transfusion. She denies any GI symptoms. Procedure performed: Esophagogastroduodenoscopy with biopsy Colonoscopy after descending colon Preoperative diagnosis: Severe symptomatic iron deficiency anemia Anesthesia: [facility] [place] Procedure: After informed consent was obtained from the patient was brought into the endoscopy unit and IV sedation was administered by anesthesia under continuous monitoring. Initially upper endoscopy was done. The Olympus GF 160 video endoscope was inserted inserted into the mouth and esophagus intubated without any difficulty and was gradually advanced into the stomach and duodenum and carefully examined. The bulb and second part of the duodenum appeared normal. The scope was then withdrawn into the stomach adequately insufflated with air and upon careful examination the antrum had mild gastritis and biopsies were done from this area. There was evidence of gastric sleeve surgery identified. Mucosa in the gastric sleeve appeared normal. al. The scope was then withdrawn into the esophagus. Hiatal hernia noted. The GE junction was located at 40 cm to the incisors. It appeared regular with no erythema erosions or ulcerations. Rest of the esophagus appeared normal. Patient tolerated the procedure well. At this time the patient continued to remain sedation. Initial digital rectal examination was normal. Olympus CF 160 video colonoscope was then inserted into the rectum and gradually advanced to the colon despite multiple attempts and changing the scope pediatric scope I was not able to advance the scope any further. At this time the procedure was terminated. The prep was excellent. Descending colon, sigmoid colon and rectum appeared normal. Katter sigmoid diverticulosis seen. Retroflexion was performed in the rectum and no lesions were noted. Patient tolerated the procedure well. Impression: 1. Upper endoscopy revealed small hiatal hernia, evidence of gastric sleeve surgery and mild antral gastritis 2. Colonoscopy after descending colon revealed scattered sigmoid diverticulosis. Scope could not be advanced beyond the sigmoid colon despite multiple attempts. Recommendations: Findings of this examination were discussed with the patient as well as her family. She was advised to follow-up with the biopsy results. Seen in the office in 2 weeks and we will schedule her for a CT colonography on an outpatient basis to evaluate the rest of the colon.
[2024-07-04 09:03] VITALS: RESP 16
[2024-07-04 10:01] VITALS: BP 129/74; PULSE 70
== END 2024-07-04 10:45 | disposition home or self-care (01) ==
LOC: ORWHC2ENDO 06:40
PROVIDERS: ATTEND Internal Medicine Gastroenterology
DX: K29.50 Unspecified chronic gastritis without bleeding (principal); K57.30 Diverticulosis of large intestine without perforation or abscess without bleeding; D50.9 Iron deficiency anemia, unspecified; K44.9 Diaphragmatic hernia without obstruction or gangrene; Z98.84 Bariatric surgery status; Z79.899 Other long term (current) drug therapy
CPT/HCPCS: 43239; 45330; J1642; J2704; J2003; 88305

== ENCOUNTER 2024-08-16 11:37 | Day surgery (SDC) | payer MEDICARE ==
[2024-08-15 15:54] VITALS: BMI 39.8
[2024-08-16 12:31] LABS: Glucose,Whole Blood 206 mg/dL (70-110)
[2024-08-16 12:38] VITALS: BP 119/61; PULSE 71; RESP 16; TEMP 98.6
[2024-08-16] MEDS: INSULIN ASPART (NovoLOG) 100 UNIT/ML VIAL SQ ONE (12:41)
[2024-08-16] MEDS: ALTEPLASE 2 MG VIAL (CATHFLO) MISCELLANE ONE (14:15)
[2024-08-16] MEDS: IOPAMIDOL-370 100ML BTL INJ ONE (14:46)
--- NOTE | 2024-08-16 15:04 | P.OP ---
Date of Procedure: 08/16/24 Description of Procedure: Preoperative diagnosis: Malfunctioning port Postoperative diagnosis: Same, cracked port Procedure: Access of right chest wall port, portogram, pharmacal thrombolysis with 2 mg of tPA Surgeon: Adrienne Lee D.O. EBL: Less than 5 cc IV fluids: Not measured Urine output: None Complications: None immediately apparent Condition: Stable Operative indication and findings: Patient is a 73-year-old female who has had a right chest wall port for previous breast cancer and chemo who now utilizes this for multiple infusions and blood draws. Until recently she has been having great function with this for the past 7 years or so. Recently she began having issues with increasing pressure and inability to flush or draw. She presents today for evaluation of this. Risks and benefits were discussed. She seems understand and is willing to proceed. Patient was brought to the special suite and placed in supine position. The right chest was prepped in usual sterile fashion and the port site was accessed with a Jacobs needle. Initial attempts at aspiration were unsuccessful. Initial flushing was slow with mild pressure. At that point it was decided likely a fibrin sheath was present therefore 2 mg of tPA was instilled and left to dwell. After this, repeat aspiration and flushing did show improvement of flow with appropriate aspiration of blood. A portogram was then obtained showing good flow through the port site itself into the superior vena cava however there is evidence of a crack at the apex of the port. Due to this the patient will need a port replaced. She is aware and will schedule outpatient follow-up. She seemed understand the plan and is willing to proceed.
--- NOTE | 2024-08-16 15:20 | IR ---
EXAMINATION TYPE: IR cva device check w fluoro DATE OF EXAM: 08/16/2024 3:04 PM COMPARISON: Pre Operative Images if available both CT/MRI or plain film CLINICAL INDICATION: Female, 73 years old with history of Neck pain, 0.4min, 0.124 DAP; TECHNIQUE: IR cva device check w fluoro, multiple fluoroscopic images provided for procedure. Total fluoroscopy time: 0.4 minutes Total submitted images to PACS: 0 DAP: 0.124 mGym2 Gycm2 uGym2 cGycm2 or equivalent. FINDINGS: IMPRESSION: 1. Report was generated for administrative purposes only. 2. Please see the operative/procedural note for further details. [facility], Workstation: [facility], 08/16/2024 3:17 PM
== END 2024-08-16 15:17 | disposition home or self-care (01) ==
LOC: CATHCVL 11:37
PROVIDERS: ATTEND Surgery
DX: T85.618A Breakdown (mechanical) of other specified internal prosthetic devices, implants and grafts, initial encounter (principal); C50.412 Malignant neoplasm of upper-outer quadrant of left female breast; F32.5 Major depressive disorder, single episode, in full remission; H57.89 Other specified disorders of eye and adnexa; I50.21 Acute systolic (congestive) heart failure; I10 Essential (primary) hypertension; Z85.3 Personal history of malignant neoplasm of breast; Z17.1 Estrogen receptor negative status [ER-]; Z88.2 Allergy status to sulfonamides; Z91.030 Bee allergy status; Z79.02 Long term (current) use of antithrombotics/antiplatelets; Z79.899 Other long term (current) drug therapy
CPT/HCPCS: 36598; 36593; J2997; Q9967

== ENCOUNTER 2024-09-14 08:37 | Day surgery (SDC) | payer MEDICARE ==
[2024-09-13 09:05] VITALS: BMI 40.7
[~2024-09-14 08:37] MED LIST changes: +LACTATED RINGERS 1,000 ML IV SCH; +MIDAZOLAM 2 MG/2 ML VIAL IV PRN; +Pre Op ABX Message 1 EACH MISC MISCELLANE ONE; -REGADENOSON 0.4 MG/5 ML SYRINGE IV PRN
[2024-09-14] MEDS: IV FLUID CONTINUATION 1,000 ML IV ONE (09:15)
[2024-09-14 09:47] LABS: Glucose,Whole Blood 143 mg/dL (70-110)
[2024-09-14] MEDS: DEXAMETHASONE SOD PHOSPHATE 4 MG/ML 1 ML VIAL IV ONE (10:13)
[2024-09-14] MEDS: ONDANSETRON 4 MG/2 ML VIAL IVP ONE (10:13)
[2024-09-14] MEDS ORDERED: MIDAZOLAM 2 MG/2 ML VIAL ONE (10:18)
[2024-09-14] MEDS ORDERED: ceFAZolin 1 GM/50 ML BAG (PMX) ONE (10:18)
[2024-09-14] MEDS ORDERED: fentaNYL (PF) 50 MCG/ML 2 ML AMP ONE (10:18)
[2024-09-14] MEDS ORDERED: PHENYLEPHRINE-0.9% NACL SYG 1,000 MCG/10 ML SYRINGE ONE (10:18)
[2024-09-14] MEDS ORDERED: LIDOCAINE 1% INJ 10MG/ML (20 ML MDV) ONE (10:18)
[2024-09-14] MEDS ORDERED: GLYCOPYRROLATE 0.2 MG/ML 2 ML VIAL ONE (10:18)
[2024-09-14] MEDS ORDERED: ePHEDrine 50 MG/ML 1 ML VIAL ONE (10:18)
[2024-09-14] MEDS ORDERED: PROPOFOL 10 MG/ML 20 ML VIAL IV ONE (10:18)
[2024-09-14] MEDS: LIDOCAINE 1% INJ 10MG/ML (20 ML MDV) SQ ONE (10:32)
[2024-09-14] MEDS: HEPARIN SODIUM,PORCINE 100 UNIT/ML 5 ML VIAL IV ONE (10:33)
[2024-09-14] MEDS: HEPARIN SODIUM,PORCINE 10,000 UNIT in SODIUM CHLORIDE 0.9% 1,000 ML IRRIGATION ONE (10:34)
[2024-09-14] MEDS: SODIUM CHLORIDE 0.9% 50 ML with ceFAZolin 2,000 MG IV ONE (10:56)
[2024-09-14 11:58] VITALS: TEMP 97.9
--- NOTE | 2024-09-14 12:00 | FL ---
EXAMINATION TYPE: FL guided central line placemt DATE OF EXAM: 09/14/2024 11:43 AM COMPARISON: Pre Operative Images if available both CT/MRI or plain film CLINICAL INDICATION: Female, 73 years old with history of PORT A CATH; TECHNIQUE: FL guided central line placemt, multiple fluoroscopic images provided for procedure. Total fluoroscopy time: 59 seconds Total submitted images to PACS: 6 DAP: 3.1690 mGym2 Gycm2 uGym2 cGycm2 or equivalent. FINDINGS: Fluoroscopic imaging for Port-A-Cath insertion no evidence for pneumothorax. Multilevel degeneration changes of the spine. IMPRESSION: 1. No evidence for intraoperative complication. 2. Please see the operative/procedural note for further details. [facility], , 09/14/2024 11:57 AM
[2024-09-14 12:03] LABS: Glucose,Whole Blood 122 mg/dL (70-110)
[2024-09-14] MEDS: HYDROmorphone 0.5 MG/0.5 ML SYRINGE IVP PRN (12:06)
--- NOTE | 2024-09-14 12:07 | P.OP ---
Date of Procedure: 09/14/24 Description of Procedure: Preoperative diagnosis: Malfunctioning right chest wall port Postoperative diagnosis: Same Procedure: Replacement of right chest wall port with fluoroscopic assistance and guidance Surgeon: Adrienne Lee D.O. EBL: 5 cc IV fluids: 600 cc Urine output: See records Drains: Not measured Complications: None Condition: Stable Operative indication and findings: Patient is a 73-year-old female with a right sided chest wall port due to significantly poor peripheral IV access. She had an issue with none functionality recently and was found to have a crack at the apex of the port therefore placement was recommended. Risk and benefits were discussed, the hope was that we would be able to replace the port without any new access and utilize the port itself for an exchange.. She seemingly understood and is willing to proceed. Procedure in detail: Patient was brought to the op suite and placed in supine position. Initially there was issues with getting IV access for the case itself and there was infiltration to the right upper extremity. The ultrasound was then utilized and a left-sided IV was identified and obtained. Anesthesia was induced and LMA was placed. The right neck was prepped and draped in usual fashion. A preprocedural timeout was performed, all parties were in agreement. At the area of the apex of the catheter, the skin was anesthetized and incision was made and Bovie dissected down to level the catheter. The catheter was grasped and transected. An 018 wire was placed through the previous catheter. The catheter was removed and a micro access sheath was placed. The 035 Glidewire was placed into the sheath and left in place. Attention was then turned towards the chest wall, at the previous incision, the area was anesthetized and the incision was reopened. Was carried down to the level of the port with blunt dissection and electrocautery. The port was removed and discarded. The fibrinous sheath of the pocket was excised. The area was irrigated and a 6 port was placed. 3 oh stay sutures were placed in the subcutaneous tissue and left untied. The catheter was then tunneled. The tear- away sheath was then placed over the guidewire and Seldinger technique and the catheter was cut to size and placed. The tear-away sheath was removed. The catheter aspirated and flushed freely. It was hep-locked. The areas of incision were closed with 3-0 Vicryl in interrupted fashion the deep dermal and running 4-0 Monocryl in subcuticular. Glue and dressings were placed. The patient was let awaken from anesthesia and transported recovery in stable condition having tolerated the procedure well. Plan - Discharge Summary Discharge Rx Participant: Yes New Discharge Prescriptions: No Action Calcium Citrate/Vitamin D3 [Calcium Citrate - Vit D3 Tab] 1 tab PO BID Multivitamins, Thera [Multivitamin (formulary)] 1 tab PO DAILY lisinopriL [Zestril] 10 mg PO BID Biotin 300 mcg PO DAILY carvediloL [Coreg] 6.25 mg PO BID Atorvastatin [Lipitor] 40 mg PO HS #30 tablet Clopidogrel [Plavix] 75 mg PO DAILY #30 tablet metFORMIN HCL 500 mg PO DAILY Empagliflozin [Jardiance] 25 mg PO DAILY DULoxetine HCL [Cymbalta] 60 mg PO HS Ascorbic Acid [Vitamin C] 500 mg PO BID Potassium Gluconate 90 mg PO DAILY amLODIPine [Norvasc] 5 mg PO HS hydroCHLOROthiazide 25 mg PO DAILY Ezetimibe [Zetia] 10 mg PO DAILY Discharge Medication List Calcium Citrate/Vitamin D3 [Calcium Citrate - Vit D3 Tab] 1 tab PO BID 02/18/14 [History] Multivitamins, Thera [Multivitamin (formulary)] 1 tab PO DAILY 06/03/17 [History] lisinopriL [Zestril] 10 mg PO BID 06/09/17 [History] Biotin 300 mcg PO DAILY 12/22/17 [History] carvediloL [Coreg] 6.25 mg PO BID 12/22/17 [History] Atorvastatin [Lipitor] 40 mg PO HS #30 tablet 01/04/18 [Rx] Clopidogrel [Plavix] 75 mg PO DAILY #30 tablet 01/04/18 [Rx] Empagliflozin [Jardiance] 25 mg PO DAILY 12/25/20 [History] amLODIPine [Norvasc] 5 mg PO HS 12/25/20 [History] metFORMIN HCL 500 mg PO DAILY 12/25/20 [History] Ascorbic Acid [Vitamin C] 500 mg PO BID 01/31/24 [History] DULoxetine HCL [Cymbalta] 60 mg PO HS 01/31/24 [History] Potassium Gluconate 90 mg PO DAILY 08/15/24 [History] Ezetimibe [Zetia] 10 mg PO DAILY 08/16/24 [History] hydroCHLOROthiazide 25 mg PO DAILY 08/16/24 [History] Activity/Diet/Wound Care/Special Instructions: Resume regular diet. Resume regular activity. May shower starting tomorrow. No soaking. Follow-up in the office. Please call for an appointment on Tuesday for TueSeptember 26 Discharge Disposition: HOME SELF-CARE
[2024-09-14 13:29] VITALS: RESP 18
[2024-09-14 13:57] VITALS: BP 130/73; PULSE 72
== END 2024-09-14 14:17 | disposition home or self-care (01) ==
LOC: OR 08:37
PROVIDERS: ATTEND Surgery
DX: T82.594A Other mechanical complication of infusion catheter, initial encounter (principal); D64.9 Anemia, unspecified; I10 Essential (primary) hypertension; I25.2 Old myocardial infarction; E78.5 Hyperlipidemia, unspecified; I11.0 Hypertensive heart disease with heart failure; F31.9 Bipolar disorder, unspecified; I50.9 Heart failure, unspecified; I25.10 Atherosclerotic heart disease of native coronary artery without angina pectoris; M19.90 Unspecified osteoarthritis, unspecified site; Z79.899 Other long term (current) drug therapy; Z79.84 Long term (current) use of oral hypoglycemic drugs; Z79.02 Long term (current) use of antithrombotics/antiplatelets; Y83.8 Other surgical procedures as the cause of abnormal reaction of the patient, or of later complication, without mention of misadventure at the time of the procedure
CPT/HCPCS: 77001; 36582; C1788; J2250; J1644; J1642; J1100; J2405; J0690 ×2; J2003; J3010; J2704; J1171; J2371; J1596

== ENCOUNTER → 2024-10-26 | Day surgery (SDC) | payer MEDICARE ==
[2024-10-26 11:00] LABS: Glucose,Whole Blood 126 mg/dL (70-110)
[2024-10-26] MEDS: GLUCAGON 1 MG/ML VIAL IM STA (11:18)
[2024-10-26 11:40] VITALS: BP 116/66; PULSE 67; RESP 16; TEMP 97.9
--- NOTE | 2024-10-26 18:51 | MR ---
EXAMINATION TYPE: MR Enterography DATE OF EXAM: 10/26/2024 12:15 PM COMPARISON: None. CLINICAL INDICATION: Female, 74 years old with history of D64.9 Normocytic anemia; PHH, Normocytic an emia, hx of gastric sleeve TECHNIQUE: Standard multiplanar, multisequence imaging of the abdomen is performed without and with I V contrast, patient is injected with 10 mL intravenous Gadobutrol gadolinium contrast. Oral Glucagon was given as per enterography protocol. Oral Contrast: 750 [place] FINDINGS: LOWER CHEST: No significant findings. ABDOMEN Bowel: The small bowel distention is inadequate proximally. No definite evidence to suggest abnormal bowel wall thickening involving a small bowel or large bowel. No evidence of bowel obstruction. No evidence for mucosal hyperenhancement, stricture or fistulous tract formation. There is mild hyperemi a of the colon in the left lower quadrant hernia sac. Postsurgical changes to the stomach Peritoneum: No evidence of pneumoperitoneum, free fluid, or adenopathy. Liver: Unremarkable. Gallbladder and Bile ducts: Unremarkable. Pancreas: Unremarkable. Spleen: Unremarkable. Adrenal glands: Unremarkable. Kidneys: Unremarkable. Bladder: Unremarkable. Reproductive: Endometrium within normal limits for thickness. Lymph Nodes: Vasculature: Unremarkable. No aortic aneurysm. Musculoskeletal: The osseous structures appear intact. Moderate degeneration changes of the spine dex troscoliosis L3-L4. Abdominal wall: Left inferior ventral wall hernia in the inguinal region with loops of colon entering . Few scattered colonic diverticula present. Fat-containing umbilical hernia. IMPRESSION: 1. Left lower ventral wall hernia containing loops of large bowel. Mild hyperemia in the loop of col on within the hernia sac suggesting inflammation. 2. No evidence for lymphadenopathy or mass. [facility], , 10/26/2024 6:49 PM
== END ==
LOC: RADMRIMAIN 09:47
PROVIDERS: ATTEND Internal Medicine
DX: D64.9 Anemia, unspecified (principal); Z98.84 Bariatric surgery status
CPT/HCPCS: 96372; 72197; 74183; J1610; J1642; A9585

== ENCOUNTER → 2024-12-24 | Outpatient (CLI) | payer MEDICARE ==
[2024-12-24 14:04] LABS: INR 0.9 (<1.2); Partial Thromboplastin Time 22.3 sec (22.0-30.0)
[2024-12-24 18:26] LABS: HCT 35.6 % (37.2-46.3); HGB 11.2 g/dL (12.0-15.0); MCH 29.6 pg (27.0-32.0); MCHC 31.5 g/dL (32.0-37.0); MCV 94.2 FL (80.0-97.0); Mean Platelet Volume 9.2 FL (9.5-12.2); NRBC Per 100 WBC 0 X 10*3/uL (0.00-0.01); Platelet Count 294 X 10*3/uL (140-440); RBC 3.78 X 10*6/uL (4.10-5.20); RDW 15.2 % (11.5-14.5); WBC 5.89 X 10*3/uL (4.50-10.00)
[2024-12-24 19:04] LABS: % Iron Saturation 18.05 (12.00-45.00); BUN/Creat Ratio 37.44 Ratio (12.00-20.00); Blood Urea Nitrogen 33.7 mg/dL (9.0-27.0); Carbon Dioxide 23.9 mmol/L (21.6-31.8); Chloride 98 mmol/L (96-109); Chol/HDL Ratio 2.66 Ratio; Glucose 141 mg/dL (70-110); Iron 63 UG/DL (50-170); LDL Cholesterol,Calculated 39.5 mg/dL (0.0-131.0); Magnesium 1.9 mg/dL (1.5-2.4); Phosphorus 4.2 mg/dL (2.4-5.1); Potassium 4.4 mmol/L (3.5-5.5); Sodium 137 mmol/L (135-145); Total Iron Binding Capacity 349 UG/DL (228-460)
[2024-12-24 19:05] LABS: ALT 20 U/L (8-44); AST 19 U/L (13-35); Albumin 4.3 g/dL (3.8-4.9); Albumin/Globulin Ratio 1.79 Ratio (1.60-3.17); Alkaline Phosphatase 62 U/L (41-126); Calcium 9.7 mg/dL (8.7-10.3); Globulin 2.4 g/dL (1.6-3.3); Total Bilirubin <0.2 mg/dL (0.3-1.2); Total Protein 6.7 g/dL (6.2-8.2)
[2024-12-25 12:45] LABS: Zinc, Serum 70 ug/dL (60-130)
[2024-12-26 10:07] LABS: Vitamin A 81 ug/dL (38-106)
== END ==
LOC: LABWHC1 12:29
PROVIDERS: ATTEND Surgery Plastic and Reconstructive Surgery
DX: E89.0 Postprocedural hypothyroidism (principal); I44.7 Left bundle-branch block, unspecified; E66.01 Morbid (severe) obesity due to excess calories; E44.0 Moderate protein-calorie malnutrition; E45 Retarded development following protein-calorie malnutrition; K91.2 Postsurgical malabsorption, not elsewhere classified; E55.9 Vitamin D deficiency, unspecified; K74.1 Hepatic sclerosis; N19 Unspecified kidney failure; T56.894A Toxic effect of other metals, undetermined, initial encounter; K50.90 Crohn's disease, unspecified, without complications; R94.31 Abnormal electrocardiogram [ECG] [EKG]
CPT/HCPCS: 84255; 84134; 84425; 80061; 80053; 82607; 82728; 82525; 82746; 83540; 83550; 83735; 84100; 84443; 84590; 84630; 85027; 85610; 85730; 82306; 83970; 80307; 93005; 36415; G0480; 80323

== ENCOUNTER → 2025-01-02 | Outpatient (CLI) | payer MEDICARE ==
[2025-01-02 16:10] VITALS: BP 105/65; PULSE 69; RESP 16; TEMP 97.6; BMI 39.6
--- NOTE | 2025-01-02 17:20 | P.BASOAP ---
Subjective Progress Note Date: 01/02/[address] SHRUTHI Ma. EKG is boderline. ECHO and stress test in May. Willl see PCP. Labs reviewed. She is 90 grams protein. Water daily is on HCTZ. Iron infusion. HOld on TSH. GEt heart checked. She stopped eating candy and chocolate. Objective - Vital Signs Vital signs: Vital Signs Temp 97.6 F 01/02/25 16:08 Pulse 69 01/02/25 16:08 Resp 16 01/02/25 16:08 BP 105/65 01/02/25 16:08 Pulse Ox FiO2 Intake & Output 01/01/25 01/02/25 01/02/25 18:59 06:59 18:59 Weight 98.43 kg Assessment/Plan Plan: Date: 01/02/25 Initial Weight: 113.534 kg Initial BMI: 45.8 Current Weight: 98.43 kg Current BMI: 39.6 Type of Surgery: Vertical Sleeve Gastrectomy Total Volume in Band: Previous Volume: Volume Removed: Volume Added: Band Size:
== END ==
LOC: BARWHC3 15:05
PROVIDERS: ATTEND Surgery Plastic and Reconstructive Surgery
DX: E66.01 Morbid (severe) obesity due to excess calories (principal); Z68.39 Body mass index [BMI] 39.0-39.9, adult; Z88.2 Allergy status to sulfonamides; Z91.030 Bee allergy status
CPT/HCPCS: 99211

== ENCOUNTER → 2025-03-19 | Outpatient (CLI) | payer MEDICARE ==
[~2025-03-19] MED LIST changes: -LACTATED RINGERS 1,000 ML IV SCH; -MIDAZOLAM 2 MG/2 ML VIAL IV PRN; -Pre Op ABX Message 1 EACH MISC MISCELLANE ONE; +REGADENOSON 0.4 MG/5 ML SYRINGE IV PRN
--- NOTE | 2025-03-19 12:51 | NM ---
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 The patient received 0.4mg Lexiscan, 26.9 mCi Tc 99m Sestamibi - Stress images obtained [address] injection FINDINGS: Review of stress and rest SPECT images large inferior wall defect on rest. This area of decreased per fusion is much smaller on stress localized to the apical inferior wall. No discrete reversibility is seen. Gated analysis shows normal wall motion with an estimated left ventricular ejection fraction of 71 %. TID is calculated at 0.89, within normal limits. IMPRESSION: Inferior wall defect much larger on rest suggesting prominent attenuation artifact. There could be a small area of underlying old infarct localized to the apical inferior wall. No discrete reversibility is seen. [facility], Workstation: TY, 03/19/2025 12:48 PM
--- NOTE | 2025-03-19 21:51 | CA ---
Transthoracic Echo Report Name: Christine Lozoya Age: 74 Gender: F : 1950 Exam Date: 03/19/2025 08:30 Exam Location: [place] Echo Ht (in): 64 Wt (lb): 215 Ordering Physician: Ruel English MD Attending/Referring Phys: Ruel English MD Cook Dinner Amarilys Lua RDCS Procedure CPT: Indications: I25.10 ATHSCL HEART DISEASE OF [place] CORONARY ART Cardiac Hx: Technical Quality: Good Contrast 1: Total Dose (mL): Contrast 2: Total Dose (mL): MEASUREMENTS (Male / Female) Normal Values 2D ECHO LV Diastolic Diameter PLAX 5.2 cm 4.2 - 5.9 / 3.9 - 5.3 cm LV Systolic Diameter PLAX 3.4 cm IVS Diastolic Thickness 0.8 cm 0.6 - 1.0 / 0.6 - 0.9 cm LVPW Diastolic Thickness 1.0 cm 0.6 - 1.0 / 0.6 - 0.9 cm LV Relative Wall Thickness 0.3 RV Internal Dim ED PLAX 3.2 cm LVOT Diameter 2.3 cm LA Systolic Diameter LX 3.6 cm 3.0 - 4.0 / 2.7 - 3.8 cm LV Diastolic Volume MOD BP 87.1 cm??? 67 - 155 / 56 - 104 cm??? LV Systolic Volume MOD BP 48.7 cm??? 22 - 58 / 19 - 49 cm??? LV Ejection Fraction MOD BP 44.1 % >= 55 % LV Cardiac Index MOD BP 1236.3 cm???/min???m??? LV Diastolic Volume MOD 4C 94.8 cm??? LV Systolic Volume MOD 4C 45.6 cm??? LV Ejection Fraction MOD 4C 51.9 % LV Cardiac Index MOD 4C 1585.1 cm???/min???m??? LV Diastolic Length 4C 7.2 cm LV Systolic Length 4C 5.8 cm LV Diastolic Volume MOD 2C 80.6 cm??? LV Systolic Volume MOD 2C 47.2 cm??? LV Ejection Fraction MOD 2C 41.5 % LV Cardiac Index MOD 2C 1075.1 cm???/min???m??? LV Diastolic Length 2C 7.1 cm LV Systolic Length 2C 6.9 cm LA Volume 44.5 cm??? 18 - 58 / 22 - 52 cm??? LA Volume Index 20.8 cm???/m??? 16 - 28 cm???/m??? M-MODE Aortic Root Diameter MM 3.0 cm AV Cusp Separation MM 1.7 cm DOPPLER AV Peak Velocity 178.3 cm/s AV Peak Gradient 12.7 mmHg AV Mean Velocity 130.5 cm/s AV Mean Gradient 7.5 mmHg AV Velocity Time Integral 39.3 cm LVOT Peak Velocity 89.9 cm/s LVOT Peak Gradient 3.2 mmHg LVOT Velocity Time Integral 20.0 cm LVOT Stroke Volume 84.5 cm??? LVOT Stroke Volume Index 41.9 ml/m??? LVOT Cardiac Index 2719.6 cm???/min???m??? AV Area Cont Eq vti 2.2 cm??? AV Area Cont Eq pk 2.1 cm??? MV Area PHT 2.0 cm??? Mitral E Point Velocity 67.3 cm/s Mitral A Point Velocity 104.0 cm/s Mitral E to A Ratio 0.6 MV Deceleration Time 382.4 ms TR Peak Velocity 210.2 cm/s TR Peak Gradient 17.7 mmHg Right Ventricular Systolic Press 21.3 mmHg FINDINGS Left Ventricle Left ventricular ejection fraction is estimated at 50-55 %. Left ventricular cavity size normal. Left ventricular wall thickness normal. No obvious regional wall motion abnormalities. Right Ventricle Normal right ventricular size. Right ventricular systolic pressure within normal limits. Right Atrium Normal right atrial size. No right atrial thrombus or mass seen. Left Atrium Normal left atrial size. No left atrial thrombus or mass present. Mitral Valve Mitral valve thickened. Moderate mitral annular calcification of posterior leaflet. Trace mitral regurgitation. Aortic Valve Trileaflet aortic valve. Thickened aortic valve without stenosis. No aortic regurgitation. Tricuspid Valve Structurally normal tricuspid valve. Mild tricuspid regurgitation. Pulmonic Valve Structurally normal pulmonic valve. Trace to mild pulmonic regurgitation. Pericardium No pericardial effusion. Aorta Normal size aortic root and proximal ascending aorta. CONCLUSIONS LVEF 55% No obvious regional wall motion abnormality Grade 1 diastolic dysfunction Normal RV size and systolic function Mitral annular calcification noticed. Mild MR, mild TR Previewed by: Dr Reji Villarreal (Electronically Signed) Final Date: 19 March 2025 21:50
--- NOTE | 2025-03-19 21:54 | CA ---
Lexiscan Nuclear Stress Test Report Name: Christine Lozoya Exam Date: 03/19/2025 09:53 Exam Location: [place] Stress Ht (in): 63 Wt (lb): 205 BSA: 1.95 Ordering Phys: Ruel English MD Referring Phys: Ruel English MD Technologist: TANK Age: 74 Gender: F : 1950 Procedure CPT: Indications: I25.10 ATHSCL HEART DISEASE OF [place] CORONARY ART ICD-10 Codes: Patient History: HTN, DIABETIC, HYPERCHOLESTEROLEMIA, FAMILY HX OF HEART DISEASE, PRIOR HEART CATH WITH 7 STENT Medications: SEE LIST,,, Meds past 24 hrs: Pretest Chest Pain: STRESS TEST Lexiscan Protocol Exercise Duration (min:sec): 01:[address] Depressions (mm): Angina Score: Cali Score: Resting HR (bpm): 64 Peak HR (bpm): 76 Resting BP (mmHg): 95 / 65 Peak BP (mmHg): 95 / 65 MPHR: 148 Target HR: 126 % MPHR: 51 METS: 1.0 Total Dose: Peak Dose: Atropine: Double Product: 7220 BP Response: Stress Termination: INFUSION COMPLETE Stress Symptoms: NO SYMPTOMS Stress Summary: ECG ANALYSIS Resting ECG: Stress ECG: CONCLUSIONS RESTING EKG: [Normal sinus rhythm, normal EKG] , Heart rate 62 BPM Patient recieved IV infusion of Lexiscan 0.4mg and at peak infusion STRESS EKG showed: [No significant ST-T wave changes diagnostic for ischemia by ST segment analysis] ARRYTHMIAS: Occasional PVCs noticed, no sustained arrhythmias noticed. CONCLUSION: 1. Normal clinical response to Lexiscan infusion. 2. Non-ischemic EKG response to lexiscan infusion 3. Mildly hypotensive at baseline BP 95/ 65 mm Please refer to the nuclear imaging portion of this stress test for complete interpretation of the study. Dr Reji Villarreal (Electronically Signed) Final Date: 19 March 2025 21:53
== END | disposition home or self-care (01) ==
LOC: RADNMMAIN 08:16
PROVIDERS: ATTEND Internal Medicine
DX: I25.10 Atherosclerotic heart disease of native coronary artery without angina pectoris (principal); I44.7 Left bundle-branch block, unspecified; E11.9 Type 2 diabetes mellitus without complications; E78.00 Pure hypercholesterolemia, unspecified; I10 Essential (primary) hypertension; I34.81 Nonrheumatic mitral (valve) annulus calcification; Z82.49 Family history of ischemic heart disease and other diseases of the circulatory system
CPT/HCPCS: 93017; 93306; 78452; A9500; J2785